=== PATIENT | male | born 1935 | race Caucasian/White ===

== ENCOUNTER 2022-02-18 08:23 | Inpatient (IN) | payer MEDICARE, SELFPAY ==
--- NOTE | ~2022-02-18 | XR_ITS ---
EXAMINATION: XR CHEST CLINICAL INFORMATION: Decreased breath sounds in the left lower lobe. COMPARISON: Chest CT scan dated 10/04/2021 TECHNIQUE: 2 views of the chest were obtained. FINDINGS: Opacification is seen in the left lower lobe. The right lung is clear. The heart and mediastinal structures are unremarkable. Diffuse sclerosis is seen in the visualized osseous structures. XR/XR chest 2V IMPRESSION: 1. Moderate left pleural effusion/infiltrate/atelectasis similar to the previous CT scan. 2. 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
[2022-02-18 08:31] VITALS: BP 115/54; PULSE 73; RESP 18; TEMP 36.1; O2SAT 98; BMI 22.9
[2022-02-18 10:19] LABS: Hematocrit 31.7 % (42.0-52.0); Hemoglobin 9.1 g/dl (14.0-18.0); Mean Corpuscular HGB Conc 28.7 g/dl (31.0-36.0); Mean Corpuscular Hemoglobin 23.9 pg (27.0-33.0); Mean Corpuscular Volume 83.4 fL (80.0-98.0); Mean Platelet Volume 9.2 fL (9.4-12.4); Platelet Count 186 X10*3/uL (160-400); Red Cell Distribution Width 19.3 % (11.0-16.0)
--- NOTE | 2022-02-18 10:19 | ECG_ITS ---
Test Reason : LEG SWELLING Blood Pressure : / mmHG Vent. Rate : 077 BPM Atrial Rate : 000 BPM P-R Int : 000 ms QRS Dur : 084 ms QT Int : 378 ms P-R-T Axes : 000 020 053 degrees QTc Int : 427 ms Atrial fibrillation Abnormal ECG No previous ECGs available Referred By: Nimo Dean Electronically Signed By:CARLOS SMITH MD
[2022-02-18 10:21] LABS: NRBC Pct Auto 1.4 /100WBC (0.0-0.2); White Blood Count 33.5 X10*3/uL (4.8-10.8)
--- NOTE | 2022-02-18 10:27 | ED_ITS ---
HPI - Extremity Problem General Chief complaint: Extremity Problem Stated complaint: leg swelling hx gout Time Seen by Provider: 02/18/22 09:45 Source: patient and EMS Mode of arrival: EMS History of Present Illness HPI Narrative: 86-year-old male with a past medical history of CHF on Lasix, gout, AFib on Eliquis, CLL, splenomegaly, anemia, gout, presenting to the ED complaining bilateral foot/leg > LLE x few days with increasing swelling and erythema. Patient reports that he saw his PCP on Monday had ultrasound was negative for DVT. Patient unable to ambulate secondary to pain this morning. Denies known injury/trauma. Also reports dyspnea in the morning and on exertion. Fever, chills, CP coughing, nausea/vomiting, numbness/tingling MD Complaint: extremity pain, extremity swelling and joint pain Onset (ago): day(s) Pain Consistency: constant Related Data Home Medications Medication Instructions Recorded Confirmed albuterol sulfate 90 mcg/actuation 2 puff PO Q6H PRN 02/18/22 02/18/22 aerosol inhaler allopurinol 300 mg tablet 1 tab PO DAILY 02/18/22 02/18/22 apixaban 5 mg tablet (Eliquis) 1 tab PO BID 02/18/22 02/18/22 ascorbic acid (vitamin C) 500 mg 1 tab PO DAILY 02/18/22 02/18/22 tablet calcium carbonate 333 mg-magnesium 1 tab PO DAILY 02/18/22 02/18/22 oxide 133 mg-zinc sulf 5 mg tablet fluticasone furoate 100 1 puff PO DAILY 02/18/22 02/18/22 mcg-vilanterol 25 mcg/dose inhalation powder (Breo Ellipta) hydroxyurea 500 mg capsule 1 cap PO DAILY 02/18/22 02/18/22 metoprolol tartrate 25 mg tablet 1.5 tab PO BID 02/18/22 02/18/22 fobhsaoh-yqq-fnnsx acid 300 1 tab PO DAILY 02/18/22 02/18/22 mcg-lycopene 600 mcg-lutein 300 mcg tablet (Centrum Silver Men) omega 0-ata-ivt-fish oil 1,200 mg 1 cap PO DAILY 02/18/22 02/18/22 (144 mg-216 mg) capsule (Fish Oil) tamsulosin 0.4 mg capsule 1 cap PO DAILY 02/18/22 02/18/22 torsemide 20 mg tablet 3 tab PO BID 02/18/22 02/18/22 vitamin A-vitamin C-vit E-min 1 tab PO DAILY 02/18/22 02/18/22 tablet Allergies Allergy/AdvReac Type Severity Reaction Status Date / Time No Known Allergies Allergy Verified 02/18/22 10:19 Review of Systems Review of Systems: Constitutional: No Fever, No Chills, No Fatigue, No Malaise ENT/Mouth: No Ear Pain, No Nasal Congestion, No sore throat, No Rhinorrhea Eyes: No Eye Pain, No Swelling, No Redness, No Discharge Cardiovascular: No Chest Pain, + SOB, + Dyspnea on Exertion, No Orthopnea, + Edema, No Palpitations Respiratory: No Cough, No Sputum, No Wheezing, No Dyspnea Gastrointestinal: No Nausea, No Vomiting, No Diarrhea, No Constipation, No Abdominal pain Genitourinary: No Dysuria, No Urinary Frequency, No Hematuria, No Flank Pain, No Urinary Flow Changes Musculoskeletal: + joint pain, No Myalgias, + Joint Swelling Skin: + Skin Lesions, No rash Neuro: No Weakness, No Numbness, No Paresthesias, No Headache Yes all other systems are reviewed and are negative [facility] Past Medical History Attestation statement: The following information was validated with the patient. Medical History Afib CHF (congestive heart failure) Gout Social History Social History Advance Directives: Yes Advance Directives Information Provided: Yes Advance Directives on File: No Physical Exam Vital Signs: Vital Signs: Last Vital Signs Temp 97.0 F 02/18/22 08:31 Pulse 75 02/18/22 12:09 Resp 14 02/18/22 12:09 BP 123/61 02/18/22 12:09 Pulse Ox 94 02/18/22 12:09 BMI result Body Mass Index 22.9 Const: General: cooperative, healthy appearing and no acute distress Orientation/consciousness: patient oriented x3 Limitations: no limitations HEENT: Head: Yes normal to inspection and Yes atraumatic Ears: hearing grossly normal bilaterally General nose exam: Normal external nose present Face and sinus: Yes normal facial exam Eyes: General: appearance normal, both eyes and all related structures EOM: EOMs intact bilaterally Neck: Neck: Yes normal visual inspection and Yes no meningeal signs Resp: Effort & Inspection: normal respiratory effort Auscultation: diminished lung sounds on the left in the lower lung chance Cardio: Rate: regular rate Heart sounds: S1 normal heart sound present and S2 normal heart sound present GI: Inspection: Yes normal to inspection Palpation (GI): Soft to palpation, nontender, no guarding and not rigid : General: Yes no CVA tenderness Back/Spine/Pelvis: Back: no CVA tenderness Skin: Rashes: no rashes Wounds: no wounds Neuro: General: patient oriented x3 and no meningeal signs Gait exam (Neuro): Normal gait present Extrem: Other: Please refer to imaging, bilateral LE pitting edema > LLE with a the extremity erythema and noted erythema to MTP. NV intact Course Course Course Narrative: - leukocytosis of 33.5 > likely chronic from patient's CLL, pending medical records from [facility] -per records obtained from [facility] on 01/15/22 his WBC count at that time was 35,000 -ESR/CRP mildly elevated. BUN of 24. BNP of 458, labs otherwise unremarkable XR chest 2V IMPRESSION: 1. Moderate left pleural effusion/infiltrate/atelectasis similar to the previous CT scan. 2. 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 > will discuss case with hospitalist as patient unable to ambulate secondary to pain, and with exertional dyspnea/dyspnea in the a.m. Plan to admit for further management MDM - Extremity (Nontraumatic) MDM Narrative Medical decision making narrative: 86-year-old male with a past medical history of CHF on Lasix, gout, AFib on Eliquis, CLL, splenomegaly, anemia, gout, presenting to the ED complaining bilateral foot/leg > LLE x few days with increasing swelling and erythema. Also reports dyspnea in the morning and on exertion. On exam vital signs stable, NAD, physical exam as above. Concern for CHF exacerbation vs pleural effusion vs cellulitis vs gout. Unlikely DVT as patient is anticoagulated and recent negative ultrasound Plan: EKG, labs, CXR, re-evaluate Differential Diagnosis Differential diagnosis: Likely gout, cellulitis, lower extremity edema and deep vein thrombosis of lower extremity Medical Records Attestation: I reviewed the patient's medical records. Lab Data Attestation: I reviewed the patient's lab results. Result diagrams: 02/18/22 10:10 02/18/22 10:10 Labs: Lab Results 02/18/22 02/18/22 02/18/22 Range/Units 10:10 10:10 10:10 WBC 33.5 H* (4.8-10.8) X10*3/uL RBC 3.80 L (4.60-5.80) X10*6/uL Hgb 9.1 L (14.0-18.0) g/dl Hct 31.7 L (42.0-52.0) % MCV 83.4 (80.0-98.0) fL MCH 23.9 L (27.0-33.0) pg MCHC 28.7 L (31.0-36.0) g/dl RDW 19.3 H (11.0-16.0) % Plt Count 186 (160-400) X10*3/uL MPV 9.2 L (9.4-12.4) fL Immature Gran % (Auto) Cancelled Neut % (Auto) Cancelled Lymph % (Auto) Cancelled [place] % (Auto) Cancelled Eos % (Auto) Cancelled Baso % (Auto) Cancelled Lymph # (Auto) Cancelled [place] # (Auto) Cancelled Eos # (Auto) Cancelled Baso # (Auto) Cancelled Abs Immat Gran (auto) Cancelled Absolute Neuts (auto) Cancelled Absolute Nucleated RBC 0.470 H (0.0-0.012) X10*3/uL Nucleated RBC % (auto) 1.4 H (0.0-0.2) /100WBC Neutrophils % (Manual) 73 (45-73) % Band Neutrophils % 12 H (3-5) % Lymphocytes % (Manual) 6 L (20-40) % Monocytes % (Manual) 3 (2-11) % Eosinophils % (Manual) 3 (0-4) % Basophils % (Manual) 2 (0-2) % Metamyelocytes % 1 % Abs Neuts (Manual) 28.5 H (2.0-8.3) X10*3/uL Lymphocytes # (Manual) 2.0 (1.2-4.9) X10*3/uL Monocytes # (Manual) 1.0 (0.1-1.2) X10*3/uL Eosinophils # (Manual) 1.0 H (0.0-0.4) X10*3/uL Basophils # (Manual) 0.7 H (0.0-0.2) X10*3/uL Metamyelocytes # 0.3 X10*3/uL Nucleated RBCs 3 H (0-0) /100WBC Platelet Estimate NORMAL (NORMAL) Plt Morphology Comment NORMAL RBC Morphology NOTED Polychromasia 2+ (3-5) /OIF Hypochromasia 1+ (5-14) /OIF Basophilic Stippling 1+ (0-2) /OIF Microcytosis 1+ (5-14) /OIF Tear Drop Cells 2+ (3-5) /OIF Ovalocytes 2+ (15-30) /OIF Acanthocytes (Spur) 2+ (3-5) /OIF Schistocytes 1+ (0-2) /OIF Smear Path Review SEE NOTE ESR 17 H (0-15) MM/HR PT (9.9-13.0) SEC INR (0.9-1.1) Sodium 138 (135-145) mmol/L Potassium 4.5 (3.3-5.1) mmol/L Chloride 100 (96-108) mmol/L Carbon Dioxide 31 H (22-29) mmol/L Anion Gap 12 (12-20) BUN 24 H (9-16) mg/dL Creatinine 1.22 (0.5-1.4) mg/dL Estim Creat Clear Calc 46.2 Estimated GFR 57 Random Glucose 114 (60-115) mg/dL Lactic Acid (0.5-2.0) mmol/L Calcium 8.3 L (8.4-10.2) mg/dL Magnesium 2.7 H (1.6-2.6) mg/dL Total Bilirubin 0.9 (0.0-1.0) mg/dL AST 14 (5-37) U/L ALT 8 (0-40) U/L Alkaline Phosphatase 79 (39-117) U/L Troponin I High Sens (<3.5-35.0) ng/L C-Reactive Protein 3.25 H (< or = 0.50) mg/dL C-React Prot High Sens B-Natriuretic Peptide (<100) pg/mL Total Protein 6.2 L (6.5-8.0) g/dL Albumin 3.4 L (3.5-5.0) g/dL COVID-19 ([facility]ISTIDES) (Negative) COVID-19 Clin Com 02/18/22 02/18/22 02/18/22 Range/Units 10:10 10:10 10:10 WBC (4.8-10.8) X10*3/uL RBC (4.60-5.80) X10*6/uL Hgb (14.0-18.0) g/dl Hct (42.0-52.0) % MCV (80.0-98.0) fL MCH (27.0-33.0) pg MCHC (31.0-36.0) g/dl RDW (11.0-16.0) % Plt Count (160-400) X10*3/uL MPV (9.4-12.4) fL Immature Gran % (Auto) Neut % (Auto) Lymph % (Auto) [place] % (Auto) Eos % (Auto) Baso % (Auto) Lymph # (Auto) [place] # (Auto) Eos # (Auto) Baso # (Auto) Abs Immat Gran (auto) Absolute Neuts (auto) Absolute Nucleated RBC (0.0-0.012) X10*3/uL Nucleated RBC % (auto) (0.0-0.2) /100WBC Neutrophils % (Manual) (45-73) % Band Neutrophils % (3-5) % Lymphocytes % (Manual) (20-40) % Monocytes % (Manual) (2-11) % Eosinophils % (Manual) (0-4) % Basophils % (Manual) (0-2) % Metamyelocytes % % Abs Neuts (Manual) (2.0-8.3) X10*3/uL Lymphocytes # (Manual) (1.2-4.9) X10*3/uL Monocytes # (Manual) (0.1-1.2) X10*3/uL Eosinophils # (Manual) (0.0-0.4) X10*3/uL Basophils # (Manual) (0.0-0.2) X10*3/uL Metamyelocytes # X10*3/uL Nucleated RBCs (0-0) /100WBC Platelet Estimate (NORMAL) Plt Morphology Comment RBC Morphology Polychromasia /OIF Hypochromasia /OIF Basophilic Stippling /OIF Microcytosis /OIF Tear Drop Cells /OIF Ovalocytes /OIF Acanthocytes (Spur) /OIF Schistocytes /OIF Smear Path Review ESR (0-15) MM/HR PT 17.3 H (9.9-13.0) SEC INR 1.5 H (0.9-1.1) Sodium (135-145) mmol/L Potassium (3.3-5.1) mmol/L Chloride (96-108) mmol/L Carbon Dioxide (22-29) mmol/L Anion Gap (12-20) BUN (9-16) mg/dL Creatinine (0.5-1.4) mg/dL Estim Creat Clear Calc Estimated GFR Random Glucose (60-115) mg/dL Lactic Acid 1.1 (0.5-2.0) mmol/L Calcium (8.4-10.2) mg/dL Magnesium (1.6-2.6) mg/dL Total Bilirubin (0.0-1.0) mg/dL AST (5-37) U/L ALT (0-40) U/L Alkaline Phosphatase (39-117) U/L Troponin I High Sens (<3.5-35.0) ng/L C-Reactive Protein (< or = 0.50) mg/dL C-React Prot High Sens Cancelled B-Natriuretic Peptide (<100) pg/mL Total Protein (6.5-8.0) g/dL Albumin (3.5-5.0) g/dL COVID-19 ([facility]) (Negative) COVID-19 Clin Com 02/18/22 02/18/22 Range/Units 10:10 10:45 WBC (4.8-10.8) X10*3/uL RBC (4.60-5.80) X10*6/uL Hgb (14.0-18.0) g/dl Hct (42.0-52.0) % MCV (80.0-98.0) fL MCH (27.0-33.0) pg MCHC (31.0-36.0) g/dl RDW (11.0-16.0) % Plt Count (160-400) X10*3/uL MPV (9.4-12.4) fL Immature Gran % (Auto) Neut % (Auto) Lymph % (Auto) [place] % (Auto) Eos % (Auto) Baso % (Auto) Lymph # (Auto) [place] # (Auto) Eos # (Auto) Baso # (Auto) Abs Immat Gran (auto) Absolute Neuts (auto) Absolute Nucleated RBC (0.0-0.012) X10*3/uL Nucleated RBC % (auto) (0.0-0.2) /100WBC Neutrophils % (Manual) (45-73) % Band Neutrophils % (3-5) % Lymphocytes % (Manual) (20-40) % Monocytes % (Manual) (2-11) % Eosinophils % (Manual) (0-4) % Basophils % (Manual) (0-2) % Metamyelocytes % % Abs Neuts (Manual) (2.0-8.3) X10*3/uL Lymphocytes # (Manual) (1.2-4.9) X10*3/uL Monocytes # (Manual) (0.1-1.2) X10*3/uL Eosinophils # (Manual) (0.0-0.4) X10*3/uL Basophils # (Manual) (0.0-0.2) X10*3/uL Metamyelocytes # X10*3/uL Nucleated RBCs (0-0) /100WBC Platelet Estimate (NORMAL) Plt Morphology Comment RBC Morphology Polychromasia /OIF Hypochromasia /OIF Basophilic Stippling /OIF Microcytosis /OIF Tear Drop Cells /OIF Ovalocytes /OIF Acanthocytes (Spur) /OIF Schistocytes /OIF Smear Path Review ESR (0-15) MM/HR PT (9.9-13.0) SEC INR (0.9-1.1) Sodium (135-145) mmol/L Potassium (3.3-5.1) mmol/L Chloride (96-108) mmol/L Carbon Dioxide (22-29) mmol/L Anion Gap (12-20) BUN (9-16) mg/dL Creatinine (0.5-1.4) mg/dL Estim Creat Clear Calc Estimated GFR Random Glucose (60-115) mg/dL Lactic Acid (0.5-2.0) mmol/L Calcium (8.4-10.2) mg/dL Magnesium (1.6-2.6) mg/dL Total Bilirubin (0.0-1.0) mg/dL AST (5-37) U/L ALT (0-40) U/L Alkaline Phosphatase (39-117) U/L Troponin I High Sens < 3.5 (<3.5-35.0) ng/L C-Reactive Protein (< or = 0.50) mg/dL C-React Prot High Sens B-Natriuretic Peptide 458 H (<100) pg/mL Total Protein (6.5-8.0) g/dL Albumin (3.5-5.0) g/dL COVID-19 ([facility]) Negative (Negative) COVID-19 Clin Com See Note ECG Data Attestation EKG: I personally reviewed and interpreted this ECG as follows: ECG interpretation date: 02/18/22 ECG interpretation time: 11:40 Interpretation: EKG AFib at a rate of 77. QTC 427. No STEMI/nonischemic Discharge Plan Discharge Clinical Impression: Gout, Lower extremity edema, Cellulitis Patient Disposition: Admitted As Inpatient Prescriptions: No Action hydroxyurea 500 mg capsule 1 cap PO DAILY 0RF torsemide 20 mg tablet 3 tab PO BID 0RF ascorbic acid (vitamin C) 500 mg tablet 1 tab PO DAILY 0RF tamsulosin 0.4 mg capsule 1 cap PO DAILY 0RF allopurinol 300 mg tablet 1 tab PO DAILY 0RF albuterol sulfate 90 mcg/actuation HFA aerosol inhaler 2 puff PO Q6H PRN (Reason: Wheezing) 0RF metoprolol tartrate 25 mg tablet 1.5 tab PO BID 0RF Eliquis 5 mg tablet 1 tab PO BID 0RF Breo Ellipta 100-25 mcg/dose blister with device 1 puff PO DAILY 0RF Ocuvite Tablet 1 tab PO DAILY 0RF omega 1-ice-gyl-fish oil [Fish Oil] 1,200 (144-216) mg Capsule 1 cap PO DAILY 0RF Centrum Silver Men 300-600-300 mcg Tablet 1 tab PO DAILY 0RF calcium carb-mag ox-zinc sulf 333-133-5 mg Tablet 1 tab PO DAILY 0RF Rx Instructions: administer with a meal
[2022-02-18 10:28] LABS: INTERNATIONAL NORM RATIO 1.5 (0.9-1.1); Prothrombin Time 17.3 SEC (9.9-13.0)
[2022-02-18 10:37] LABS: Lactic Acid 1.1 mmol/L (0.5-2.0)
[2022-02-18 10:42] LABS: Alanine Aminotransferase 8 U/L (0-40); Albumin Level 3.4 g/dL (3.5-5.0); Alkaline Phosphatase 79 U/L (39-117); Anion Gap 12 (12-20); Aspartate Amino Transferase 14 U/L (5-37); Bilirubin Total 0.9 mg/dL (0.0-1.0); Blood Urea Nitrogen 24 mg/dL (9-16); Calcium 8.3 mg/dL (8.4-10.2); Carbon Dioxide 31 mmol/L (22-29); Chloride 100 mmol/L (96-108); Creatinine Clr Calc Pharmacy 46.2; Estimated Glomerular Filt Rate 57; Glucose Random 114 mg/dL (60-115); Potassium 4.5 mmol/L (3.3-5.1); Sodium 138 mmol/L (135-145); Total Protein 6.2 g/dL (6.5-8.0)
[2022-02-18 10:43] LABS: C Reactive Protein 3.25 mg/dL (< or = 0.50)
[2022-02-18 10:50] LABS: Band Neutrophils Percent 12 % (3-5); Basophils Abs Manual 0.7 X10*3/uL (0.0-0.2); Basophils Percent Manual 2 % (0-2); Eosinophils Percent Manual 3 % (0-4); Lymphocytes Percent Manual 6 % (20-40); Metamyelocytes Absolute 0.3 X10*3/uL; Metamyelocytes Percent 1 %; Monocytes Percent Manual 3 % (2-11); Neutrophils Absolute Manual 28.5 X10*3/uL (2.0-8.3); Neutrophils Percent Manual 73 % (45-73); Nucleated Red Blood Cells 3 /100WBC (0-0)
[2022-02-18 10:53] LABS: RBC Morphology NOTED
[2022-02-18 10:54] LABS: Acanthocytes 2+ (3-5) /OIF; Basophilic Stippling 1+ (0-2) /OIF; Hypochromasia 1+ (5-14) /OIF; Microcytosis 1+ (5-14) /OIF; Ovalocytes 2+ (15-30) /OIF; Platelet Estimate NORMAL (NORMAL); Platelet Morphology Comment NORMAL; Polychromasia 2+ (3-5) /OIF; Schistocytes 1+ (0-2) /OIF; Tear Drop Cells 2+ (3-5) /OIF
[2022-02-18 10:57] LABS: Erythrocyte Sedimentation Rate 17 MM/HR (0-15)
[2022-02-18 11:08] LABS: COVID-19 Test Negative (Negative)
[2022-02-18 11:18] LABS: Magnesium 2.7 mg/dL (1.6-2.6)
--- NOTE | 2022-02-18 11:25 | PHA.MEDREC ---
Pharmacy Consult ? Medication Reconciliation Pharmacy has completed the medication reconciliation. No remarkable issues. Susy Hernandez, [employer]
[2022-02-18 11:30] LABS: B Type Natriuretic Peptide 458 pg/mL (<100); Troponin-I High Sensitivity < 3.5 ng/L (<3.5-35.0)
[2022-02-18] MEDS: cefTRIAXone sodium 1 GM in 0.9 % Sodium Chloride 50 ML IV (11:30)
[2022-02-18 12:09] VITALS: BP 123/61; PULSE 75; RESP 14; O2SAT 94
[2022-02-18 14:03] VITALS: BP 124/64; PULSE 87; RESP 14; TEMP 37.2; O2SAT 95
[2022-02-18] MEDS: Furosemide 40 MG/4 ML VIAL IVPUSH (14:28)
--- NOTE | 2022-02-18 14:53 | PM.IMHP ---
History of Present Illness Date of Service: 02/18/22 Chief Complaint: Right leg pain 86-year-old male with a past medical history of CHF on Lasix, gout, AFib on Eliquis, CLL, splenomegaly, anemia, gout, presenting to the ED complaining bilateral foot/leg > LLE x few days with increasing swelling and erythema. Patient reports that he saw his PCP on Monday had ultrasound was negative for DVT.? Patient unable to ambulate secondary to pain this morning.? Denies known injury/trauma. Patient also recounts a known history of gout for which he was started on allopurinol 3 weeks ago. He stated shortly after starting allopurinol his toe foot and leg pain became markedly worse. During this episode, he continued to take his Lasix. He states he has never been on a full course of steroids for this gout. In the ER, was given 1 dose of ceftriaxone for mild cellulitic changes left lower extremity. At this time he will be admitted for treatment of his cellulitis and his gout. Review of Systems Review of Systems: Denies chest pain Denies shortness of breath Denies nausea vomiting diarrhea Admits to a left foot leg pain worsens allopurinol Denies trauma [facility] Medical History Afib CHF (congestive heart failure) Gout Social History Advance Directives: Yes Advance Directives Information Provided: Yes Advance Directives on File: No Meds Allergies Allergy/AdvReac Type Severity Reaction Status Date / Time No Known Allergies Allergy Verified 02/18/22 10:19 Active Medications: Current Medications Albuterol Sulfate (Albuterol Sulfate 90 Mcg 8 Gm Inhaler) 2 puff INHALE Q6H PRN PRN Reason: Wheezing Apixaban (Apixaban 5 Mg Tablet) 5 mg PO BID [facility] Ascorbic Acid (Ascorbic Acid 500 Mg Tablet) 500 mg PO DAILY [facility] Colchicine (Colchicine 0.6 Mg Tablet) 0.6 mg PO DAILY [facility] Fluticasone/Vilanterol (Fluticasone/Vilanterol 100/25 Blst.W.Dev) 1 puff INHALE RDAILY [facility] Hydroxyurea (Hydroxyurea 500 Mg Capsule) 500 mg PO DAILY [facility] Ceftriaxone Sodium 1 gm/ (Sodium Chloride) 50 mls @ 100 mls/hr IV Q24H [facility] Metoprolol Tartrate (Metoprolol Tartrate 25 Mg Tablet) 37.5 mg PO BID [facility]; Protocol Multivitamins/Vitamin C (Multivitamin Tablet) 1 tab PO DAILY [facility] Pharmacy Consult (Consult Rx Perform Med Rec) 1 each MISCELLANE ONCE PRN PRN Reason: Consult order Prednisone (Prednisone 10 Mg Tablet) 50 mg PO DAILY [facility] Sodium Chloride (0.9 % Sodium Chloride Flush 3 Ml Syringe) 3 ml IVFLUSH QSHIFT [facility] Tamsulosin HCl (Tamsulosin Hcl 0.4 Mg Capsule) 0.4 mg PO DAILY [facility] Torsemide (Torsemide 20 Mg Tablet) 60 mg PO BIDWM [facility]; Protocol Home Medications Medication Instructions Recorded Confirmed Last Taken Type albuterol sulfate 90 mcg/actuation 2 puff PO Q6H PRN 02/18/22 02/18/22 Unknown History aerosol inhaler allopurinol 300 mg tablet 1 tab PO DAILY 02/18/22 02/18/22 02/18/22 History apixaban 5 mg tablet (Eliquis) 1 tab PO BID 02/18/22 02/18/22 02/18/22 History ascorbic acid (vitamin C) 500 mg 1 tab PO DAILY 02/18/22 02/18/22 02/18/22 History tablet calcium carbonate 333 mg-magnesium 1 tab PO DAILY 02/18/22 02/18/22 02/18/22 History oxide 133 mg-zinc sulf 5 mg tablet fluticasone furoate 100 1 puff PO DAILY 02/18/22 02/18/22 02/18/22 History mcg-vilanterol 25 mcg/dose inhalation powder (Breo Ellipta) hydroxyurea 500 mg capsule 1 cap PO DAILY 02/18/22 02/18/22 02/18/22 History metoprolol tartrate 25 mg tablet 1.5 tab PO BID 02/18/22 02/18/22 02/18/22 History ltennzuf-tep-piocg acid 300 1 tab PO DAILY 02/18/22 02/18/22 02/18/22 History mcg-lycopene 600 mcg-lutein 300 mcg tablet (Centrum Silver Men) omega 9-sqv-tan-fish oil 1,200 mg 1 cap PO DAILY 02/18/22 02/18/22 02/18/22 History (144 mg-216 mg) capsule (Fish Oil) tamsulosin 0.4 mg capsule 1 cap PO DAILY 02/18/22 02/18/22 02/18/22 History torsemide 20 mg tablet 3 tab PO BID 02/18/22 02/18/22 02/18/22 History vitamin A-vitamin C-vit E-min 1 tab PO DAILY 02/18/22 02/18/22 02/18/22 History tablet Physical Exam Vital Signs and Narrative: Vital Signs: Last Vital Signs Temp 98.9 F 02/18/22 14:03 Pulse 87 02/18/22 14:03 Resp 14 02/18/22 14:03 BP 124/64 02/18/22 14:03 Pulse Ox 95 02/18/22 14:03 BMI result Body Mass Index 22.9 Const: Other: Awake alert oriented x3 no acute distress Resp: Other: Clear to auscultation bilaterally no rales rhonchi or wheezes Cardio: Other: No S4; positive S1-S2; no S3 murmurs or gallops GI: Other: Soft nontender nondistended normoactive bowel sounds Extrem: Other: Erythema and warmth over 1st MTP joint with pain with minimal contact. There is mild erythema and warmth along the tibial ridge to the tibial plateau on the left side. Right lower extremity unremarkable Results Labs CBC and Chem 7: 02/18/22 10:10 02/18/22 10:10 Labs: Laboratory Results - last 24 hr 02/18/22 02/18/22 02/18/22 10:10 10:10 10:10 MCV 83.4 MCH 23.9 L MCHC 28.7 L RDW 19.3 H Plt Count 186 MPV 9.2 L Immature Gran % (Auto) Cancelled Neut % (Auto) Cancelled Lymph % (Auto) Cancelled Cass % (Auto) Cancelled Eos % (Auto) Cancelled Baso % (Auto) Cancelled Lymph # (Auto) Cancelled Cass # (Auto) Cancelled Eos # (Auto) Cancelled Baso # (Auto) Cancelled Abs Immat Gran (auto) Cancelled Absolute Neuts (auto) Cancelled Absolute Nucleated RBC 0.470 H Nucleated RBC % (auto) 1.4 H Neutrophils % (Manual) 73 Band Neutrophils % 12 H Lymphocytes % (Manual) 6 L Monocytes % (Manual) 3 Eosinophils % (Manual) 3 Basophils % (Manual) 2 Metamyelocytes % 1 Abs Neuts (Manual) 28.5 H Lymphocytes # (Manual) 2.0 Monocytes # (Manual) 1.0 Eosinophils # (Manual) 1.0 H Basophils # (Manual) 0.7 H Metamyelocytes # 0.3 Nucleated RBCs 3 H Platelet Estimate NORMAL Plt Morphology Comment NORMAL RBC Morphology NOTED Polychromasia 2+ (3-5) Hypochromasia 1+ (5-14) Basophilic Stippling 1+ (0-2) Microcytosis 1+ (5-14) Tear Drop Cells 2+ (3-5) Ovalocytes 2+ (15-30) Acanthocytes (Spur) 2+ (3-5) Schistocytes 1+ (0-2) Smear Path Review SEE NOTE ESR 17 H PT INR Anion Gap 12 Estim Creat Clear Calc 46.2 Estimated GFR 57 Random Glucose 114 Lactic Acid Calcium 8.3 L Magnesium 2.7 H Total Bilirubin 0.9 AST 14 ALT 8 Alkaline Phosphatase 79 Troponin I High Sens C-Reactive Protein 3.25 H C-React Prot High Sens B-Natriuretic Peptide Total Protein 6.2 L Albumin 3.4 L COVID-19 ([facility]) COVID-19 Clin Com 02/18/22 02/18/22 02/18/22 10:10 10:10 10:10 MCV MCH MCHC RDW Plt Count MPV Immature Gran % (Auto) Neut % (Auto) Lymph % (Auto) Cass % (Auto) Eos % (Auto) Baso % (Auto) Lymph # (Auto) Cass # (Auto) Eos # (Auto) Baso # (Auto) Abs Immat Gran (auto) Absolute Neuts (auto) Absolute Nucleated RBC Nucleated RBC % (auto) Neutrophils % (Manual) Band Neutrophils % Lymphocytes % (Manual) Monocytes % (Manual) Eosinophils % (Manual) Basophils % (Manual) Metamyelocytes % Abs Neuts (Manual) Lymphocytes # (Manual) Monocytes # (Manual) Eosinophils # (Manual) Basophils # (Manual) Metamyelocytes # Nucleated RBCs Platelet Estimate Plt Morphology Comment RBC Morphology Polychromasia Hypochromasia Basophilic Stippling Microcytosis Tear Drop Cells Ovalocytes Acanthocytes (Spur) Schistocytes Smear Path Review ESR PT 17.3 H INR 1.5 H Anion Gap Estim Creat Clear Calc Estimated GFR Random Glucose Lactic Acid 1.1 Calcium Magnesium Total Bilirubin AST ALT Alkaline Phosphatase Troponin I High Sens C-Reactive Protein C-React Prot High Sens Cancelled B-Natriuretic Peptide Total Protein Albumin COVID-19 ([facility]) COVID-19 Clin Com 02/18/22 02/18/22 10:10 10:45 MCV MCH MCHC RDW Plt Count MPV Immature Gran % (Auto) Neut % (Auto) Lymph % (Auto) Cass % (Auto) Eos % (Auto) Baso % (Auto) Lymph # (Auto) Cass # (Auto) Eos # (Auto) Baso # (Auto) Abs Immat Gran (auto) Absolute Neuts (auto) Absolute Nucleated RBC Nucleated RBC % (auto) Neutrophils % (Manual) Band Neutrophils % Lymphocytes % (Manual) Monocytes % (Manual) Eosinophils % (Manual) Basophils % (Manual) Metamyelocytes % Abs Neuts (Manual) Lymphocytes # (Manual) Monocytes # (Manual) Eosinophils # (Manual) Basophils # (Manual) Metamyelocytes # Nucleated RBCs Platelet Estimate Plt Morphology Comment RBC Morphology Polychromasia Hypochromasia Basophilic Stippling Microcytosis Tear Drop Cells Ovalocytes Acanthocytes (Spur) Schistocytes Smear Path Review ESR PT INR Anion Gap Estim Creat Clear Calc Estimated GFR Random Glucose Lactic Acid Calcium Magnesium Total Bilirubin AST ALT Alkaline Phosphatase Troponin I High Sens < 3.5 C-Reactive Protein C-React Prot High Sens B-Natriuretic Peptide 458 H Total Protein Albumin COVID-19 ([facility]) Negative COVID-19 Clin Com See Note Imaging Radiologist's Impressions: Impressions Chest X-Ray 02/18/22 10:25 IMPRESSION: 1. Moderate left pleural effusion/infiltrate/atelectasis similar to the previous CT scan. 2. 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 Assessment and Plan (1) Gout: Status: Acute (2) Cellulitis: Status: Acute (3) CLL (chronic lymphocytic leukemia): Status: Acute (4) Chronic a-fib: Status: Acute (5) Lower extremity edema: Status: Acute Plan 86-year-old male with past medical history for AFib on Eliquis to questionable CHF on Lasix in CLL presents with red painful left great toe along with redness along tibial ridge of left lower leg. This all in the backdrop of known gout. States he has seen multiple providers and was put on allopurinol approximately 3 weeks ago after which the pain and symptoms got worse. Recent ultrasound was negative for DVT. 1.Cellulitis -continue IV CTX -follow clinical response/CBC 2. Gout -will DC allopurinol during this acute attack -start prednisone 50 mg daily along with colchicine 0.6 mg daily x3 days -follow renals/divalents 3. Chronic atrial fibrillation -rate control adequate on current therapies -continue Eliquis as ordered -adjust as indicated 4. History of chronic systolic heart failure -no evidence of failure on exam -will continue diuretic as ordered -may need to reassess as outpatient if gouty flares or frequent (patient states no exacerbation since he can remember) 5.CLL -WBC at baseline -continue hydroxyurea Full code Eliquis Will likely require 2 midnights going forward for treatment of cellulitis and gouty flare Quality Stroke Does the patient have a stroke diagnosis?: No VTE Prior VTE?: No VTE Risk Level:: Medical - moderate - high VTE Device Contraindication: Treatment Not Indicated VTE Drug Contraindication: N/A - Med Ordered
[2022-02-18 15:24] VITALS: BP 128/54; PULSE 87; RESP 16; TEMP 36.6; O2SAT 97
[2022-02-18] MEDS: Torsemide 20 MG TABLET 60 MG PO (18:05)
--- NOTE | 2022-02-18 19:36 | MHC.CM.PN ---
CM met with patient and his daughter/HCP Rivka Mustafa ([phone]). Copy requested. IMM 02/18. Vax/boosted/Moderna. Lives with daughter. Uses a walker. Recently discharged from [facility]. Has Care coordinated with [facility] ( ). Has an RN who comes to his home monthly. A&Ox3. Still drives locally. [place]. Some care at [place] for audiology/podiatry. Is not vet connected. D/C plan: Home with ? VNA services. Will need PT consult. Family to provide transportation home. CM to follow for d/c needs.
--- NOTE | 2022-02-18 20:17 | PC.NURSE ---
Addendum entered by Leanne Servin, RN 02/18/22 20:18: Wrong Pt, Took report from Yvette to assume care of PT, Pt brought from Main ED to Overflow via wheel chair, Pt A+Ox3, resting in bed, safety maintained, call light in reach, this RN continues to monitor. Original Note: Took report from Alicia to assume care of Pt, Pt resting, call light in reach, this RN continues to monitor
[2022-02-18 21:10] VITALS: BP 133/59; PULSE 93; RESP 12; TEMP 36.5; O2SAT 93
[2022-02-18] MEDS: Metoprolol Tartrate 25 MG TABLET 37.5 MG PO (22:11)
[2022-02-18] MEDS: Apixaban 5 MG TABLET PO (22:11)
[2022-02-19] VITALS (7 sets, daily range): BP systolic 114–139; BP diastolic 55–64; PULSE 68–96; RESP 16–20; TEMP 36.3–37.1; O2SAT 91–97
[2022-02-19] MEDS: 0.9 % Sodium Chloride Flush 3 ML SYRINGE IVFLUSH ×3 (00:04→16:15)
[2022-02-19] MEDS: Fluticasone/Vilanterol 100/25 BLST.W.DEV 1 PUFF INHALE (07:26)
[2022-02-19 08:17] LABS: Hematocrit 34.6 % (42.0-52.0)
[2022-02-19 08:19] LABS: Mean Corpuscular HGB Conc 28.9 g/dl (31.0-36.0); Mean Corpuscular Hemoglobin 24.1 pg (27.0-33.0); Mean Corpuscular Volume 83.4 fL (80.0-98.0); Mean Platelet Volume 10.3 fL (9.4-12.4); Platelet Count 201 X10*3/uL (160-400); Red Blood Count 4.15 X10*6/uL (4.60-5.80); Red Cell Distribution Width 19.6 % (11.0-16.0)
[2022-02-19 08:24] LABS: NRBC Pct Auto 1.6 /100WBC (0.0-0.2); PLT ABN DIST 1
[2022-02-19 08:30] LABS: White Blood Count 34.6 X10*3/uL (4.8-10.8)
[2022-02-19 08:55] LABS: Alanine Aminotransferase 8 U/L (0-40); Albumin Level 3.5 g/dL (3.5-5.0); Alkaline Phosphatase 83 U/L (39-117); Anion Gap 12 (12-20); Aspartate Amino Transferase 15 U/L (5-37); Bilirubin Total 1.3 mg/dL (0.0-1.0); Blood Urea Nitrogen 24 mg/dL (9-16); Calcium 8.9 mg/dL (8.4-10.2); Carbon Dioxide 33 mmol/L (22-29); Chloride 100 mmol/L (96-108); Creatinine Clr Calc Pharmacy 43.7; Estimated Glomerular Filt Rate 53; Glucose Random 91 mg/dL (60-115); Potassium 5.1 mmol/L (3.3-5.1); Sodium 140 mmol/L (135-145); Total Protein 6.4 g/dL (6.5-8.0)
[2022-02-19 09:22] LABS: Band Neutrophils Percent 12 % (3-5); Eosinophils Absolute Manual 0.3 X10*3/uL (0.0-0.4); Eosinophils Percent Manual 1 % (0-4); Lymphocytes Absolute Manual 2.8 X10*3/uL (1.2-4.9); Lymphocytes Percent Manual 8 % (20-40); Metamyelocytes Percent 3 %; Monocytes Absolute Manual 1.4 X10*3/uL (0.1-1.2); Monocytes Percent Manual 4 % (2-11); Myelocytes Percent 3 %; Neutrophils Absolute Manual 27.3 X10*3/uL (2.0-8.3); Neutrophils Percent Manual 67 % (45-73); Nucleated Red Blood Cells 1 /100WBC (0-0); Promyelocytes Absolute 0.7 X10*3/uL; Promyelocytes Percent 2 %
[2022-02-19 09:24] LABS: Large Platelet PRESENT; Macrocytosis 1+ (5-14) /OIF; Microcytosis 1+ (5-14) /OIF; Ovalocytes 1+ (5-14) /OIF; Platelet Estimate NORMAL (NORMAL); Platelet Morphology Comment NOTED; RBC Morphology NOTED; Stomatocytes 1+ (5-14) /OIF
[2022-02-19 09:25] LABS: Basophilic Stippling 1+ (0-2) /OIF; Polychromasia 1+ (0-2) /OIF; Tear Drop Cells 3+ (>5) /OIF
[2022-02-19] MEDS: Metoprolol Tartrate 25 MG TABLET 37.5 MG PO ×2 (09:58→20:45)
[2022-02-19] MEDS: Multivitamin TABLET 1 TAB PO (09:58)
[2022-02-19] MEDS: Colchicine 0.6 MG TABLET PO (09:58)
[2022-02-19] MEDS: Hydroxyurea 500 MG CAPSULE PO (09:58)
[2022-02-19] MEDS: Tamsulosin HCL 0.4 MG CAPSULE PO (09:58)
[2022-02-19] MEDS: Ascorbic Acid 500 MG TABLET PO (10:00)
[2022-02-19] MEDS: Apixaban 5 MG TABLET PO ×2 (10:00→20:45)
[2022-02-19] MEDS: predniSONE 10 MG TABLET 50 MG PO (10:00)
[2022-02-19] MEDS: Torsemide 20 MG TABLET 60 MG PO ×2 (10:00→16:15)
[2022-02-19] MEDS: cefTRIAXone sodium 1 GM in 0.9 % Sodium Chloride 50 ML IV (11:59)
--- NOTE | 2022-02-19 12:17 | P.PNIM_ITS ---
Subjective Subjective Date of Service: 02/19/22 Interval History: No acute issues overnight. Notes improvement. Tylenol effective for pain Review of Systems Denies chest pain Denies shortness of breath Denies nausea vomiting diarrhea Admits to a left foot leg pain worsens allopurinol Denies trauma Physical Exam Vital Signs: Vital Signs: Last Vital Signs Temp 97.9 F 02/19/22 11:25 Pulse 93 02/19/22 11:25 Resp 20 02/19/22 11:25 BP 133/64 02/19/22 11:25 Pulse Ox 95 02/19/22 11:25 BMI result Body Mass Index 22.9 Const: Other: Awake alert oriented x3 no acute distress Resp: Other: Clear to auscultation bilaterally no rales rhonchi or wheezes Cardio: Other: No S4; positive S1-S2; no S3 murmurs or gallops GI: Other: Soft nontender nondistended normoactive bowel sounds Extrem: Other: Erythema and warmth over 1st MTP joint with pain with minimal contact. There is mild erythema and warmth along the tibial ridge to the tibial plateau on the left side. Right lower extremity unremarkable Objective Data Active Medications Albuterol Sulfate (Albuterol Sulfate 90 Mcg 8 Gm Inhaler) 2 puff INHALE Q6H PRN PRN Reason: Wheezing Apixaban (Apixaban 5 Mg Tablet) 5 mg PO BID [facility] Last Admin: 02/19/22 10:00 Dose: 5 mg Documented by: [facility]AN Ascorbic Acid (Ascorbic Acid 500 Mg Tablet) 500 mg PO DAILY [facility] Last Admin: 02/19/22 10:00 Dose: 500 mg Documented by: SARAN Colchicine (Colchicine 0.6 Mg Tablet) 0.6 mg PO DAILY [facility] Last Admin: 02/19/22 09:58 Dose: 0.6 mg Documented by: [facility]AN Fluticasone/Vilanterol (Fluticasone/Vilanterol 100/25 Blst.W.Dev) 1 puff INHALE RDAILY [facility] Last Admin: 02/19/22 07:26 Dose: 1 puff Documented by: JOE Hydroxyurea (Hydroxyurea 500 Mg Capsule) 500 mg PO DAILY [facility] Last Admin: 02/19/22 09:58 Dose: 500 mg Documented by: SARAN Ceftriaxone Sodium 1 gm/ (Sodium Chloride) 50 mls @ 100 mls/hr IV Q24H [facility] Last Admin: 02/19/22 11:59 Dose: 100 mls/hr Documented by: [facility] Metoprolol Tartrate (Metoprolol Tartrate 25 Mg Tablet) 37.5 mg PO BID [facility]; Protocol Last Admin: 02/19/22 09:58 Dose: 37.5 mg Documented by: SARAN Multivitamins/Vitamin C (Multivitamin Tablet) 1 tab PO DAILY [facility] Last Admin: 02/19/22 09:58 Dose: 1 tab Documented by: [facility] Pharmacy Consult (Consult Rx Perform Med Rec) 1 each MISCELLANE ONCE PRN PRN Reason: Consult order Prednisone (Prednisone 10 Mg Tablet) 50 mg PO DAILY [facility] Last Admin: 02/19/22 10:00 Dose: 50 mg Documented by: [facility]AN Sodium Chloride (0.9 % Sodium Chloride Flush 3 Ml Syringe) 3 ml IVFLUSH QSHIFT [facility] Last Admin: 02/19/22 09:58 Dose: 3 ml Documented by: [facility]AN Tamsulosin HCl (Tamsulosin Hcl 0.4 Mg Capsule) 0.4 mg PO DAILY [facility] Last Admin: 02/19/22 09:58 Dose: 0.4 mg Documented by: SARAN Torsemide (Torsemide 20 Mg Tablet) 60 mg PO BIDWM [facility]; Protocol Last Admin: 02/19/22 10:00 Dose: 60 mg Documented by: SARAN Labs CBC & Chem 7: 02/19/22 07:51 02/19/22 07:51 Labs: Laboratory Results - last 24 hr 02/19/22 02/19/22 07:51 07:51 MCV 83.4 MCH 24.1 L MCHC 28.9 L RDW 19.6 H Plt Count 201 MPV 10.3 Immature Gran % (Auto) Cancelled Neut % (Auto) Cancelled Lymph % (Auto) Cancelled [place] % (Auto) Cancelled Eos % (Auto) Cancelled Baso % (Auto) Cancelled Lymph # (Auto) Cancelled [place] # (Auto) Cancelled Eos # (Auto) Cancelled Baso # (Auto) Cancelled Abs Immat Gran (auto) Cancelled Absolute Neuts (auto) Cancelled Absolute Nucleated RBC 0.570 H Nucleated RBC % (auto) 1.6 H Neutrophils % (Manual) 67 Band Neutrophils % 12 H Lymphocytes % (Manual) 8 L Monocytes % (Manual) 4 Eosinophils % (Manual) 1 Metamyelocytes % 3 Myelocytes % 3 Promyelocytes % 2 Abs Neuts (Manual) 27.3 H Lymphocytes # (Manual) 2.8 Monocytes # (Manual) 1.4 H Eosinophils # (Manual) 0.3 Metamyelocytes # 1.0 Myelocytes # 1.0 Promyelocytes # 0.7 Nucleated RBCs 1 H Platelet Estimate NORMAL Large Platelets PRESENT Plt Morphology Comment NOTED RBC Morphology NOTED Polychromasia 1+ (0-2) Basophilic Stippling 1+ (0-2) Microcytosis 1+ (5-14) Macrocytosis 1+ (5-14) Tear Drop Cells 3+ (>5) Ovalocytes 1+ (5-14) Stomatocytes 1+ (5-14) Anion Gap 12 Estim Creat Clear Calc 43.7 Estimated GFR 53 Random Glucose 91 Calcium 8.9 D Total Bilirubin 1.3 H AST 15 ALT 8 Alkaline Phosphatase 83 Total Protein 6.4 L Albumin 3.5 Microbiology Microbiology Results: Microbiology 02/18/22 10:09 Blood Culture - Preliminary Blood - Venous No growth after 24 hours. Assessment and Plan (1) Cellulitis: Status: Acute (2) Gout: Status: Acute (3) Chronic a-fib: Status: Acute (4) CLL (chronic lymphocytic leukemia): Status: Acute Plan 86-year-old male with past medical history for AFib on Eliquis to questionable CHF on Lasix in CLL presents with red painful left great toe along with redness along tibial ridge of left lower leg. This all in the backdrop of known gout. States he has seen multiple providers and was put on allopurinol approximately 3 weeks ago after which the pain and symptoms got worse. Recent ultrasound was negative for DVT. 1.Cellulitis -continue IV CTX -follow clinical response/CBC 2. Gout -improved...APAP effective for pain -start prednisone 50 mg daily along with colchicine 0.6 mg daily x3 days -follow renals/divalents 3. Chronic atrial fibrillation -rate control adequate on current therapies -continue Eliquis as ordered -adjust as indicated 4. History of chronic systolic heart failure -no evidence of failure on exam -will continue diuretic as ordered -may need to reassess as outpatient if gouty flares or frequent (patient states no exacerbation since he can remember) 5.CLL -WBC at baseline -continue hydroxyurea Full code Roseliaquis Will likely require 1-2 midnights going forward for treatment of cellulitis and gouty flare Quality Stroke Does the patient have a stroke diagnosis?: No VTE Prior VTE?: No VTE Risk Level:: Medical - moderate - high VTE Device Contraindication: Treatment Not Indicated VTE Drug Contraindication: N/A - Med Ordered
[2022-02-19] MEDS: Acetaminophen 325 MG TABLET 650 MG PO (12:44)
[2022-02-20] MEDS: 0.9 % Sodium Chloride Flush 3 ML SYRINGE IVFLUSH ×2 (01:04→07:37)
[2022-02-20 03:46] VITALS: BP 102/58; PULSE 69; RESP 14; TEMP 36.2; O2SAT 91
[2022-02-20 04:16] LABS: Hematocrit 29.8 % (42.0-52.0); Hemoglobin 8.8 g/dl (14.0-18.0); Mean Corpuscular HGB Conc 29.5 g/dl (31.0-36.0); Mean Corpuscular Hemoglobin 24.2 pg (27.0-33.0); Mean Corpuscular Volume 82.1 fL (80.0-98.0); Mean Platelet Volume 10.2 fL (9.4-12.4); Platelet Count 169 X10*3/uL (160-400); Red Blood Count 3.63 X10*6/uL (4.60-5.80); Red Cell Distribution Width 18.8 % (11.0-16.0)
[2022-02-20 04:32] LABS: NRBC Pct Auto 1.3 /100WBC (0.0-0.2); White Blood Count 34.1 X10*3/uL (4.8-10.8)
[2022-02-20 04:55] LABS: Alanine Aminotransferase 8 U/L (0-40); Alkaline Phosphatase 73 U/L (39-117); Anion Gap 17 (12-20); Aspartate Amino Transferase 12 U/L (5-37); Atypical Lymph Absolute Manual 0.3 x10*3/uL; Atypical Lymphs Percent Manual 1 % (0-6); Band Neutrophils Percent 8 % (3-5); Basophils Abs Manual 0.7 X10*3/uL (0.0-0.2); Basophils Percent Manual 2 % (0-2); Blood Urea Nitrogen 29 mg/dL (9-16); Calcium 8.3 mg/dL (8.4-10.2); Carbon Dioxide 27 mmol/L (22-29); Chloride 99 mmol/L (96-108); Creatinine Clr Calc Pharmacy 45.5; Estimated Glomerular Filt Rate 56; Glucose Fasting 99 mg/dL (60-99); Lymphocytes Absolute Manual 1.7 X10*3/uL (1.2-4.9); Lymphocytes Percent Manual 5 % (20-40); Monocytes Absolute Manual 0.7 X10*3/uL (0.1-1.2); Monocytes Percent Manual 2 % (2-11); Myelocytes Absolute 0.3 X10*/uL; Myelocytes Percent 1 %; Neutrophils Absolute Manual 29.3 X10*3/uL (2.0-8.3); Neutrophils Percent Manual 78 % (45-73); Nucleated Red Blood Cells 3 /100WBC (0-0); Potassium 3.9 mmol/L (3.3-5.1); Promyelocytes Percent 3 %; Sodium 139 mmol/L (135-145); Total Protein 5.6 g/dL (6.5-8.0)
[2022-02-20 04:56] LABS: Macrocytosis 1+ (5-14) /OIF; Microcytosis 1+ (5-14) /OIF; Platelet Estimate SLIGHTLY DECREASED (NORMAL); Platelet Morphology Comment NOTED; RBC Morphology NOTED
[2022-02-20 04:57] LABS: Large Platelet PRESENT; Ovalocytes 1+ (5-14) /OIF; Polychromasia 2+ (3-5) /OIF; Smudge Cells PRESENT
[2022-02-20] MEDS: Multivitamin TABLET 1 TAB PO (07:34)
[2022-02-20] MEDS: Ascorbic Acid 500 MG TABLET PO (07:34)
[2022-02-20] MEDS: Fluticasone/Vilanterol 100/25 BLST.W.DEV 1 PUFF INHALE (07:34)
[2022-02-20] MEDS: Metoprolol Tartrate 25 MG TABLET 37.5 MG PO (07:34)
[2022-02-20] MEDS: Torsemide 20 MG TABLET 60 MG PO (07:36)
[2022-02-20] MEDS: Tamsulosin HCL 0.4 MG CAPSULE PO (07:36)
[2022-02-20] MEDS: predniSONE 10 MG TABLET 50 MG PO (07:36)
[2022-02-20] MEDS: Hydroxyurea 500 MG CAPSULE PO (07:36)
[2022-02-20] MEDS: Colchicine 0.6 MG TABLET PO (07:37)
[2022-02-20] MEDS: Apixaban 5 MG TABLET PO (07:37)
[2022-02-20 07:39] VITALS: BP 105/59; PULSE 78; RESP 16; TEMP 36.1; O2SAT 93
[2022-02-20 11:24] VITALS: BP 115/58; PULSE 83; RESP 18; TEMP 36.2; O2SAT 95
[2022-02-20] MEDS: cefTRIAXone sodium 1 GM in 0.9 % Sodium Chloride 50 ML IV (11:41)
--- NOTE | 2022-02-20 13:34 | P.DS_ITS ---
DS: Providers Provider Date of Service: 02/20/22 Date of admission: 02/18/22 14:37 Date of discharge: 02/20/22 Primary care physician: Zeferino Cruz MD DS: Diagnosis Discharge Diagnosis (1) Cellulitis: Status: Acute (2) Gout: Status: Acute (3) Chronic a-fib: Status: Acute (4) CLL (chronic lymphocytic leukemia): Status: Acute DS: Summary Hospital Course Hospital Course: 86-year-old male with a past medical history of CHF on Lasix, gout, AFib on Eliquis, CLL, splenomegaly, anemia, gout, presenting to the ED complaining bilateral foot/leg > LLE x few days with increasing swelling and erythema. Patient reports that he saw his PCP on Monday had ultrasound was negative for DVT.? Patient unable to ambulate secondary to pain this morning.? Denies known injury/trauma. Patient also recounts a known history of gout for which he was started on allopurinol 3 weeks ago.? He stated shortly after starting allopurinol his toe foot and leg pain became markedly worse.? During this episode, he continued to take his Lasix.? He states he has never been on a full course of steroids for this gout.? In the ER, was given 1 dose of ceftriaxone for mild cellulitic changes left lower extremity.? At this time he will be admitted for treatment of his cellulitis and his gout. Hospital Course Patient was admitted on IV ceftriaxone for cellulitis. He was started on a prednisone taper, allopurinol was held. He was given colchicine 0.6 mg p.o. daily. Over the course of the next 48 hours he improved dramatically and is ask ing to be discharged. He will complete a prednisone taper and a course of oral doxycycline. He is advised not to take his allopurinol until 1 week pain free then restart. He can follow-up with his PCP. He is also instructed that if he should develop pain he should stop his allopurinol and call his primary. He voices understanding of this and all his questions were answered Time Spent with Patient Time attestation: Total time spent providing and/or coordinating discharge services: Discharge coordination time: Greater than 30 minutes Quality: Safe Use of Opioids Does Pt have an Active Cancer Diagnosis on the Problem List?: No Quality: Stroke Does the patient have a stroke diagnosis?: No Physical Exam Vital Signs: Vital Signs: Last Vital Signs Temp 97.1 F 02/20/22 11:24 Pulse 83 02/20/22 11:24 Resp 18 02/20/22 11:24 BP 115/58 L 02/20/22 11:24 Pulse Ox 95 02/20/22 11:24 BMI result Body Mass Index 22.9 Const: Other: Awake alert oriented x3 no acute distress Resp: Other: Clear to auscultation bilaterally no rales rhonchi or wheezes Cardio: Other: No S4; positive S1-S2; no S3 murmurs or gallops GI: Other: Soft nontender nondistended normoactive bowel sounds Extrem: Other: Erythema and warmth over 1st MTP joint with pain with minimal contact. There is mild erythema and warmth along the tibial ridge to the tibial plateau on the left side. Right lower extremity unremarkable DS: Data Data Completed and Pending Labs on day of discharge: Laboratory Results - last 24 hr 02/20/22 02/20/22 03:14 03:14 WBC 34.1 H* RBC 3.63 L Hgb 8.8 L Hct 29.8 L MCV 82.1 MCH 24.2 L MCHC 29.5 L RDW 18.8 H Plt Count 169 MPV 10.2 Immature Gran % (Auto) Cancelled Neut % (Auto) Cancelled Lymph % (Auto) Cancelled [place] % (Auto) Cancelled Eos % (Auto) Cancelled Baso % (Auto) Cancelled Lymph # (Auto) Cancelled [place] # (Auto) Cancelled Eos # (Auto) Cancelled Baso # (Auto) Cancelled Abs Immat Gran (auto) Cancelled Absolute Neuts (auto) Cancelled Absolute Nucleated RBC 0.430 H Nucleated RBC % (auto) 1.3 H Neutrophils % (Manual) 78 H Band Neutrophils % 8 H Lymphocytes % (Manual) 5 L Atypical Lymphs % (Man) 1 Monocytes % (Manual) 2 Basophils % (Manual) 2 Myelocytes % 1 Promyelocytes % 3 Abs Neuts (Manual) 29.3 H Lymphocytes # (Manual) 1.7 Atyp Lymphs # (Manual) 0.3 Monocytes # (Manual) 0.7 Basophils # (Manual) 0.7 H Myelocytes # 0.3 Promyelocytes # 1.0 Nucleated RBCs 3 H Smudge Cells PRESENT Platelet Estimate SLIGHTLY DECREASED Large Platelets PRESENT Plt Morphology Comment NOTED RBC Morphology NOTED Polychromasia 2+ (3-5) Microcytosis 1+ (5-14) Macrocytosis 1+ (5-14) Ovalocytes 1+ (5-14) Sodium 139 Potassium 3.9 D Chloride 99 Carbon Dioxide 27 Anion Gap 17 BUN 29 H Creatinine 1.24 Estim Creat Clear Calc 45.5 Estimated GFR 56 Fasting Glucose 99 Calcium 8.3 L D Total Bilirubin 1.0 AST 12 ALT 8 Alkaline Phosphatase 73 Total Protein 5.6 L Albumin 3.0 L Preliminary micro results at discharge 02/18/22 10:45 Blood Culture - Preliminary Blood - Venous No growth after 48 hours. 02/18/22 10:09 Blood Culture - Preliminary Blood - Venous No growth after 48 hours. Discharge Plan Discharge Patient Disposition: Home, Self-Care Discharge Diagnosis: Cellulitis Referrals: Zeferino Cruz MD [Primary Care Provider] - 1 Week Discharge Medications: New colchicine [Colcrys] 0.6 mg Tablet 0.6 mg PO DAILY Qty: 1 0RF prednisone 10 mg tablet See Rx Instructions .Route .COMPLEX Qty: 45 0RF Rx Instructions: 10 mg orally; 5 tabs p.o. daily x3 days; 4 tabs p.o. daily x3 days; 3 tabs daily x3 days; 2 tabs daily x3 days; 1 tab daily x3 days doxycycline hyclate 100 mg tablet 100 mg PO BID 7 Days Qty: 14 0RF Continued hydroxyurea 500 mg capsule 1 cap PO DAILY 0RF torsemide 20 mg tablet 3 tab PO BID 0RF ascorbic acid (vitamin C) 500 mg tablet 1 tab PO DAILY 0RF tamsulosin 0.4 mg capsule 1 cap PO DAILY 0RF albuterol sulfate 90 mcg/actuation HFA aerosol inhaler 2 puff PO Q6H PRN (Reason: Wheezing) 0RF metoprolol tartrate 25 mg tablet 1.5 tab PO BID 0RF Eliquis 5 mg tablet 1 tab PO BID 0RF Breo Ellipta 100-25 mcg/dose blister with device 1 puff PO DAILY 0RF vitamin A-vitamin C-vit E-min Tablet 1 tab PO DAILY 0RF omega 9-uxb-swr-fish oil [Fish Oil] 1,200 (144-216) mg Capsule 1 cap PO DAILY 0RF Centrum Silver Men 300-600-300 mcg Tablet 1 tab PO DAILY 0RF calcium carb-mag ox-zinc sulf 333-133-5 mg Tablet 1 tab PO DAILY 0RF Rx Instructions: administer with a meal Discontinued allopurinol 300 mg tablet 1 tab PO DAILY 0RF Discharge Orders: Discharge Order (Routine); Ordered 02/20/22 Ordered By: Rush Byrd Diet: advance to usual diet Activity on Discharge: As tolerated Stand Alone Forms: Patient Portal Discharge page Care Plan Goals: Complete course of doxycycline 100 mg twice daily for 7 days; take 1 colchicine tomorrow Health Concerns: Complete course of prednisone. When pain free time 1 week restart allopurinol Plan of Treatment: Follow-up with PCP as scheduled Assessment: See discharge summary
--- NOTE | 2022-02-20 14:35 | MHC.CM.PN ---
PT WILL DC HOME TODAY NO SERVICES ORDERED FAMILY TO TRANSPORT
== END 2022-02-20 15:11 | disposition home or self-care (01) | DRG 603 ==
LOC: HO.ED 14:52 → HO.EDOVER 15:05 → HO.S3 02-19 05:53
PROVIDERS: Physician Assistant; Admitting Provider Hospitalist; Emergency Provider Emergency Medicine; PCP Internal Medicine; Visit Provider Hospitalist
DX: L03.115 Cellulitis of right lower limb (principal); C91.10 Chronic lymphocytic leukemia of B-cell type not having achieved remission; I48.20 Chronic atrial fibrillation, unspecified; I50.22 Chronic systolic (congestive) heart failure; M10.9 Gout, unspecified; Z20.822 Contact with and (suspected) exposure to COVID-19; Z87.891 Personal history of nicotine dependence; Z79.01 Long term (current) use of anticoagulants; Z79.899 Other long term (current) drug therapy
CPT/HCPCS: 36415; 71046; 80053; 83605; 83735; 83880; 84484; 85007; 85027; 85610; 85652; 86140; 87040; 87635; 93005; 96365; 96375; 99218; 99285; J0696; J1940

== ENCOUNTER 2022-10-25 18:26 | Emergency (ER) | payer MEDICARE, SELFPAY ==
--- NOTE | ~2022-10-25 | CT_ITS ---
EXAMINATION: CT head/brain wo IV con CLINICAL INFORMATION: Fall on Eliquis COMPARISON: CT head without contrast 12/10/2021 TECHNIQUE: Contiguous axial imaging was performed from the skull base to vertex without intravenous contrast. Sagittal and coronal reformatted images were obtained. This CT examination was performed using dose optimization techniques as appropriate, variously including the following: * Automated exposure control * Adjustment of mA and/or kV according to patient size (this includes techniques or standardized protocols for targeted exams where dose is matched to indication/reason for exam; i.e. extremities or head) Use of iterative reconstruction technique DLP: 682 mGy-cm FINDINGS: Evaluation of the skull base and adjacent brain is somewhat limited due to motion artifact. No acute osseous or soft tissue abnormality. The mastoid air cells and visualized portions of the paranasal sinuses are well aerated. There is no evidence of acute intracranial hemorrhage or territorial infarction. No abnormal mass effect or midline shift is seen. [place] to white matter differentiation is well preserved. No extra-axial fluid collections are identified. No hydrocephalus. No significant volume loss. Patchy periventricular and deep white matter hypoattenuation is consistent with mild small vessel ischemic changes. CT/CT head/brain wo IV con IMPRESSION: No acute intracranial abnormality including hemorrhage, mass effect, hydrocephalus, or acute territorial edematous infarction.
--- NOTE | 2022-10-25 18:34 | ED_ITS ---
HPI - Fall General Chief Complaint: Fall Stated Complaint: FALL, LACERATIONS Time Seen by Provider: 10/25/22 18:30 Source: patient and EMS Mode of arrival: EMS Limitations: no limitations History of Present Illness HPI Narrative: PATIENT WITH HISTORY OF CLL ATRIAL FIBRILLATION ON ELIQUIS MOVED TO NEW ASSISTED LIVING PLACE ,WAS OUTSIDE TRYING TO WALK ON THE SIDEWALK TOOK A WRONG TURN AND ALMOST FELL THERE WAS BYSTANDER BROKE THE FALL PATIENT DID NOT FALL COMPLETELY NO INJURIES HAS SUPERFICIAL ABRASION TO RIGHT LOWER EXTREMITY PATIENT HAS SIGNIFICANT LEG EDEMA BILATERALLY Related Data Home Medications Medication Instructions Recorded Confirmed albuterol sulfate 90 mcg/actuation 2 puff PO Q6H PRN Wheezing 02/18/22 02/18/22 aerosol inhaler apixaban 5 mg tablet (Eliquis) 1 tab PO BID 02/18/22 02/18/22 ascorbic acid (vitamin C) 500 mg 1 tab PO DAILY 02/18/22 02/18/22 tablet calcium carbonate 333 mg-magnesium 1 tab PO DAILY 02/18/22 02/18/22 oxide 133 mg-zinc sulf 5 mg tablet fluticasone furoate 100 1 puff PO DAILY 02/18/22 02/18/22 mcg-vilanterol 25 mcg/dose inhalation powder (Breo Ellipta) hydroxyurea 500 mg capsule 1 cap PO DAILY 02/18/22 02/18/22 metoprolol tartrate 25 mg tablet 1.5 tab PO BID 02/18/22 02/18/22 nilwaaqx-kst-yyxjf acid 300 1 tab PO DAILY 02/18/22 02/18/22 mcg-lycopene 600 mcg-lutein 300 mcg tablet (Centrum Silver Men) omega 1-ovj-toe-fish oil 1,200 mg 1 cap PO DAILY 02/18/22 02/18/22 (144 mg-216 mg) capsule (Fish Oil) tamsulosin 0.4 mg capsule 1 cap PO DAILY 02/18/22 02/18/22 torsemide 20 mg tablet 3 tab PO BID 02/18/22 02/18/22 vitamin A-vitamin C-vit E-min 1 tab PO DAILY 02/18/22 02/18/22 tablet Previous Rx's Medication Instructions Recorded colchicine 0.6 mg tablet (Colcrys) 0.6 mg PO DAILY #1 tab 02/20/22 doxycycline hyclate 100 mg tablet 100 mg PO BID 7 days #14 tabs 02/20/22 prednisone 10 mg tablet See Rx Instructions .Route 02/20/22 .COMPLEX #45 tabs Allergies Allergy/AdvReac Type Severity Reaction Status Date / Time No Known Allergies Allergy Verified 02/18/22 10:19 Review of Systems Review of Systems: Yes all other systems are reviewed and are negative FOR[facility]LY [facility] Past Medical History Medical History Afib CHF (congestive heart failure) Gout Social History Social History Household Members: Children Housing: [facility] Do you presently have visiting nurse or other home services: Yes ([facility] comes every other month) Alcohol intake: never Patient Tobacco Use Status: Former Tobacco user Tobacco use type: Cigarette, Cigar and Pipe Smoked in Last 30 Days: No e-Cigarette/Vaping Use: Never Used Second Hand Smoke Exposure: No Use of substances other than those prescribed or required for medical reasons: No Advance Directives: Yes Advance Directives on File: Yes Advance Directives Date on File: 02/19/22 service: Yes Current occupational status: retired Physical Exam Vital Signs: Vital Signs: Last Vital Signs Temp 97.6 F 10/25/22 23:43 Pulse 93 10/25/22 23:43 Resp 21 H 10/25/22 23:43 BP 105/51 L 10/25/22 23:43 Pulse Ox 93 10/25/22 23:43 O2 Del Method 10/25/22 23:43 BMI result Body Mass Index 20.0 Appearance: Alert. Oriented X3. No acute distress. Eyes: PERRLA, No Nystagmus ENT: Pharynx normal. Oral Mucosa moist Neck: Normal inspection. Neck supple. CVS: Normal heart rate and rhythm. Pulses normal. Respiratory: No respiratory distress. Equal air entry bilateral, no wheezing/rales/rhonchi Abdomen: Soft and nontender. Bowel sounds are present, +++ splenomegaly, no CVA tenderness Skin: Skin warm and dry. Normal skin color. Normal skin turgor. Extremities: 4+ lower extremity edema. No calf tenderness similar abrasion los ing some serous fluid in her right leg Neuro: Oriented X 3. No motor deficit. No sensory deficit.No cerebellar signs , cranial nerves II-XII intact Medical Decision Making Medical Decision Making MDM Narrative: Patient status post mechanical fall head CT negative for acute patient is at baseline will discharge patient back to custodial Lab Data MDM Lab Attestation statement: I reviewed the patient's lab results. Result Diagrams: 10/25/22 19:02 10/25/22 19:02 Labs: Lab Results 10/25/22 10/25/22 10/25/22 Range/Units 19:02 19:02 19:02 WBC 44.5 H* (4.8-10.8) X10*3/uL RBC 3.24 L (4.60-5.80) X10*6/uL Hgb 8.2 L (14.0-18.0) g/dl Hct 27.9 L (42.0-52.0) % MCV 86.1 (80.0-98.0) fL MCH 25.3 L (27.0-33.0) pg MCHC 29.4 L (31.0-36.0) g/dl RDW 20.5 H (11.0-16.0) % Plt Count 126 L D (160-400) X10*3/uL MPV 10.5 (9.4-12.4) fL Immature Gran % (Auto) Cancelled Neut % (Auto) Cancelled Lymph % (Auto) Cancelled [place] % (Auto) Cancelled Eos % (Auto) Cancelled Baso % (Auto) Cancelled Lymph # (Auto) Cancelled [place] # (Auto) Cancelled Eos # (Auto) Cancelled Baso # (Auto) Cancelled Abs Immat Gran (auto) Cancelled Absolute Neuts (auto) Cancelled Absolute Nucleated RBC 0.770 H (0.0-0.012) X10*3/uL Nucleated RBC % (auto) 1.7 H (0.0-0.2) /100WBC Neutrophils % (Manual) 70 (45-73) % Band Neutrophils % 8 H (3-5) % Lymphocytes % (Manual) 3 L (20-40) % Monocytes % (Manual) 2 (2-11) % Eosinophils % (Manual) 3 (0-4) % Basophils % (Manual) 4 H (0-2) % Metamyelocytes % 2 % Myelocytes % 5 % Promyelocytes % 3 % Abs Neuts (Manual) 34.7 H (2.0-8.3) X10*3/uL Lymphocytes # (Manual) 1.3 (1.2-4.9) X10*3/uL Monocytes # (Manual) 0.9 (0.1-1.2) X10*3/uL Eosinophils # (Manual) 1.3 H (0.0-0.4) X10*3/uL Basophils # (Manual) 1.8 H (0.0-0.2) X10*3/uL Metamyelocytes # 0.9 X10*3/uL Myelocytes # 2.2 X10*/uL Promyelocytes # 1.3 X10*3/uL Platelet Estimate SLIGHTLY DECREASED (NORMAL) Plt Morphology Comment NORMAL RBC Morphology NOTED Polychromasia 1+ (0-2) /OIF Hypochromasia 1+ (5-14) /OIF Basophilic Stippling 1+ (0-2) /OIF Microcytosis 1+ (5-14) /OIF Macrocytosis 1+ (5-14) /OIF Ovalocytes 1+ (5-14) /OIF PT 20.5 H (10.0-13.1) SEC INR 1.7 H (0.9-1.1) Sodium 144 (135-145) mmol/L Potassium 5.0 D (3.3-5.1) mmol/L Chloride 107 (96-108) mmol/L Carbon Dioxide 29 (22-29) mmol/L Anion Gap 13 (12-20) BUN 45 H (9-16) mg/dL Creatinine 1.63 H (0.5-1.4) mg/dL Estim Creat Clear Calc 25.5 Estimated GFR 40 Random Glucose 128 H (60-115) mg/dL Calcium 8.4 (8.4-10.2) mg/dL Magnesium 2.8 H (1.6-2.6) mg/dL Total Bilirubin 1.5 H (0.0-1.0) mg/dL AST 7 (5-37) U/L ALT 6 (0-40) U/L Alkaline Phosphatase 104 (39-117) U/L B-Natriuretic Peptide (<100) pg/mL Total Protein 5.8 L (6.5-8.0) g/dL Albumin 3.5 (3.5-5.0) g/dL 10/25/ Range/Units 19:02 WBC (4.8-10.8) X10*3/uL RBC (4.60-5.80) X10*6/uL Hgb (14.0-18.0) g/dl Hct (42.0-52.0) % MCV (80.0-98.0) fL MCH (27.0-33.0) pg MCHC (31.0-36.0) g/dl RDW (11.0-16.0) % Plt Count (160-400) X10*3/uL MPV (9.4-12.4) fL Immature Gran % (Auto) Neut % (Auto) Lymph % (Auto) [place] % (Auto) Eos % (Auto) Baso % (Auto) Lymph # (Auto) [place] # (Auto) Eos # (Auto) Baso # (Auto) Abs Immat Gran (auto) Absolute Neuts (auto) Absolute Nucleated RBC (0.0-0.012) X10*3/uL Nucleated RBC % (auto) (0.0-0.2) /100WBC Neutrophils % (Manual) (45-73) % Band Neutrophils % (3-5) % Lymphocytes % (Manual) (20-40) % Monocytes % (Manual) (2-11) % Eosinophils % (Manual) (0-4) % Basophils % (Manual) (0-2) % Metamyelocytes % % Myelocytes % % Promyelocytes % % Abs Neuts (Manual) (2.0-8.3) X10*3/uL Lymphocytes # (Manual) (1.2-4.9) X10*3/uL Monocytes # (Manual) (0.1-1.2) X10*3/uL Eosinophils # (Manual) (0.0-0.4) X10*3/uL Basophils # (Manual) (0.0-0.2) X10*3/uL Metamyelocytes # X10*3/uL Myelocytes # X10*/uL Promyelocytes # X10*3/uL Platelet Estimate (NORMAL) Plt Morphology Comment RBC Morphology Polychromasia /OIF Hypochromasia /OIF Basophilic Stippling /OIF Microcytosis /OIF Macrocytosis /OIF Ovalocytes /OIF PT (10.0-13.1) SEC INR (0.9-1.1) Sodium (135-145) mmol/L Potassium (3.3-5.1) mmol/L Chloride (96-108) mmol/L Carbon Dioxide (22-29) mmol/L Anion Gap (12-20) BUN (9-16) mg/dL Creatinine (0.5-1.4) mg/dL Estim Creat Clear Calc Estimated GFR Random Glucose (60-115) mg/dL Calcium (8.4-10.2) mg/dL Magnesium (1.6-2.6) mg/dL Total Bilirubin (0.0-1.0) mg/dL AST (5-37) U/L ALT (0-40) U/L Alkaline Phosphatase (39-117) U/L B-Natriuretic Peptide 555 H (<100) pg/mL Total Protein (6.5-8.0) g/dL Albumin (3.5-5.0) g/dL Discharge Plan Discharge Clinical Impression: CLL (chronic lymphocytic leukemia), Fall Patient Disposition: Home, Self-Care Instructions: Fall Prevention for Older Adults (ED) Additional Instructions: Care and cautions as advised Prescriptions: No Action hydroxyurea 500 mg capsule 1 cap PO DAILY torsemide 20 mg tablet 3 tab PO BID ascorbic acid (vitamin C) 500 mg tablet 1 tab PO DAILY tamsulosin 0.4 mg capsule 1 cap PO DAILY albuterol sulfate 90 mcg/actuation HFA aerosol inhaler 2 puff PO Q6H PRN (Reason: Wheezing) metoprolol tartrate 25 mg tablet 1.5 tab PO BID Eliquis 5 mg tablet 1 tab PO BID Breo Ellipta 100-25 mcg/dose blister with device 1 puff PO DAILY vitamin A-vitamin C-vit E-min Tablet 1 tab PO DAILY omega 7-mwp-tsn-fish oil [Fish Oil] 1,200 (144-216) mg Capsule 1 cap PO DAILY Centrum Silver Men 300-600-300 mcg Tablet 1 tab PO DAILY calcium carb-mag ox-zinc sulf 333-133-5 mg Tablet 1 tab PO DAILY Rx Instructions: administer with a meal colchicine [Colcrys] 0.6 mg Tablet 0.6 mg PO DAILY Qty: 1 0RF prednisone 10 mg tablet See Rx Instructions .Route .COMPLEX Qty: 45 0RF Rx Instructions: 10 mg orally; 5 tabs p.o. daily x3 days; 4 tabs p.o. daily x3 days; 3 tabs daily x3 days; 2 tabs daily x3 days; 1 tab daily x3 days doxycycline hyclate 100 mg tablet 100 mg PO BID 7 Days Qty: 14 0RF
--- NOTE | 2022-10-25 18:35 | ECG_ITS ---
Test Reason : A-FIB Blood Pressure : / mmHG Vent. Rate : 102 BPM Atrial Rate : 000 BPM P-R Int : 000 ms QRS Dur : 082 ms QT Int : 312 ms P-R-T Axes : 000 015 079 degrees QTc Int : 406 ms Atrial fibrillation with rapid ventricular response with premature ventricular or aberrantly conducted complexes Nonspecific T wave abnormality Abnormal ECG When compared with ECG of 18-FEB-2022 11:40, Nonspecific T wave abnormality now evident in Lateral leads Referred By: Preet Ayala Electronically Signed By:AIMEE BRENNAN
[2022-10-25 18:40] VITALS: BP 130/58; PULSE 78
[2022-10-25 18:48] VITALS: BP 106/52; PULSE 114; RESP 18; TEMP 36.6; O2SAT 95
[2022-10-25 19:08] LABS: Hematocrit 27.9 % (42.0-52.0); Hemoglobin 8.2 g/dl (14.0-18.0); Mean Corpuscular HGB Conc 29.4 g/dl (31.0-36.0)
[2022-10-25 19:10] LABS: Mean Corpuscular Hemoglobin 25.3 pg (27.0-33.0); Mean Corpuscular Volume 86.1 fL (80.0-98.0); Mean Platelet Volume 10.5 fL (9.4-12.4); Platelet Count 126 X10*3/uL (160-400); Red Blood Count 3.24 X10*6/uL (4.60-5.80); Red Cell Distribution Width 20.5 % (11.0-16.0)
[2022-10-25 19:13] LABS: INTERNATIONAL NORM RATIO 1.7 (0.9-1.1); Prothrombin Time 20.5 SEC (10.0-13.1)
[2022-10-25 19:27] LABS: NRBC Pct Auto 1.7 /100WBC (0.0-0.2); PLT ABN DIST 1
[2022-10-25 19:28] LABS: B Type Natriuretic Peptide 555 pg/mL (<100)
[2022-10-25 19:29] LABS: White Blood Count 44.5 X10*3/uL (4.8-10.8)
[2022-10-25 19:30] LABS: Alanine Aminotransferase 6 U/L (0-40); Albumin Level 3.5 g/dL (3.5-5.0); Alkaline Phosphatase 104 U/L (39-117); Anion Gap 13 (12-20); Aspartate Amino Transferase 7 U/L (5-37); Bilirubin Total 1.5 mg/dL (0.0-1.0); Blood Urea Nitrogen 45 mg/dL (9-16); Calcium 8.4 mg/dL (8.4-10.2); Carbon Dioxide 29 mmol/L (22-29); Chloride 107 mmol/L (96-108); Creatinine Clr Calc Pharmacy 25.5; Estimated Glomerular Filt Rate 40; Glucose Random 128 mg/dL (60-115); Magnesium 2.8 mg/dL (1.6-2.6); Sodium 144 mmol/L (135-145); Total Protein 5.8 g/dL (6.5-8.0)
[2022-10-25 19:45] LABS: Band Neutrophils Percent 8 % (3-5); Basophils Abs Manual 1.8 X10*3/uL (0.0-0.2); Basophils Percent Manual 4 % (0-2); Eosinophils Absolute Manual 1.3 X10*3/uL (0.0-0.4); Eosinophils Percent Manual 3 % (0-4); Lymphocytes Absolute Manual 1.3 X10*3/uL (1.2-4.9); Lymphocytes Percent Manual 3 % (20-40); Macrocytosis 1+ (5-14) /OIF; Metamyelocytes Absolute 0.9 X10*3/uL; Metamyelocytes Percent 2 %; Microcytosis 1+ (5-14) /OIF; Monocytes Absolute Manual 0.9 X10*3/uL (0.1-1.2); Monocytes Percent Manual 2 % (2-11); Myelocytes Absolute 2.2 X10*/uL; Myelocytes Percent 5 %; Neutrophils Absolute Manual 34.7 X10*3/uL (2.0-8.3); Neutrophils Percent Manual 70 % (45-73); Platelet Estimate SLIGHTLY DECREASED (NORMAL); Platelet Morphology Comment NORMAL; Promyelocytes Absolute 1.3 X10*3/uL; Promyelocytes Percent 3 %; RBC Morphology NOTED
[2022-10-25 19:46] LABS: Basophilic Stippling 1+ (0-2) /OIF; Hypochromasia 1+ (5-14) /OIF; Ovalocytes 1+ (5-14) /OIF; Polychromasia 1+ (0-2) /OIF
--- NOTE | 2022-10-25 21:20 | PC.NURSE ---
PT A&Ox3, ELIM IRA, denies any pain. Resting quietly. No apparent distress. Visitor at bedside.
[2022-10-25 22:08] VITALS: BP 95/50; PULSE 79; RESP 15; TEMP 36.4; O2SAT 92
[2022-10-25 23:43] VITALS: BP 105/51; PULSE 93; RESP 21; TEMP 36.4; O2SAT 93
--- NOTE | 2022-10-25 23:45 | MHC.EDTECH ---
Pt soiled with urine. Pt given 1x assistance with shady care. Bed linen and gown changed. Pt personal belongings placed in belongings bag and placed bedside. Pt given urinal for future use. Pt given warm blanket and call wade placed in reach
[2022-10-26 01:57] VITALS: BP 108/45; PULSE 104; RESP 18; TEMP 36.6; O2SAT 92
--- NOTE | 2022-10-26 04:11 | PC.NURSE ---
PT resting quietly. Denies any pain. Awaiting ambulance transport to facility.
[2022-10-26 05:17] VITALS: BP 110/60; PULSE 115; RESP 12; TEMP 36.5; O2SAT 92
--- NOTE | 2022-10-26 05:42 | MHC.EDTECH ---
Callout to [facility] @[phone] to book ambulance back to SNF
== END 2022-10-26 06:16 | disposition home or self-care (01) ==
PROVIDERS: Emergency Provider Internal Medicine; PCP Internal Medicine
DX: S00.93XA Contusion of unspecified part of head, initial encounter (principal); C91.10 Chronic lymphocytic leukemia of B-cell type not having achieved remission; R51.9 Headache, unspecified; M54.2 Cervicalgia; M54.50 Low back pain, unspecified; R06.02 Shortness of breath; W01.10XA Fall on same level from slipping, tripping and stumbling with subsequent striking against unspecified object, initial encounter; Y93.9 Activity, unspecified; Y92.480 Sidewalk as the place of occurrence of the external cause; Y99.9 Unspecified external cause status; Z79.899 Other long term (current) drug therapy
CPT/HCPCS: 36415; 70450; 80053; 83735; 83880; 85007; 85027; 85610; 93005; 99284; 99285

== ENCOUNTER 2022-10-31 13:35 | Inpatient (IN) | payer MEDICARE, SELFPAY ==
--- NOTE | ~2022-10-31 | US_ITS ---
EXAMINATION: US VENOUS ULTRASOUND WITH DOPPLER LOWER EXTREMITY, BILATERAL CLINICAL INFORMATION: Lower extremity swelling COMPARISON: None TECHNIQUE: Ultrasound of the deep veins is performed from the hip to the calf with compression sonography and color and pulse Doppler assessment. Spectral analysis with color-flow imaging is performed. FINDINGS: RIGHT: There is normal venous compression and respiratory variation and augmented flow. The visualized common femoral vein, superficial femoral vein, profunda femoral vein, popliteal vein, and the trifurcation region shows no evidence of deep venous thrombosis. There is no significant popliteal fossa cyst. Diffuse subcutaneous edema seen throughout the right lower extremity LEFT: There is normal venous compression and respiratory variation and augmented flow. The visualized common femoral vein, superficial femoral vein, profunda femoral vein, popliteal vein, and the trifurcation region shows no evidence of deep venous thrombosis. There is no significant popliteal fossa cyst. Diffuse subcutaneous edema seen throughout the left lower extremity If the patient's symptoms persist, followup ultrasound in 5 days 7 days might be of value to exclude proximal propagation from a non-visualized calf vein. US/US venous duplex LE BI IMPRESSION: No DVT demonstrated in the bilateral lower extremity.
--- NOTE | ~2022-10-31 | XR_ITS ---
EXAMINATION: XR CHEST CLINICAL INFORMATION: Shortness of breath COMPARISON: 02/18/2022 TECHNIQUE: 2 views of the chest were obtained. FINDINGS: Moderate left pleural effusion and left base consolidation, overall similar to the prior study. Normal pulmonary vascularity. Right lung and pleural spaces are clear. Diffuse osseous sclerosis consistent with osseous metastatic disease again seen. XR/XR chest 2V IMPRESSION: Persistent moderate left pleural effusion associated left base consolidation, at least in part compressive atelectasis. Diffuse sclerotic metastatic disease.
--- NOTE | ~2022-10-31 | XR_ITS ---
EXAMINATION: XR CHEST CLINICAL INFORMATION: Dyspnea. Hypoxia. COMPARISON: 10/31/2022 TECHNIQUE: 2 views of the chest were obtained. FINDINGS: The lungs are well expanded. Moderate left pleural effusion, similar to prior.. Hazy opacities at both lung bases. This is increased from prior. No pneumothorax. The cardiomediastinal silhouette is unchanged, with a calcified aorta. Diffuse sclerotic appearance of the osseous structures again noted. XR/XR chest 2V IMPRESSION: Persistent moderate left pleural effusion. Worsening hazy bilateral opacities.
--- NOTE | 2022-10-31 14:02 | ECG_ITS ---
Test Reason : sob Blood Pressure : / mmHG Vent. Rate : 091 BPM Atrial Rate : 000 BPM P-R Int : 000 ms QRS Dur : 084 ms QT Int : 372 ms P-R-T Axes : 000 024 040 degrees QTc Int : 457 ms Atrial fibrillation with premature ventricular or aberrantly conducted complexes Low voltage QRS Abnormal ECG When compared with ECG of 25-OCT-2022 18:49, No significant change was found Referred By: Baltazar Bustamante Electronically Signed By:Binu Bates
[2022-10-31 14:06] VITALS: BP 96/55; BP 97/45; PULSE 79; PULSE 88; RESP 20; TEMP 36.4; O2SAT 94; O2SAT 96; BMI 26.0
--- NOTE | 2022-10-31 14:06 | ED.GENADULT ---
HPI - General Adult General Chief complaint: Dyspnea Stated complaint: SOB Time Seen by Provider: 10/31/22 13:50 Source: patient, EMS and old records reviewed History of Present Illness HPI narrative: Patient brought in by ambulance from [facility], when visiting nurse found patient to be short of breath with minimal exertion as well as having several areas of erythema and increased warmth concerning for infection. Patient has a history of CLL and chronic edema. He states his swelling in his legs seems to be worse over the past 2 weeks. Daily weights are unknown. He has several areas of redness, largest area on his left mayo. But area on his left wrist and right forearm as well which he states are all new. He is a chronic wound on his left forearm which he says is unchanged. He denies chest pain. No precipitating factors of which he is aware Related Data Home Medications Medication Instructions Recorded Confirmed albuterol sulfate 90 mcg/actuation 2 puff PO Q6H PRN Wheezing 02/18/22 02/18/22 aerosol inhaler apixaban 5 mg tablet (Eliquis) 1 tab PO BID 02/18/22 02/18/22 ascorbic acid (vitamin C) 500 mg 1 tab PO DAILY 02/18/22 02/18/22 tablet calcium carbonate 333 mg-magnesium 1 tab PO DAILY 02/18/22 02/18/22 oxide 133 mg-zinc sulf 5 mg tablet fluticasone furoate 100 1 puff PO DAILY 02/18/22 02/18/22 mcg-vilanterol 25 mcg/dose inhalation powder (Breo Ellipta) hydroxyurea 500 mg capsule 1 cap PO DAILY 02/18/22 02/18/22 metoprolol tartrate 25 mg tablet 1.5 tab PO BID 02/18/22 02/18/22 kqozlrha-pxw-xfbtu acid 300 1 tab PO DAILY 02/18/22 02/18/22 mcg-lycopene 600 mcg-lutein 300 mcg tablet (Centrum Silver Men) omega 4-brr-ink-fish oil 1,200 mg 1 cap PO DAILY 02/18/22 02/18/22 (144 mg-216 mg) capsule (Fish Oil) tamsulosin 0.4 mg capsule 1 cap PO DAILY 02/18/22 02/18/22 torsemide 20 mg tablet 3 tab PO BID 02/18/22 02/18/22 vitamin A-vitamin C-vit E-min 1 tab PO DAILY 02/18/22 02/18/22 tablet Previous Rx's Medication Instructions Recorded colchicine 0.6 mg tablet (Colcrys) 0.6 mg PO DAILY #1 tab 02/20/22 doxycycline hyclate 100 mg tablet 100 mg PO BID 7 days #14 tabs 02/20/22 prednisone 10 mg tablet See Rx Instructions .Route 02/20/22 .COMPLEX #45 tabs Allergies Allergy/AdvReac Type Severity Reaction Status Date / Time No Known Allergies Allergy Verified 02/18/22 10:19 Review of Systems Constitutional: Comments: General malaise. No fevers or chills Cardiovascular: Comments: No chest pain. Positive bilateral pedal edema, 4+ weeping Respiratory: Comments: Dyspnea especially with exertion. No cough or phlegm Gastrointestinal: Comments: No nausea vomiting diarrhea or constipation Musculoskeletal: Comments: Bilateral pedal edema as mentioned Integumentary/Breasts: Comments: Several areas redness and oozing as mentioned see HPI and physical exam Neurologic: Comments: Neurologically nonfocal Hematologic/Lymphatic: Comments: History of CLL [facility] Past Medical History Medical History Afib CHF (congestive heart failure) Gout Social History Social History Household Members: Children [facility] Do you presently have visiting nurse or other home services: Yes ([facility] comes every other month) Alcohol intake: never Patient Tobacco Use Status: Former Tobacco user Tobacco use type: Cigarette, Cigar and Pipe e-Cigarette/Vaping Use: Never Used Second Hand Smoke Exposure: No Advance Directives: Yes Advance Directives on File: Yes Advance Directives Date on File: 02/19/22 service: Yes Current occupational status: retired Physical Exam ED Vital Signs: Vital Signs - 24 hr 10/31/22 14:06 Temperature 97.6 F Pulse Rate 88 Respiratory Rate 20 Blood Pressure 97/45 L Pulse Oximetry 94 Oxygen Delivery Method Room Air BMI result Body Mass Index 26.0 Const Other: Awake and alert in no acute distress Resp Other: Fair entry. Bibasilar rales. Cardio Other: Regular rate and rhythm. Positive systolic murmur. GI Other: Soft nontender nondistended Skin Other: Erythema with increased warmth over left mayo approximately 5 x 15 cm area. Some oozing in the middle. No fluctuant areas noted. Left proximal wrist lateral area with small area of erythema and wheezing. Right mid forearm with area of erythema and mild purulent drainage without abscess. Neuro Other: Nonfocal neuro exam Extrem Other: 4+ pitting and losing edema bilaterally. Course Course Course Narrative: With patient with extensive edema and several areas of cellulitis. He is immunocompromised secondary to CLL. His white count is 45.1. This is consistent with baseline. He is anemic with a hemoglobin of 7.4. His last hemoglobin a week ago was 8.2. Prior to that it was 8.8. No evidence of acute bleeding however chemistries are still pending but lactic acid is 1.3. 15:57. Creatinine is 1.78 which is similar to his prior result of 1.63. Calcium is low at 8.0. Total bilirubin is mildly elevated at 1.9. Albumin is 3.3. Will hospitalize for further treatment of cellulitis in the setting of immunocompromise with severe lymphedema Medical Decision Making Medical Decision Making MDM Narrative: With patient with extensive edema and several areas of cellulitis. He is also having dyspnea on exertion which may also be fluid overload related. Is immunocompromised. His blood pressure is soft at 97/45. Will treat with antibiotics, broad-spectrum as he is at high risk for infectious related consequences including sepsis. He needs diuresis but his blood pressure is on the lower side. Will try gentle Lasix IV push. I would hold off on IV fluid secondary to his extensive 3rd spacing Lab Data Result Diagrams: 10/31/22 14:55 10/31/22 14:55 Labs: Lab Results 10/31/22 10/31/22 10/31/22 Range/Units 14:48 14:48 14:55 WBC 45.1 H* (4.8-10.8) X10*3/uL RBC 2.97 L (4.60-5.80) X10*6/uL Hgb 7.4 L (14.0-18.0) g/dl Hct 25.4 L (42.0-52.0) % MCV 85.5 (80.0-98.0) fL MCH 24.9 L (27.0-33.0) pg MCHC 29.1 L (31.0-36.0) g/dl RDW 20.2 H (11.0-16.0) % Plt Count 108 L (160-400) X10*3/uL MPV 9.7 (9.4-12.4) fL Immature Gran % (Auto) Cancelled Neut % (Auto) Cancelled Lymph % (Auto) Cancelled Jerauld % (Auto) Cancelled Eos % (Auto) Cancelled Baso % (Auto) Cancelled Lymph # (Auto) Cancelled Jerauld # (Auto) Cancelled Eos # (Auto) Cancelled Baso # (Auto) Cancelled Abs Immat Gran (auto) Cancelled Absolute Neuts (auto) Cancelled Absolute Nucleated RBC 0.760 H (0.0-0.012) X10*3/uL Nucleated RBC % (auto) 1.7 H (0.0-0.2) /100WBC Neutrophils % (Manual) 84 H (45-73) % Band Neutrophils % 8 H (3-5) % Lymphocytes % (Manual) 2 L (20-40) % Atypical Lymphs % (Man) 1 (0-6) % Eosinophils % (Manual) 1 (0-4) % Basophils % (Manual) 2 (0-2) % Metamyelocytes % 1 % Myelocytes % 1 % Abs Neuts (Manual) 41.5 H (2.0-8.3) X10*3/uL Lymphocytes # (Manual) 0.9 L (1.2-4.9) X10*3/uL Atyp Lymphs # (Manual) 0.5 x10*3/uL Eosinophils # (Manual) 0.5 H (0.0-0.4) X10*3/uL Basophils # (Manual) 0.9 H (0.0-0.2) X10*3/uL Metamyelocytes # 0.5 X10*3/uL Myelocytes # 0.5 X10*/uL Nucleated RBCs 2 H (0-0) /100WBC Platelet Estimate DECREASED (NORMAL) Plt Morphology Comment NORMAL RBC Morphology NOTED Tear Drop Cells 1+ (0-2) /OIF Ovalocytes 1+ (5-14) /OIF PT (10.0-13.1) SEC INR (0.9-1.1) Sodium (135-145) mmol/L Potassium (3.3-5.1) mmol/L Chloride (96-108) mmol/L Carbon Dioxide (22-29) mmol/L Anion Gap (12-20) BUN (9-16) mg/dL Creatinine (0.5-1.4) mg/dL Estim Creat Clear Calc Estimated GFR Random Glucose (60-115) mg/dL Lactic Acid (0.5-2.0) mmol/L Calcium (8.4-10.2) mg/dL Total Bilirubin (0.0-1.0) mg/dL AST (5-37) U/L ALT (0-40) U/L Alkaline Phosphatase (39-117) U/L Troponin I High Sens (<3.5-35.0) ng/L Total Protein (6.5-8.0) g/dL Albumin (3.5-5.0) g/dL Urine Color Yellow Urine Appearance Turbid Urine pH 6.0 (5.0-9.0) Ur Specific Wortham 1.010 (1.005-1.025) Urine Protein 30 (1+) H (Neg-Trace) mg/dL Urine Glucose (UA) Negative (Negative) mg/dL Urine Ketones Negative (Negative) mg/dL Urine Blood Small (1+) H (Negative) Urine Nitrite Negative (Negative) Ur Leukocyte Esterase Large (3+) H (Negative) Urine RBC 11-20 H (0-2) /HPF Urine WBC >50 H (0-5) /HPF Ur Squamous Epith Cells 0-2 (0-2) /HPF Urine Bacteria Trace (None Seen) Hyaline Casts 3-5 (0-2) /LPF Influenza Type A (PCR) NEGATIVE (Negative) Influenza Type B (PCR) NEGATIVE (Negative) RSV RNA Qual (PCR) NEGATIVE (Negative) SARS-CoV-2 RNA (RT-PCR) NEGATIVE (Negative) 10/31/22 10/31/22 10/31/22 Range/Units 14:55 14:55 14:55 WBC (4.8-10.8) X10*3/uL RBC (4.60-5.80) X10*6/uL Hgb (14.0-18.0) g/dl Hct (42.0-52.0) % MCV (80.0-98.0) fL MCH (27.0-33.0) pg MCHC (31.0-36.0) g/dl RDW (11.0-16.0) % Plt Count (160-400) X10*3/uL MPV (9.4-12.4) fL Immature Gran % (Auto) Neut % (Auto) Lymph % (Auto) Jerauld % (Auto) Eos % (Auto) Baso % (Auto) Lymph # (Auto) Jerauld # (Auto) Eos # (Auto) Baso # (Auto) Abs Immat Gran (auto) Absolute Neuts (auto) Absolute Nucleated RBC (0.0-0.012) X10*3/uL Nucleated RBC % (auto) (0.0-0.2) /100WBC Neutrophils % (Manual) (45-73) % Band Neutrophils % (3-5) % Lymphocytes % (Manual) (20-40) % Atypical Lymphs % (Man) (0-6) % Eosinophils % (Manual) (0-4) % Basophils % (Manual) (0-2) % Metamyelocytes % % Myelocytes % % Abs Neuts (Manual) (2.0-8.3) X10*3/uL Lymphocytes # (Manual) (1.2-4.9) X10*3/uL Atyp Lymphs # (Manual) x10*3/uL Eosinophils # (Manual) (0.0-0.4) X10*3/uL Basophils # (Manual) (0.0-0.2) X10*3/uL Metamyelocytes # X10*3/uL Myelocytes # X10*/uL Nucleated RBCs (0-0) /100WBC Platelet Estimate (NORMAL) Plt Morphology Comment RBC Morphology Tear Drop Cells /OIF Ovalocytes /OIF PT (10.0-13.1) SEC INR (0.9-1.1) Sodium 139 (135-145) mmol/L Potassium 5.0 (3.3-5.1) mmol/L Chloride 104 (96-108) mmol/L Carbon Dioxide 27 (22-29) mmol/L Anion Gap 13 (12-20) BUN 48 H (9-16) mg/dL Creatinine 1.78 H (0.5-1.4) mg/dL Estim Creat Clear Calc 31.3 Estimated GFR 37 Random Glucose 76 (60-115) mg/dL Lactic Acid 1.3 (0.5-2.0) mmol/L Calcium 8.0 L (8.4-10.2) mg/dL Total Bilirubin 1.9 H (0.0-1.0) mg/dL AST 6 (5-37) U/L ALT < 6 (0-40) U/L Alkaline Phosphatase 96 (39-117) U/L Troponin I High Sens 3.9 (<3.5-35.0) ng/L Total Protein 5.5 L (6.5-8.0) g/dL Albumin 3.3 L (3.5-5.0) g/dL Urine Color Urine Appearance Urine pH (5.0-9.0) Ur Specific Wortham (1.005-1.025) Urine Protein (Neg-Trace) mg/dL Urine Glucose (UA) (Negative) mg/dL Urine Ketones (Negative) mg/dL Urine Blood (Negative) Urine Nitrite (Negative) Ur Leukocyte Esterase (Negative) Urine RBC (0-2) /HPF Urine WBC (0-5) /HPF Ur Squamous Epith Cells (0-2) /HPF Urine Bacteria (None Seen) Hyaline Casts (0-2) /LPF Influenza Type A (PCR) (Negative) Influenza Type B (PCR) (Negative) RSV RNA Qual (PCR) (Negative) SARS-CoV-2 RNA (RT-PCR) (Negative) 10/31/22 Range/Units 14:55 WBC (4.8-10.8) X10*3/uL RBC (4.60-5.80) X10*6/uL Hgb (14.0-18.0) g/dl Hct (42.0-52.0) % MCV (80.0-98.0) fL MCH (27.0-33.0) pg MCHC (31.0-36.0) g/dl RDW (11.0-16.0) % Plt Count (160-400) X10*3/uL MPV (9.4-12.4) fL Immature Gran % (Auto) Neut % (Auto) Lymph % (Auto) Jerauld % (Auto) Eos % (Auto) Baso % (Auto) Lymph # (Auto) Jerauld # (Auto) Eos # (Auto) Baso # (Auto) Abs Immat Gran (auto) Absolute Neuts (auto) Absolute Nucleated RBC (0.0-0.012) X10*3/uL Nucleated RBC % (auto) (0.0-0.2) /100WBC Neutrophils % (Manual) (45-73) % Band Neutrophils % (3-5) % Lymphocytes % (Manual) (20-40) % Atypical Lymphs % (Man) (0-6) % Eosinophils % (Manual) (0-4) % Basophils % (Manual) (0-2) % Metamyelocytes % % Myelocytes % % Abs Neuts (Manual) (2.0-8.3) X10*3/uL Lymphocytes # (Manual) (1.2-4.9) X10*3/uL Atyp Lymphs # (Manual) x10*3/uL Eosinophils # (Manual) (0.0-0.4) X10*3/uL Basophils # (Manual) (0.0-0.2) X10*3/uL Metamyelocytes # X10*3/uL Myelocytes # X10*/uL Nucleated RBCs (0-0) /100WBC Platelet Estimate (NORMAL) Plt Morphology Comment RBC Morphology Tear Drop Cells /OIF Ovalocytes /OIF PT 26.7 H (10.0-13.1) SEC INR 2.2 H (0.9-1.1) Sodium (135-145) mmol/L Potassium (3.3-5.1) mmol/L Chloride (96-108) mmol/L Carbon Dioxide (22-29) mmol/L Anion Gap (12-20) BUN (9-16) mg/dL Creatinine (0.5-1.4) mg/dL Estim Creat Clear Calc Estimated GFR Random Glucose (60-115) mg/dL Lactic Acid (0.5-2.0) mmol/L Calcium (8.4-10.2) mg/dL Total Bilirubin (0.0-1.0) mg/dL AST (5-37) U/L ALT (0-40) U/L Alkaline Phosphatase (39-117) U/L Troponin I High Sens (<3.5-35.0) ng/L Total Protein (6.5-8.0) g/dL Albumin (3.5-5.0) g/dL Urine Color Urine Appearance Urine pH (5.0-9.0) Ur Specific Wortham (1.005-1.025) Urine Protein (Neg-Trace) mg/dL Urine Glucose (UA) (Negative) mg/dL Urine Ketones (Negative) mg/dL Urine Blood (Negative) Urine Nitrite (Negative) Ur Leukocyte Esterase (Negative) Urine RBC (0-2) /HPF Urine WBC (0-5) /HPF Ur Squamous Epith Cells (0-2) /HPF Urine Bacteria (None Seen) Hyaline Casts (0-2) /LPF Influenza Type A (PCR) (Negative) Influenza Type B (PCR) (Negative) RSV RNA Qual (PCR) (Negative) SARS-CoV-2 RNA (RT-PCR) (Negative) Discharge Plan Discharge Patient Disposition: Admitted As Inpatient Prescriptions: No Action hydroxyurea 500 mg capsule 1 cap PO DAILY torsemide 20 mg tablet 3 tab PO BID ascorbic acid (vitamin C) 500 mg tablet 1 tab PO DAILY tamsulosin 0.4 mg capsule 1 cap PO DAILY albuterol sulfate 90 mcg/actuation HFA aerosol inhaler 2 puff PO Q6H PRN (Reason: Wheezing) metoprolol tartrate 25 mg tablet 1.5 tab PO BID Eliquis 5 mg tablet 1 tab PO BID Breo Ellipta 100-25 mcg/dose blister with device 1 puff PO DAILY vitamin A-vitamin C-vit E-min Tablet 1 tab PO DAILY omega 9-yjr-vva-fish oil [Fish Oil] 1,200 (144-216) mg Capsule 1 cap PO DAILY Centrum Silver Men 300-600-300 mcg Tablet 1 tab PO DAILY calcium carb-mag ox-zinc sulf 333-133-5 mg Tablet 1 tab PO DAILY Rx Instructions: administer with a meal colchicine [Colcrys] 0.6 mg Tablet 0.6 mg PO DAILY Qty: 1 0RF prednisone 10 mg tablet See Rx Instructions .Route .COMPLEX Qty: 45 0RF Rx Instructions: 10 mg orally; 5 tabs p.o. daily x3 days; 4 tabs p.o. daily x3 days; 3 tabs daily x3 days; 2 tabs daily x3 days; 1 tab daily x3 days doxycycline hyclate 100 mg tablet 100 mg PO BID 7 Days Qty: 14 0RF
[2022-10-31 15:06] LABS: Appearance Urine Turbid; Color Urine Yellow; Glucose Urine UA Negative (Negative); Leukocyte Esterase Urine Large (3+) (Negative); Nitrite Urine Negative (Negative); UMIC TRIGGER UACC YES; Urine Blood Small (1+) (Negative); Urine Ketones Negative (Negative); Urine Protein 30 (1+) mg/dL (Neg-Trace)
[2022-10-31 15:07] LABS: Hemoglobin 7.4 g/dl (14.0-18.0); Mean Corpuscular Hemoglobin 24.9 pg (27.0-33.0); Red Blood Count 2.97 X10*6/uL (4.60-5.80)
[2022-10-31 15:08] LABS: Bacteria Urine Trace (None Seen); Squamous Epithelial Cell Urine 0-2 /HPF (0-2); UACC Culture Trigger YES; WBC Urine >50 /HPF (0-5)
[2022-10-31 15:09] LABS: Hematocrit 25.4 % (42.0-52.0); Mean Corpuscular HGB Conc 29.1 g/dl (31.0-36.0); Mean Corpuscular Volume 85.5 fL (80.0-98.0); Mean Platelet Volume 9.7 fL (9.4-12.4); Platelet Count 108 X10*3/uL (160-400); Red Cell Distribution Width 20.2 % (11.0-16.0)
[2022-10-31 15:11] LABS: NRBC Pct Auto 1.7 /100WBC (0.0-0.2); PLT ABN DIST 1
[2022-10-31 15:12] LABS: INTERNATIONAL NORM RATIO 2.2 (0.9-1.1); Prothrombin Time 26.7 SEC (10.0-13.1)
[2022-10-31 15:13] LABS: White Blood Count 45.1 X10*3/uL (4.8-10.8)
[2022-10-31 15:23] LABS: Lactic Acid 1.3 mmol/L (0.5-2.0)
[2022-10-31 15:30] LABS: Atypical Lymph Absolute Manual 0.5 x10*3/uL; Atypical Lymphs Percent Manual 1 % (0-6); Band Neutrophils Percent 8 % (3-5); Basophils Abs Manual 0.9 X10*3/uL (0.0-0.2); Basophils Percent Manual 2 % (0-2); Eosinophils Absolute Manual 0.5 X10*3/uL (0.0-0.4); Eosinophils Percent Manual 1 % (0-4); Lymphocytes Absolute Manual 0.9 X10*3/uL (1.2-4.9); Lymphocytes Percent Manual 2 % (20-40); Metamyelocytes Absolute 0.5 X10*3/uL; Metamyelocytes Percent 1 %; Myelocytes Absolute 0.5 X10*/uL; Myelocytes Percent 1 %; Neutrophils Absolute Manual 41.5 X10*3/uL (2.0-8.3); Neutrophils Percent Manual 84 % (45-73); Nucleated Red Blood Cells 2 /100WBC (0-0); Ovalocytes 1+ (5-14) /OIF; RBC Morphology NOTED
[2022-10-31 15:31] LABS: Platelet Estimate DECREASED (NORMAL); Platelet Morphology Comment NORMAL; Tear Drop Cells 1+ (0-2) /OIF
[2022-10-31 15:33] LABS: Influenza A PCR NEGATIVE (Negative); Influenza B PCR NEGATIVE (Negative); Resp Syncy Virus RNA Qual PCR NEGATIVE (Negative); SARS COV2 PCR INHOUSE NEGATIVE (Negative)
[2022-10-31 15:34] LABS: Troponin-I High Sensitivity 3.9 ng/L (<3.5-35.0)
[2022-10-31 15:36] LABS: Alanine Aminotransferase < 6 U/L (0-40); Albumin Level 3.3 g/dL (3.5-5.0); Anion Gap 13 (12-20); Aspartate Amino Transferase 6 U/L (5-37); Blood Urea Nitrogen 48 mg/dL (9-16); Carbon Dioxide 27 mmol/L (22-29); Chloride 104 mmol/L (96-108); Creatinine Clr Calc Pharmacy 31.3; Estimated Glomerular Filt Rate 37; Glucose Random 76 mg/dL (60-115); Sodium 139 mmol/L (135-145); Total Protein 5.5 g/dL (6.5-8.0)
[2022-10-31 15:45] LABS: Alkaline Phosphatase 96 U/L (39-117); Bilirubin Total 1.9 mg/dL (0.0-1.0)
[2022-10-31 16:32] LABS: B Type Natriuretic Peptide 569 pg/mL (<100)
[2022-10-31] MEDS: Furosemide 20 MG/2 ML VIAL 10 MG IVPUSH (16:33)
[2022-10-31] MEDS: Piperacillin Sodium/Tazobactam 3.375 GM in 0.9 % Sodium Chloride 50 ML IV (16:34)
[2022-10-31 17:30] VITALS: BP 84/54; PULSE 93; RESP 19; TEMP 36.5; O2SAT 93
--- NOTE | 2022-10-31 17:35 | PHA.MEDREC ---
Pharmacy Consult ? Medication Reconciliation Pharmacy has completed the medication reconciliation.
[2022-10-31] MEDS: 0.9 % Sodium Chloride 500 ML IVCONT ×2 (17:57→19:20)
[2022-10-31] MEDS: vancomycin HCL 1,500 MG in 0.9 % Sodium Chloride 500 ML 333.33 MG IV (18:11)
[2022-10-31 19:14] VITALS: BP 101/52; PULSE 90; RESP 16; TEMP 36.7; O2SAT 94
--- NOTE | 2022-10-31 19:20 | PC.NURSE ---
care of patient assumed .he is alert, oriented to self, birthday, year, and location. swelling noted to bilateral lower legs with red cellulitic looking rash to lle. bruise to left inner thigh. patient with several skin tears, some bandaged throughout upper and lower extremiteis.
[2022-10-31 20:59] VITALS: BP 91/38; PULSE 101; RESP 25; O2SAT 93
[2022-10-31 21:11] VITALS: BP 111/50; PULSE 98; RESP 19; O2SAT 93
--- NOTE | 2022-10-31 21:14 | PC.NURSE ---
MD Ramos made aware of blood pressures. Patient also has a 500cc fluid bolus ordered q1h despite elevated BNP- MD Ramos aware and to discontinue.
[2022-10-31 22:14] VITALS: BP 100/53; PULSE 99; RESP 17; O2SAT 95
[2022-11-01] VITALS (9 sets, daily range): BP systolic 91–111; BP diastolic 42–64; PULSE 81–113; RESP 14–23; TEMP 36.4–36.8; O2SAT 96–99; BMI 23.1
--- NOTE | 2022-11-01 00:11 | MHC.EDTECH ---
Pt pulled up in bed and new bed pad placed under pt. Pt belongings placed in personal belongings bed. Pt call wade placed in reach
--- NOTE | 2022-11-01 01:42 | P.HPHOSP_ITS ---
History of Present Illness Date of Service: 11/01/22 Chief Complaint: weakness, sob, le edema with erythema 87M with PMH CLL, splenomegaly, permanent afib, chronic diastolic chf, gout, bph, sent in by [facility] for bilateral lower extremity worsening edema and erythema. patient has chornic lower extremity edema, but has noted worsening with worsening erythema, no fever. LLE worse than RLE. patient also noted worsening sob, with orthopnea, and worse on exertion. denies chest pain. in ED labs singificant for hgb 7.4 down from 8.2, creatinine 1.78, increased from 1.24 in february 2022. positive UA (patient denies symptom). Review of Systems Review of Systems: Constitutional: Denies fever, denies Chills Eyes: denies blurry vision ENT: denies sore throat CVS: denies chest pain Respiratory: dyspnea GI: no abdominal pain : denies dysuria MSK: denies neck pain Skin: see hpi Neuro: denies specific motor weakness Psych: denies suicidal ideation Endocrine: denies heat/cold intolerance Hematologic: easy bruising Allergy: denies hives PMFSH Medical History (Updated 11/01/22 @ 01:48 by Lex Fleming MD) Afib CHF (congestive heart failure) CLL (chronic lymphocytic leukemia) Gout Family History (Updated 11/01/22 @ 01:47 by Lex Fleming MD) Father CAD (coronary artery disease) Dementia Mother Dementia Social History Household Members: Children [facility] Do you presently have visiting nurse or other home services: Yes ([facility] comes every other month) Alcohol intake: never Patient Tobacco Use Status: Former Tobacco user Tobacco use type: Cigarette, Cigar and Pipe e-Cigarette/Vaping Use: Never Used Second Hand Smoke Exposure: No Advance Directives: Yes Advance Directives on File: Yes Advance Directives Date on File: 02/19/22 service: Yes Current occupational status: retired Meds Allergies Allergy/AdvReac Type Severity Reaction Status Date / Time No Known Allergies Allergy Verified 02/18/22 10:19 Active Medications: Current Medications Albuterol Sulfate (Albuterol Sulfate 90 Mcg 8 Gm Inhaler) 2 puff INHALE Q6H PRN PRN Reason: Wheezing Allopurinol (Allopurinol 300 Mg Tablet) 300 mg PO DAILY [facility] Apixaban (Apixaban 5 Mg Tablet) 5 mg PO BID [facility] Ascorbic Acid (Ascorbic Acid 500 Mg Tablet) 500 mg PO DAILY [facility] Fluticasone/Vilanterol (Fluticasone/Vilanterol 100/25 Blst.W.Dev) 1 puff INHALE DAILY [facility] Furosemide (Furosemide 40 Mg/4 Ml Vial) 40 mg IVPUSH BID@0900,1800 [facility]; Protocol Hydroxyurea (Hydroxyurea 500 Mg Capsule) 500 mg PO DAILY [facility] Ceftriaxone Sodium 1 gm/ (Sodium Chloride) 50 mls @ 100 mls/hr IV Q24H [facility] Metoprolol Tartrate (Metoprolol Tartrate 12.5 Mg Halftab) 37.5 mg PO BID [facility]; Protocol Sodium Chloride (0.9 % Sodium Chloride Flush 3 Ml Syringe) 3 ml IVFLUSH QSHIFT [facility] Tamsulosin HCl (Tamsulosin Hcl 0.4 Mg Capsule) 0.4 mg PO DAILY [facility] Home Medications Medication Instructions Recorded Confirmed Last Taken Type albuterol sulfate 90 mcg/actuation 2 puff PO Q6H PRN Wheezing 02/18/22 10/31/22 10/31/22 History aerosol inhaler apixaban 5 mg tablet (Eliquis) 1 tab PO BID 02/18/22 10/31/22 10/31/22 History ascorbic acid (vitamin C) 500 mg 1 tab PO DAILY 02/18/22 10/31/22 10/31/22 History tablet fluticasone furoate 100 1 puff PO DAILY 02/18/22 10/31/22 10/31/22 History mcg-vilanterol 25 mcg/dose inhalation powder (Breo Ellipta) hydroxyurea 500 mg capsule 1 cap PO DAILY 02/18/22 10/31/22 10/31/22 History metoprolol tartrate 25 mg tablet 1.5 tab PO BID 02/18/22 10/31/22 10/31/22 History tamsulosin 0.4 mg capsule 1 cap PO DAILY 02/18/22 10/31/22 10/31/22 History torsemide 20 mg tablet 3 tab PO BID 02/18/22 10/31/22 10/31/22 History allopurinol 300 mg tablet 1 tab PO DAILY 10/31/22 10/31/22 10/31/22 History Physical Exam Vital Signs and Narrative: Vital Signs: Last Vital Signs Temp 98.1 F 10/31/22 19:14 Pulse 99 10/31/22 22:14 Resp 17 10/31/22 22:14 BP 100/53 L 10/31/22 22:14 Pulse Ox 95 10/31/22 22:14 O2 Del Method 10/31/22 22:14 BMI result Body Mass Index 26.0 General: frail, ill appearing HEENT: atraumatic Neck: normal to visual inspection CVS: S1, S2, irregular Resp: diminished bilateral Chest: non tender GI: soft, non tender, distended (splenomegaly) : no CVA tenderness Skin: diffuse bruising Extremities: 2+ bilateral lower extremity edema, LLE>RLE, with erythema Neuro: Oriented X3, grossly intact Psych: cooperative Results Labs CBC and Chem 7: 10/31/22 14:55 10/31/22 14:55 Labs: Laboratory Results - last 24 hr 10/31/22 10/31/22 10/31/22 14:48 14:48 14:55 MCV 85.5 MCH 24.9 L MCHC 29.1 L RDW 20.2 H Plt Count 108 L MPV 9.7 Immature Gran % (Auto) Cancelled Neut % (Auto) Cancelled Lymph % (Auto) Cancelled [place] % (Auto) Cancelled Eos % (Auto) Cancelled Baso % (Auto) Cancelled Lymph # (Auto) Cancelled [place] # (Auto) Cancelled Eos # (Auto) Cancelled Baso # (Auto) Cancelled Abs Immat Gran (auto) Cancelled Absolute Neuts (auto) Cancelled Absolute Nucleated RBC 0.760 H Nucleated RBC % (auto) 1.7 H Neutrophils % (Manual) 84 H Band Neutrophils % 8 H Lymphocytes % (Manual) 2 L Atypical Lymphs % (Man) 1 Eosinophils % (Manual) 1 Basophils % (Manual) 2 Metamyelocytes % 1 Myelocytes % 1 Abs Neuts (Manual) 41.5 H Lymphocytes # (Manual) 0.9 L Atyp Lymphs # (Manual) 0.5 Eosinophils # (Manual) 0.5 H Basophils # (Manual) 0.9 H Metamyelocytes # 0.5 Myelocytes # 0.5 Nucleated RBCs 2 H Platelet Estimate DECREASED Plt Morphology Comment NORMAL RBC Morphology NOTED Tear Drop Cells 1+ (0-2) Ovalocytes 1+ (5-14) PT INR Anion Gap Estim Creat Clear Calc Estimated GFR Random Glucose Lactic Acid Calcium Total Bilirubin AST ALT Alkaline Phosphatase Troponin I High Sens B-Natriuretic Peptide Total Protein Albumin Urine Color Yellow Urine Appearance Turbid Urine pH 6.0 Ur Specific [place] 1.010 Urine Protein 30 (1+) H Urine Glucose (UA) Negative Urine Ketones Negative Urine Blood Small (1+) H Urine Nitrite Negative Ur Leukocyte Esterase Large (3+) H Urine RBC 11-20 H Urine WBC >50 H Ur Squamous Epith Cells 0-2 Urine Bacteria Trace Hyaline Casts 3-5 Influenza Type A (PCR) NEGATIVE Influenza Type B (PCR) NEGATIVE RSV RNA Qual (PCR) NEGATIVE SARS-CoV-2 RNA (RT-PCR) NEGATIVE 10/31/22 10/31/22 10/31/22 14:55 14:55 14:55 MCV MCH MCHC RDW Plt Count MPV Immature Gran % (Auto) Neut % (Auto) Lymph % (Auto) [place] % (Auto) Eos % (Auto) Baso % (Auto) Lymph # (Auto) [place] # (Auto) Eos # (Auto) Baso # (Auto) Abs Immat Gran (auto) Absolute Neuts (auto) Absolute Nucleated RBC Nucleated RBC % (auto) Neutrophils % (Manual) Band Neutrophils % Lymphocytes % (Manual) Atypical Lymphs % (Man) Eosinophils % (Manual) Basophils % (Manual) Metamyelocytes % Myelocytes % Abs Neuts (Manual) Lymphocytes # (Manual) Atyp Lymphs # (Manual) Eosinophils # (Manual) Basophils # (Manual) Metamyelocytes # Myelocytes # Nucleated RBCs Platelet Estimate Plt Morphology Comment RBC Morphology Tear Drop Cells Ovalocytes PT INR Anion Gap 13 Estim Creat Clear Calc 31.3 Estimated GFR 37 Random Glucose 76 Lactic Acid 1.3 Calcium 8.0 L Total Bilirubin 1.9 H AST 6 ALT < 6 Alkaline Phosphatase 96 Troponin I High Sens 3.9 B-Natriuretic Peptide Total Protein 5.5 L Albumin 3.3 L Urine Color Urine Appearance Urine pH Ur Specific [place] Urine Protein Urine Glucose (UA) Urine Ketones Urine Blood Urine Nitrite Ur Leukocyte Esterase Urine RBC Urine WBC Ur Squamous Epith Cells Urine Bacteria Hyaline Casts Influenza Type A (PCR) Influenza Type B (PCR) RSV RNA Qual (PCR) SARS-CoV-2 RNA (RT-PCR) 10/31/22 10/31/22 14:55 14:55 MCV MCH MCHC RDW Plt Count MPV Immature Gran % (Auto) Neut % (Auto) Lymph % (Auto) [place] % (Auto) Eos % (Auto) Baso % (Auto) Lymph # (Auto) [place] # (Auto) Eos # (Auto) Baso # (Auto) Abs Immat Gran (auto) Absolute Neuts (auto) Absolute Nucleated RBC Nucleated RBC % (auto) Neutrophils % (Manual) Band Neutrophils % Lymphocytes % (Manual) Atypical Lymphs % (Man) Eosinophils % (Manual) Basophils % (Manual) Metamyelocytes % Myelocytes % Abs Neuts (Manual) Lymphocytes # (Manual) Atyp Lymphs # (Manual) Eosinophils # (Manual) Basophils # (Manual) Metamyelocytes # Myelocytes # Nucleated RBCs Platelet Estimate Plt Morphology Comment RBC Morphology Tear Drop Cells Ovalocytes PT 26.7 H INR 2.2 H Anion Gap Estim Creat Clear Calc Estimated GFR Random Glucose Lactic Acid Calcium Total Bilirubin AST ALT Alkaline Phosphatase Troponin I High Sens B-Natriuretic Peptide 569 H Total Protein Albumin Urine Color Urine Appearance Urine pH Ur Specific [place] Urine Protein Urine Glucose (UA) Urine Ketones Urine Blood Urine Nitrite Ur Leukocyte Esterase Urine RBC Urine WBC Ur Squamous Epith Cells Urine Bacteria Hyaline Casts Influenza Type A (PCR) Influenza Type B (PCR) RSV RNA Qual (PCR) SARS-CoV-2 RNA (RT-PCR) Imaging Radiologist's Impressions: Impressions Chest X-Ray 10/31/22 15:19 IMPRESSION: Persistent moderate left pleural effusion associated left base consolidation, at least in part compressive atelectasis. Diffuse sclerotic metastatic disease. Assessment and Plan (1) CLL (chronic lymphocytic leukemia): Status: Acute Plan 87M with PMH CLL, splenomegaly, permanent afib, chronic diastolic chf, gout, bph presented with weakness, le edema and erythema, found to have worsening anemia, alex. LE edema and erythema ? cellulitis on top of chronic dermatitis no sepsis (Leukocytosis due to CLL not sepsis) empiric rocephin follow up cultures check doppler rule out dvt acute on chronic diasotlic chf iv lasix monitor electoryltes check echo, ?CLL related amyloid ALEX ?cardiorenal, monitor possible UTI will cover empirically with rocpehin follow up cultures permanent afib eliquis (monitor closely with thrombocytopenia) lopressor gout allopurinol CLL with splenomegaly, symptomatic anemia, chronic thrombocytopenia will transfuse 1 unit prbc monitor cbc hydrea bph flomax dvt prophylaxis - on eliquis DNR/DNI patient with chf requiring iv lasix, anemia requiring transfuision, alex requiring close monitoring, high risk due to advanced age, frailty, therefore, expected to require atleast 2 midnights inpatient Time Spent With Patient Time: Total time managing care of this patient today ____ minutes. Quality Stroke Does the patient have a stroke diagnosis?: No VTE Prior VTE?: No VTE Risk Level:: Medical - moderate - high VTE Device Contraindication: Treatment Not Indicated VTE Drug Contraindication: N/A - Med Ordered
--- NOTE | 2022-11-01 02:59 | PC.NURSE ---
patient's blood is ready, but blood consent not yet complete. MD Fleming made aware. once blood consent is complete will send for /initiate blood.
--- NOTE | 2022-11-01 03:38 | PC.NURSE ---
per MD Fleming, infuse blood over 2 hours and no lasix beforehand (scheduled for lasix BID).
--- NOTE | 2022-11-01 04:31 | PC.NURSE ---
patient tolerating blood transfusion well. no suspected reaction at this time.
--- NOTE | 2022-11-01 05:49 | MHC.EDTECH ---
Pt assisted with using the urinal. Pt given pericare. Pt given warm blankets and call wade placed in reach
--- NOTE | 2022-11-01 07:00 | CA_ITS ---
Transthoracic Echocardiogram Patient (Last, First, Middle): Zenon Lee, Gender: Male Date of : 1935 Age: 87 Procedure Date: 11/01/2022 Procedure Type: Transthoracic Echocardiogram Location: ER Height: 177.8 cm Weight: 82.1 kg BSA: 2.00 m2 Heart Rate: 94 bpm BP: 111 / 61 mmHg Hand Model: IRENE Referring MD: Lex Fleming MD Symptoms: chf Study Quality: Good ECG Rhythm: Undetermined Conclusions: - Normal left ventricular size and systolic function. There is mildly increased left ventricular wall thickness. The visually estimated ejection fraction is between 55-60%. - There is a flattened septum in systole and diastole consistent with right ventricular pressure and volume overload. - Severely increased right ventricular cavity size. There is severely decreased right ventricular systolic function. - RA is dilated. - There is mild to moderate tricuspid valve regurgitation. The right ventricular systolic pressure is 57 mmHg. Significantly elevated right atrial pressure. Severe pulmonary hypertension is present. - There is a large left sided pleural effusion. - The inferior vena cava is dilated and does not collapse with inspiration. Findings Left Ventricle Normal left ventricular size and systolic function. There is mildly increased left ventricular wall thickness. The visually estimated ejection fraction is between 55-60%. There is no evidence of regional wall motion abnormalities. There is a flattened septum in systole and diastole consistent with right ventricular pressure and volume overload. Diastolic function is indeterminate on the basis of available data. Right Ventricle Severely increased right ventricular cavity size. There is severely decreased right ventricular systolic function. Atria The left atrium is normal in size. RA is dilated. Aortic Valve There is a normal trileaflet aortic valve. There is mild calcification of the aortic valve. There is mild thickening of the aortic valve. There is no aortic valve stenosis. There is no aortic valve regurgitation. Mitral Valve Normal mitral valve structure and function. There is mild mitral valve regurgitation. There is no mitral valve stenosis. Pulmonic Valve The pulmonic valve is likely normal. Tricuspid Valve Normal tricuspid valve structure. There is mild to moderate tricuspid valve regurgitation. The right ventricular systolic pressure is 57 mmHg. Significantly elevated right atrial pressure. Severe pulmonary hypertension is present. Great Vessels All visible segments of the aorta are normal in size. Venous The inferior vena cava is dilated and does not collapse with inspiration. Pericardium/Pleural There is no evidence of pericardial effusion. There is a large left sided pleural effusion. Prior Study Comparison No prior study available for comparison. Measurements 2D Linear Measurements IVSd: 1.16 0.6-0.9/0.6-1.0 cm LVIDd: 4.58 3.9-5.3/4.2-5.9 cm LVIDd Index: 2.29 2.4-3.2/2.2-3.1 cm/m2 LVIDs: 3.23 2.0-3.6 cm LVPWd: 1.07 0.7-1.1 cm LA Diam: 4.10 2.7-3.8/3.0-4.0 cm LAIDs Index: 2.05 1.5-2.3 cm/m2 LV Mass: 228.54 67-162/88-224 g LV Mass Index: 114.27 43-95/49-115 g/m2 LVOT Diam: 2.20 3.0+(-)1.3 cm 2D Systolic Function EF 4C: 59.00 >55% EF 2C: 54.10 >55% EF BiP: 56.90 >55% Mitral Valve MV Pk E: 1.14 MV Decel Time: 202.00 PHT: 59.00 MVA PHT: 3.73 Decel Stark: 5.66 Aortic Valve AoV Pk [place]: 1.20 AoV Mn [place]: 0.90 AoV VTI: 0.23 AoV Pk Grad: 6.00 Aov Mn Grad: 4.00 NISHA Cont.VTI: 2.34 LVOT LVOT Pk [place]: 0.79 LVOT Mn [place]: 0.55 LVOT VTI: 0.14 LVOT Pk Grad: 3.00 LVOT Mn Grad: 1.00 LVOT Diam: 2.20 LVOT Area: 3.80 Diastolic Function MV Pk E: 1.14 Right Ventricle TAPSE (mm): 10.10 TVS' [place]: 6.23 Tricuspid Valve TR Pk [place]: 3.25 TR Pk Grad: 42.00 RA Press: 15.00 RVSP: 57.00 Great Vessels Aorta Sinus of Valsalva: 3.30 2.0-3.5 cm Ao Asc: 3.40 2.1-3.4 cm Pulmonary Valve PV Pk [place]: 0.64 Peak PV Grad: 2.00 Updated in Other Vendor System with Status of Final Binu Bates MD electronically signed on 11/01/2022 6:10:24 PM with status of Final
[2022-11-01] MEDS: Fluticasone/Vilanterol 100/25 BLST.W.DEV 1 PUFF INHALE (08:04)
[2022-11-01] MEDS: Tamsulosin HCL 0.4 MG CAPSULE PO (08:10)
[2022-11-01] MEDS: allopurinoL 300 MG TABLET PO (08:10)
[2022-11-01] MEDS: Furosemide 40 MG/4 ML VIAL IVPUSH ×2 (08:10→16:30)
[2022-11-01] MEDS: Ascorbic Acid 500 MG TABLET PO (08:10)
[2022-11-01] MEDS: cefTRIAXone sodium 1 GM in 0.9 % Sodium Chloride 50 ML IV (08:11)
[2022-11-01] MEDS: Metoprolol Tartrate 12.5 MG HALFTAB 37.5 MG PO ×2 (08:11→21:26)
[2022-11-01] MEDS: 0.9 % Sodium Chloride Flush 3 ML SYRINGE IVFLUSH ×3 (08:11→21:27)
--- NOTE | 2022-11-01 10:08 | MHC.CM.PN ---
Patient is unavailable; CM spoke with Daughter/HCP/Rivka at her listed phone number and CM addressed IMM with her (original to be mailed certified letter to Rivka and a copy to be placed on the chart). Patient lives alone in an apartment at [facility] and is active with a [facility]. Home/resume said services is the goal and CM has initiated and will follow for dc planning. PCP is Dr. Cruz from [facility] and Patient has received [place]/Covid vax x4.
[2022-11-01] MEDS: Apixaban 2.5 MG TABLET PO ×2 (10:38→21:27)
--- NOTE | 2022-11-01 10:39 | HO.PM.IMPN ---
Subjective Subjective Date of Service: 11/01/22 Interval History: I'm just so tired and I don't understand why this keeps happening Patient reports worsening fatigue , worsening shortness of breath as well as worsening lower extremity edema bilaterally with worsening erythema to left lower extremity. Review of Systems A complete 12 point review of systems has been performed and is negative if not noted in HPI Physical Exam Vital Signs: Vital Signs: Last Vital Signs Temp 98.2 F 11/01/22 07:47 Pulse 113 H 11/01/22 08:05 Resp 20 11/01/22 08:05 BP 111/61 11/01/22 07:47 Pulse Ox 96 11/01/22 07:47 O2 Del Method 11/01/22 07:47 O2 Flow Rate 2 11/01/22 07:47 BMI result Body Mass Index 26.0 Const: Other: General: Appears stated age, in no acute distress, ill-appearing,answers questions accurately and appropriately, Pleasant soft-spoken. Skin: Multiple ecchymotic areas noted to upper and lower extremities pain Cardiology: irregular rhythm, + JVD Respiratory: diminished overall, no obvious rales/ rhonchi, no expiratory/inspiratorywheezing, Abdomen: Thin, soft, nontender, no discomfort noted with palpation, positive bowel sounds throughout Extremities: 3+ bilateral pitting edema noted. Erythema noted to bilateral lower extremities however warmth noted to left lower extremity -cellulitic in appearance. Neuro: Alert and oriented x3 Psych: Mood appropriate, no agitation /restlessness noted. Objective Data Active Medications Albuterol Sulfate (Albuterol Sulfate 90 Mcg 8 Gm Inhaler) 2 puff INHALE RQ6H PRN PRN Reason: Wheezing Allopurinol (Allopurinol 300 Mg Tablet) 300 mg PO DAILY [facility] Last Admin: 11/01/22 08:10 Dose: 300 mg Documented By: EMMANUELLE Apixaban (Apixaban 2.5 Mg Tablet) 2.5 mg PO BID [facility] Last Admin: 11/01/22 10:38 Dose: 2.5 mg Documented By: EMMANUELLE Ascorbic Acid (Ascorbic Acid 500 Mg Tablet) 500 mg PO DAILY [facility] Last Admin: 11/01/22 08:10 Dose: 500 mg Documented By: EMMANUELLE Fluticasone/Vilanterol (Fluticasone/Vilanterol 100/25 Blst.W.Dev) 1 puff INHALE RDAILY [facility] Last Admin: 11/01/22 08:04 Dose: 1 puff Documented By: DAMION Furosemide (Furosemide 40 Mg/4 Ml Vial) 40 mg IVPUSH BID@0800,1700 [facility]; Protocol Last Admin: 11/01/22 08:10 Dose: 40 mg Documented By: EMMANUELLE Hydroxyurea (Hydroxyurea 500 Mg Capsule) 500 mg PO DAILY [facility] Last Admin: 11/01/22 08:56 Dose: Not Given Documented By: EMMANUELLE Non-Admin Reason: Med Not Available Ceftriaxone Sodium 1 gm/ (Sodium Chloride) 50 mls @ 100 mls/hr IV Q24H [facility] Last Infusion: 11/01/22 09:12 Dose: 0 mls/hr Documented By: EMMANUELLE Metoprolol Tartrate (Metoprolol Tartrate 12.5 Mg Halftab) 37.5 mg PO BID [facility]; Protocol Last Admin: 11/01/22 08:11 Dose: 37.5 mg Documented By: EMMANUELLE Sodium Chloride (0.9 % Sodium Chloride Flush 3 Ml Syringe) 3 ml IVFLUSH QSHIFT [facility] Last Admin: 11/01/22 08:11 Dose: 3 ml Documented By: EMMANUELLE Tamsulosin HCl (Tamsulosin Hcl 0.4 Mg Capsule) 0.4 mg PO DAILY [facility] Last Admin: 11/01/22 08:10 Dose: 0.4 mg Documented By: EMMANUELLE Labs CBC & Chem 7: 10/31/22 14:55 10/31/22 14:55 Labs: Laboratory Results - last 24 hr 10/31/22 10/31/22 10/31/22 14:48 14:48 14:55 MCV 85.5 MCH 24.9 L MCHC 29.1 L RDW 20.2 H Plt Count 108 L MPV 9.7 Immature Gran % (Auto) Cancelled Neut % (Auto) Cancelled Lymph % (Auto) Cancelled Tyler % (Auto) Cancelled Eos % (Auto) Cancelled Baso % (Auto) Cancelled Lymph # (Auto) Cancelled Tyler # (Auto) Cancelled Eos # (Auto) Cancelled Baso # (Auto) Cancelled Abs Immat Gran (auto) Cancelled Absolute Neuts (auto) Cancelled Absolute Nucleated RBC 0.760 H Nucleated RBC % (auto) 1.7 H Neutrophils % (Manual) 84 H Band Neutrophils % 8 H Lymphocytes % (Manual) 2 L Atypical Lymphs % (Man) 1 Eosinophils % (Manual) 1 Basophils % (Manual) 2 Metamyelocytes % 1 Myelocytes % 1 Abs Neuts (Manual) 41.5 H Lymphocytes # (Manual) 0.9 L Atyp Lymphs # (Manual) 0.5 Eosinophils # (Manual) 0.5 H Basophils # (Manual) 0.9 H Metamyelocytes # 0.5 Myelocytes # 0.5 Nucleated RBCs 2 H Platelet Estimate DECREASED Plt Morphology Comment NORMAL RBC Morphology NOTED Tear Drop Cells 1+ (0-2) Ovalocytes 1+ (5-14) PT INR Anion Gap Estim Creat Clear Calc Estimated GFR Random Glucose Lactic Acid Calcium Total Bilirubin AST ALT Alkaline Phosphatase Troponin I High Sens B-Natriuretic Peptide Total Protein Albumin Urine Color Yellow Urine Appearance Turbid Urine pH 6.0 Ur Specific Bulger 1.010 Urine Protein 30 (1+) H Urine Glucose (UA) Negative Urine Ketones Negative Urine Blood Small (1+) H Urine Nitrite Negative Ur Leukocyte Esterase Large (3+) H Urine RBC 11-20 H Urine WBC >50 H Ur Squamous Epith Cells 0-2 Urine Bacteria Trace Hyaline Casts 3-5 Influenza Type A (PCR) NEGATIVE Influenza Type B (PCR) NEGATIVE RSV RNA Qual (PCR) NEGATIVE SARS-CoV-2 RNA (RT-PCR) NEGATIVE Blood Type Antibody Screen Crossmatch 10/31/22 10/31/22 10/31/22 14:55 14:55 14:55 MCV MCH MCHC RDW Plt Count MPV Immature Gran % (Auto) Neut % (Auto) Lymph % (Auto) Tyler % (Auto) Eos % (Auto) Baso % (Auto) Lymph # (Auto) Tyler # (Auto) Eos # (Auto) Baso # (Auto) Abs Immat Gran (auto) Absolute Neuts (auto) Absolute Nucleated RBC Nucleated RBC % (auto) Neutrophils % (Manual) Band Neutrophils % Lymphocytes % (Manual) Atypical Lymphs % (Man) Eosinophils % (Manual) Basophils % (Manual) Metamyelocytes % Myelocytes % Abs Neuts (Manual) Lymphocytes # (Manual) Atyp Lymphs # (Manual) Eosinophils # (Manual) Basophils # (Manual) Metamyelocytes # Myelocytes # Nucleated RBCs Platelet Estimate Plt Morphology Comment RBC Morphology Tear Drop Cells Ovalocytes PT INR Anion Gap 13 Estim Creat Clear Calc 31.3 Estimated GFR 37 Random Glucose 76 Lactic Acid 1.3 Calcium 8.0 L Total Bilirubin 1.9 H AST 6 ALT < 6 Alkaline Phosphatase 96 Troponin I High Sens 3.9 B-Natriuretic Peptide Total Protein 5.5 L Albumin 3.3 L Urine Color Urine Appearance Urine pH Ur Specific Bulger Urine Protein Urine Glucose (UA) Urine Ketones Urine Blood Urine Nitrite Ur Leukocyte Esterase Urine RBC Urine WBC Ur Squamous Epith Cells Urine Bacteria Hyaline Casts Influenza Type A (PCR) Influenza Type B (PCR) RSV RNA Qual (PCR) SARS-CoV-2 RNA (RT-PCR) Blood Type Antibody Screen Crossmatch 10/31/22 10/31/22 11/01/22 14:55 14:55 01:48 MCV MCH MCHC RDW Plt Count MPV Immature Gran % (Auto) Neut % (Auto) Lymph % (Auto) Tyler % (Auto) Eos % (Auto) Baso % (Auto) Lymph # (Auto) Tyler # (Auto) Eos # (Auto) Baso # (Auto) Abs Immat Gran (auto) Absolute Neuts (auto) Absolute Nucleated RBC Nucleated RBC % (auto) Neutrophils % (Manual) Band Neutrophils % Lymphocytes % (Manual) Atypical Lymphs % (Man) Eosinophils % (Manual) Basophils % (Manual) Metamyelocytes % Myelocytes % Abs Neuts (Manual) Lymphocytes # (Manual) Atyp Lymphs # (Manual) Eosinophils # (Manual) Basophils # (Manual) Metamyelocytes # Myelocytes # Nucleated RBCs Platelet Estimate Plt Morphology Comment RBC Morphology Tear Drop Cells Ovalocytes PT 26.7 H INR 2.2 H Anion Gap Estim Creat Clear Calc Estimated GFR Random Glucose Lactic Acid Calcium Total Bilirubin AST ALT Alkaline Phosphatase Troponin I High Sens B-Natriuretic Peptide 569 H Total Protein Albumin Urine Color Urine Appearance Urine pH Ur Specific Bulger Urine Protein Urine Glucose (UA) Urine Ketones Urine Blood Urine Nitrite Ur Leukocyte Esterase Urine RBC Urine WBC Ur Squamous Epith Cells Urine Bacteria Hyaline Casts Influenza Type A (PCR) Influenza Type B (PCR) RSV RNA Qual (PCR) SARS-CoV-2 RNA (RT-PCR) Blood Type B Positive Antibody Screen NEGATIVE Crossmatch See Detail Microbiology Microbiology Results: Microbiology 10/31/22 14:48 Urine Culture - Preliminary Urine clean catch - Clean Catch Midstream Gram negative pauline Assessment and Plan Time Spent With Patient Time: 87-year-old male admitted with acute on chronic diastolic congestive heart failure, left lower extremity cellulitis, ALEX and UTI with further issues as noted below. Acute exacerbation of chronic diastolic congestive heart failure Bilateral lower extremity edema -Patient has + JVD, pitting lower extremity edema and BNP noted to be 569. 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 Left lower extremity cellulitis - Patient does have a history of chronic dermatitis of bilateral lower extremities. - Bilateral legs noted to have erythema, left greater than right, left lower extremity also noted to be tender and warm. - Add on Doxycycline and consult ID - bilateral ultrasound duplex study ordered however pending at time of dictation. ALEX - Current creatinine 1.78, increase from baseline and since last discharge - Likely cardiorenal, monitor creatinine as patient is on IV diuretics - Avoid/hold nephrotoxins. UTI - On ceftriaxone. Await cultures. CLL with splenomegaly Symptomatic anemia Chronic thrombocytopenia - Hgb & Hct 7.4/25.4, platelets 108. - Patient received 1 unit PRBCs. He denies signs of bleeding.Monitor CBC and for signs of volume overload. Atrial fibrillation, chronic - Rate controlled.On eliquis and BB Gout -Allopurinol BPH - he is asymptomatic. Continue Flomax. DVT prophylaxis -Eliquis continued and adjusted per pharmacy recommendations Patient is a DNR/DNI Case and plan discussed with Dr Wooten [facility] Patient requires continue IV Lasix, anemia requiring transfusion as well as ALEX and advanced age and fragility, expected to require at least 2 midnights inpatient status Quality Stroke Does the patient have a stroke diagnosis?: No VTE Prior VTE?: No VTE Risk Level:: Medical - moderate - high VTE Device Contraindication: Treatment Not Indicated VTE Drug Contraindication: N/A - Med Ordered
--- NOTE | 2022-11-01 11:45 | PC.NURSE ---
patient alert, oriented x3. able to make needs known. [place] catheter placed for accurate output monitoring. reports SOB on exertion. on 2L nasal cannula. call wade within reach
--- NOTE | 2022-11-01 14:12 | PC.NURSE ---
patient ate lunch while sitting on edge of bed..
[2022-11-01] MEDS: Doxycycline Monohydrate 100 MG CAPSULE PO ×2 (16:30→21:27)
[2022-11-02 04:00] VITALS: BP 103/55; PULSE 94; RESP 16; TEMP 36.6; O2SAT 90
[2022-11-02 06:20] LABS: Hematocrit 29.2 % (42.0-52.0); Hemoglobin 8.6 g/dl (14.0-18.0); Mean Corpuscular HGB Conc 29.5 g/dl (31.0-36.0); Mean Corpuscular Hemoglobin 25.5 pg (27.0-33.0); Mean Corpuscular Volume 86.6 fL (80.0-98.0); Mean Platelet Volume 10.5 fL (9.4-12.4); Red Blood Count 3.37 X10*6/uL (4.60-5.80); Red Cell Distribution Width 19.6 % (11.0-16.0)
[2022-11-02 06:26] LABS: NRBC Pct Auto 1.7 /100WBC (0.0-0.2); Platelet Count 93 X10*3/uL (160-400); White Blood Count 46.1 X10*3/uL (4.8-10.8)
[2022-11-02 06:39] LABS: Alanine Aminotransferase < 6 U/L (0-40); Alkaline Phosphatase 97 U/L (39-117); Anion Gap 14 (12-20); Aspartate Amino Transferase 6 U/L (5-37); Bilirubin Direct 0.5 mg/dL (0.0-0.5); Bilirubin Total 1.6 mg/dL (0.0-1.0); Blood Urea Nitrogen 43 mg/dL (9-16); Calcium 7.9 mg/dL (8.4-10.2); Carbon Dioxide 26 mmol/L (22-29); Chloride 106 mmol/L (96-108); Creatinine Clr Calc Pharmacy 37.9; Estimated Glomerular Filt Rate 46; Glucose Fasting 62 mg/dL (60-99); Magnesium 2.6 mg/dL (1.6-2.6); Potassium 4.1 mmol/L (3.3-5.1); Sodium 142 mmol/L (135-145); Total Protein 5.1 g/dL (6.5-8.0)
[2022-11-02] MEDS: Metoprolol Tartrate 12.5 MG HALFTAB 37.5 MG PO (07:40)
[2022-11-02] MEDS: Doxycycline Monohydrate 100 MG CAPSULE PO ×2 (07:40→22:29)
[2022-11-02] MEDS: Apixaban 2.5 MG TABLET PO (07:40)
[2022-11-02] MEDS: Ascorbic Acid 500 MG TABLET PO (07:40)
[2022-11-02] MEDS: allopurinoL 300 MG TABLET PO (07:40)
[2022-11-02] MEDS: Hydroxyurea 500 MG CAPSULE PO (07:41)
[2022-11-02] MEDS: Tamsulosin HCL 0.4 MG CAPSULE PO (07:41)
[2022-11-02] MEDS: 0.9 % Sodium Chloride Flush 3 ML SYRINGE IVFLUSH ×2 (07:41→22:29)
[2022-11-02] MEDS: Furosemide 40 MG/4 ML VIAL IVPUSH (07:41)
[2022-11-02 08:00] VITALS: BP 105/51; PULSE 118; RESP 18; TEMP 36.7; O2SAT 99
[2022-11-02 08:56] LABS: C Reactive Protein 3.96 mg/dL (< or = 0.50)
[2022-11-02] MEDS: oxyCODONE HCl Immed Release 5 MG TABLET PO (10:54)
[2022-11-02] MEDS: cefTRIAXone sodium 1 GM in 0.9 % Sodium Chloride 50 ML IV (10:54)
[2022-11-02] MEDS: Fluticasone/Vilanterol 100/25 BLST.W.DEV 1 PUFF INHALE (12:30)
[2022-11-02 12:32] VITALS: PULSE 78; RESP 15; O2SAT 92
--- NOTE | 2022-11-02 13:50 | P.PNIM_ITS ---
Subjective Subjective Date of Service: 11/02/22 Interval History: swelling and redness of legs improved; still painful no fever Review of Systems Review of Systems: Yes all other systems are reviewed and are negative Physical Exam Vital Signs: Vital Signs: Last Vital Signs Temp 98.0 F 11/02/22 08:00 Pulse 78 11/02/22 12:32 Resp 15 11/02/22 12:32 BP 105/51 L 11/02/22 08:00 Pulse Ox 99 11/02/22 08:00 O2 Del Method 11/02/22 08:00 O2 Flow Rate 2 11/02/22 08:00 BMI result Body Mass Index 23.1 Gen: in no acute distress HEENT: sclera anicteric, moist mucus membranes Neck: supple Lungs: clear to auscultation bilaterally Heart: irregularly irregular, no murmurs Abd: soft, non-tender, non-distended Ext: 1+ bilateral leg edema Skin: warm/well-perfused, multiple ecchymoses, bright erythema L mayo Neuro: alert and oriented x3, no focal findings Psych: appropriate affect Objective Data Active Medications Acetaminophen (Acetaminophen 325 Mg Tablet) 650 mg PO Q4H PRN PRN Reason: mild pain Albuterol Sulfate (Albuterol Sulfate 90 Mcg 8 Gm Inhaler) 2 puff INHALE RQ6H PRN PRN Reason: Wheezing Allopurinol (Allopurinol 300 Mg Tablet) 300 mg PO DAILY [facility] Last Admin: 11/02/22 07:40 Dose: 300 mg Documented By: LEMUEL Apixaban (Apixaban 2.5 Mg Tablet) 2.5 mg PO BID [facility] Last Admin: 11/02/22 07:40 Dose: 2.5 mg Documented By: LEMUEL Ascorbic Acid (Ascorbic Acid 500 Mg Tablet) 500 mg PO DAILY [facility] Last Admin: 11/02/22 07:40 Dose: 500 mg Documented By: LEMUEL Doxycycline Monohydrate (Doxycycline Monohydrate 100 Mg Capsule) 100 mg PO BID [facility] Last Admin: 11/02/22 07:40 Dose: 100 mg Documented By: LEMUEL Fluticasone/Vilanterol (Fluticasone/Vilanterol 100/25 Blst.W.Dev) 1 puff INHALE RDAILY [facility] Last Admin: 11/02/22 12:30 Dose: 1 puff Documented By: PEDRO Furosemide (Furosemide 40 Mg/4 Ml Vial) 40 mg IVPUSH BID@0800,1700 [facility]; Protocol Last Admin: 11/02/22 07:41 Dose: 40 mg Documented By: LEMUEL Hydroxyurea (Hydroxyurea 500 Mg Capsule) 500 mg PO DAILY [facility] Last Admin: 11/02/22 07:41 Dose: 500 mg Documented By: LEMUEL Ceftriaxone Sodium 1 gm/ (Sodium Chloride) 50 mls @ 100 mls/hr IV Q24H [facility] Last Infusion: 11/02/22 11:33 Dose: 0 mls/hr Documented By: HERNESTO Metoprolol Tartrate (Metoprolol Tartrate 12.5 Mg Halftab) 37.5 mg PO BID [facility]; Protocol Last Admin: 11/02/22 07:40 Dose: 37.5 mg Documented By: LEMUEL Morphine Sulfate (Morphine Sulfate 2 Mg/Ml Cartridge) 2 mg IVPUSH Q4H PRN; Protocol PRN Reason: severe pain Oxycodone HCl (Oxycodone Hcl Immed Release 5 Mg Tablet) 5 mg PO Q4H PRN PRN Reason: moderate pain Last Admin: 11/02/22 10:54 Dose: 5 mg Documented By: HERNESTO Sodium Chloride (0.9 % Sodium Chloride Flush 3 Ml Syringe) 3 ml IVFLUSH QSHIFT [facility] Last Admin: 11/02/22 07:41 Dose: 3 ml Documented By: LEMUEL Tamsulosin HCl (Tamsulosin Hcl 0.4 Mg Capsule) 0.4 mg PO DAILY [facility] Last Admin: 11/02/22 07:41 Dose: 0.4 mg Documented By: LEMUEL Labs CBC & Chem 7: 11/02/22 05:33 11/02/22 05:33 Labs: Laboratory Results - last 24 hr 11/02/22 11/02/22 05:33 05:33 MCV 86.6 MCH 25.5 L MCHC 29.5 L RDW 19.6 H Plt Count 93 L MPV 10.5 Absolute Nucleated RBC 0.780 H Nucleated RBC % (auto) 1.7 H Anion Gap 14 Estim Creat Clear Calc 37.9 Estimated GFR 46 Fasting Glucose 62 Calcium 7.9 L Magnesium 2.6 Total Bilirubin 1.6 H Direct Bilirubin 0.5 AST 6 ALT < 6 Alkaline Phosphatase 97 C-Reactive Protein 3.96 H Total Protein 5.1 L Albumin 3.0 L TTE 11/01/22 - Normal left ventricular size and systolic function. There is ? mildly increased left ventricular wall thickness.? The visually? estimated ejection fraction is between 55-60%. ? - There is a flattened septum in systole and diastole consistent with right ventricular pressure and volume overload. ? - Severely increased right ventricular cavity size.? There is? ? severely decreased right ventricular systolic function.? - RA is dilated. ? - There is mild to moderate tricuspid valve regurgitation.? The? right ventricular systolic pressure is 57 mmHg.? Significantly ? elevated right atrial pressure.? Severe pulmonary hypertension is present. ? - There is a large left sided pleural effusion.? - The inferior vena cava is dilated and does not collapse with ? inspiration. ? Impressions Venous Duplex 11/01/22 13:30 IMPRESSION: No DVT demonstrated in the bilateral lower extremity. Microbiology Microbiology Results: Microbiology 10/31/22 14:48 Urine Culture - Final Urine clean catch - Clean Catch Midstream Proteus mirabilis 10/31/22 14:55 Blood Culture - Preliminary Blood - Venous No growth after 24 hours. 10/31/22 14:55 Blood Culture - Preliminary Blood - Venous No growth after 24 hours. Assessment and Plan (1) CLL (chronic lymphocytic leukemia): Status: Acute Plan d#2 87yo M with CLL, CHF, chronic AF admitted with CHF exacerbation, LLE cellulitis, ALEX, and UTI # acute-chronic R-sided HF - continue IV diuresis, TTE shows severe R-sided HF. Cardiology consultation. # acute hypoxic resp failure - diurese + wean O2 as tolerated # LLE cellulitis - doxycycline d#2 # ALEX - likely cardiorenal, improving with diuresis # UTI, Proteus mirabilis - ceftriaxone d#2 # CLL with anemia + thrombocytopenia - Hb responded appropriately to 1u pRBCs. monitor CBC - continue hydroxyurea # chronic AF - continue apixaban + metoprolol tartrate # gout - continue allopurinol # BPH - continue tamsulosin # VTE ppx: apixaban In my clinical judgment, the patient requires continued inpatient hospitalization for the following reasons: hypoxia, IV diuresis Time Spent With Patient Time: Total time managing care of this patient today ____ minutes. Quality Stroke Does the patient have a stroke diagnosis?: No VTE Prior VTE?: No VTE Risk Level:: Medical - moderate - high VTE Device Contraindication: Treatment Not Indicated VTE Drug Contraindication: N/A - Med Ordered
--- NOTE | 2022-11-02 14:22 | P.CNID_ITS ---
History of Present Illness Data of Consult Service Date: 11/02/22 Requesting physician: Edy Red Primary Care Provider: MD MARBIN Olsen Reason for consult: reddened leg,urinary hesitancy He presents with weakness for three to four days and fall according to patient. He has LLE bruising and redness over mayo area. He also has evidence of urinary hesitancy with proteus seen urine. Review of Systems Review of Systems: Yes all other systems are reviewed and are negative PMFSH Past Medical History Medical History (Updated 11/02/22 @ 14:30 by Betzaida Lindsey MD) Afib CHF (congestive heart failure) CLL (chronic lymphocytic leukemia) Gout Superficial bruising of lower leg UTI (urinary tract infection) Family History Family History Father CAD (coronary artery disease) Dementia Mother Dementia Family history: reviewed and not pertinent Social History Social History Household Members: None Housing: Assisted Living Facility Do you presently have visiting nurse or other home services: Yes Alcohol intake: never Patient Tobacco Use Status: Former Tobacco user Tobacco use type: Cigarette, Cigar and Pipe e-Cigarette/Vaping Use: Never Used Second Hand Smoke Exposure: No Advance Directives Date on File: 02/19/22 service: Yes Current occupational status: retired [employer] Allergies Allergy/AdvReac Type Severity Reaction Status Date / Time No Known Allergies Allergy Verified 02/18/22 10:19 Active Medications: Current Medications Acetaminophen (Acetaminophen 325 Mg Tablet) 650 mg PO Q4H PRN PRN Reason: mild pain Albuterol Sulfate (Albuterol Sulfate 90 Mcg 8 Gm Inhaler) 2 puff INHALE RQ6H PRN PRN Reason: Wheezing Allopurinol (Allopurinol 300 Mg Tablet) 300 mg PO DAILY [facility] Last Admin: 11/02/22 07:40 Dose: 300 mg Apixaban (Apixaban 5 Mg Tablet) 5 mg PO BID [facility] Ascorbic Acid (Ascorbic Acid 500 Mg Tablet) 500 mg PO DAILY [facility] Last Admin: 11/02/22 07:40 Dose: 500 mg Doxycycline Monohydrate (Doxycycline Monohydrate 100 Mg Capsule) 100 mg PO BID [facility] Last Admin: 11/02/22 07:40 Dose: 100 mg Fluticasone/Vilanterol (Fluticasone/Vilanterol 100/25 Blst.W.Dev) 1 puff INHALE RDAILY [facility] Last Admin: 11/02/22 12:30 Dose: 1 puff Furosemide (Furosemide 40 Mg/4 Ml Vial) 40 mg IVPUSH BID@0800,1700 [facility]; Protocol Last Admin: 11/02/22 07:41 Dose: 40 mg Hydroxyurea (Hydroxyurea 500 Mg Capsule) 500 mg PO DAILY [facility] Last Admin: 11/02/22 07:41 Dose: 500 mg Ceftriaxone Sodium 1 gm/ (Sodium Chloride) 50 mls @ 100 mls/hr IV Q24H [facility] Last Infusion: 11/02/22 11:33 Dose: Infused Metoprolol Tartrate (Metoprolol Tartrate 12.5 Mg Halftab) 37.5 mg PO BID [facility]; Protocol Last Admin: 11/02/22 07:40 Dose: 37.5 mg Morphine Sulfate (Morphine Sulfate 2 Mg/Ml Cartridge) 2 mg IVPUSH Q4H PRN; Protocol PRN Reason: severe pain Oxycodone HCl (Oxycodone Hcl Immed Release 5 Mg Tablet) 5 mg PO Q4H PRN PRN Reason: moderate pain Last Admin: 11/02/22 10:54 Dose: 5 mg Sodium Chloride (0.9 % Sodium Chloride Flush 3 Ml Syringe) 3 ml IVFLUSH QSHIFT [facility] Last Admin: 11/02/22 07:41 Dose: 3 ml Tamsulosin HCl (Tamsulosin Hcl 0.4 Mg Capsule) 0.4 mg PO DAILY [facility] Last Admin: 11/02/22 07:41 Dose: 0.4 mg Home Medications Medication Instructions Recorded Confirmed Last Taken Type albuterol sulfate 90 mcg/actuation 2 puff PO Q6H PRN Wheezing 02/18/22 10/31/22 10/31/22 History aerosol inhaler apixaban 5 mg tablet (Eliquis) 1 tab PO BID 02/18/22 10/31/22 10/31/22 History ascorbic acid (vitamin C) 500 mg 1 tab PO DAILY 02/18/22 10/31/22 10/31/22 History tablet fluticasone furoate 100 1 puff PO DAILY 02/18/22 10/31/22 10/31/22 History mcg-vilanterol 25 mcg/dose inhalation powder (Breo Ellipta) hydroxyurea 500 mg capsule 1 cap PO DAILY 02/18/22 10/31/22 10/31/22 History metoprolol tartrate 25 mg tablet 1.5 tab PO BID 02/18/22 10/31/22 10/31/22 History tamsulosin 0.4 mg capsule 1 cap PO DAILY 02/18/22 10/31/22 10/31/22 History torsemide 20 mg tablet 3 tab PO BID 02/18/22 10/31/22 10/31/22 History allopurinol 300 mg tablet 1 tab PO DAILY 10/31/22 10/31/22 10/31/22 History Physical Exam Vital Signs: Vital Signs: Last Vital Signs Temp 98.0 F 11/02/22 08:00 Pulse 78 11/02/22 12:32 Resp 15 11/02/22 12:32 BP 105/51 L 11/02/22 08:00 Pulse Ox 99 11/02/22 08:00 O2 Del Method 11/02/22 08:00 O2 Flow Rate 2 11/02/22 08:00 BMI result Body Mass Index 23.1 Const: General: cooperative HEENT: Head: Yes normal to inspection Face and sinus: Yes normal facial exam Mouth: Normal oral and palatal mucosa present Teeth and gingiva: dentition normal Eyes: General: appearance normal, both eyes and all related structures Pu pils: Equal, round and reactive pupils present Resp: Effort & Inspection: normal respiratory effort Cardio: Rate: regular rate Rhythm: regular rhythm GI: Palpation (GI): Soft to palpation and nontender : General: Yes no CVA tenderness Back/Spine/Pelvis: Back: no CVA tenderness Skin: General skin exam: no rashes or lesions noted Neuro: Other: deafness General: moves all extremities Cranial nerves: Yes Equal, round and reactive pupils present Extrem: Other: left leg bruising thigh and tib/fib area slt erythema Psych: Appearance: grossly normal Results Labs CBC & Chem 7: 11/02/22 05:33 11/02/22 05:33 Labs: Short CBC 11/02/22 Range/Units 05:33 WBC 46.1 H* (4.8-10.8) X10*3/uL Hgb 8.6 L (14.0-18.0) g/dl Hct 29.2 L (42.0-52.0) % Plt Count 93 L (160-400) X10*3/uL BMP 11/02/22 05:33 Sodium 142 Potassium 4.1 Chloride 106 Carbon Dioxide 26 BUN 43 H Creatinine 1.47 H Calcium 7.9 L Liver Function 11/02/22 Range/Units 05:33 Total Bilirubin 1.6 H (0.0-1.0) mg/dL Direct Bilirubin 0.5 (0.0-0.5) mg/dL AST 6 (5-37) U/L ALT < 6 (0-40) U/L Alkaline Phosphatase 97 (39-117) U/L Albumin 3.0 L (3.5-5.0) g/dL Microbiology Microbiology Results: Microbiology 10/31/22 14:48 Urine clean catch - Clean Catch Midstream Urine Culture - Final Proteus mirabilis 10/31/22 14:55 Blood - Venous Blood Culture - Preliminary No growth after 24 hours. 10/31/22 14:55 Blood - Venous Blood Culture - Preliminary No growth after 24 hours. Assessment and Plan (1) UTI (urinary tract infection): Status: Acute He appears to have some urinary hesitancy and proteus is growing He can have Ceftriaxone IV and then po Ceftin for a week. (2) CLL (chronic lymphocytic leukemia): Status: Acute (3) Superficial bruising of lower leg: Status: Acute I think there is more bruising than true cellulitis but can give po Doxycycline for a week with Ceftin for UTI. Time Spent With Patient Time: Total time managing care of this patient today ____ minutes.
--- NOTE | 2022-11-02 15:09 | PM.CNCAR ---
History of Present Illness History of Present Illness Date of Service: 11/02/22 Requesting physician: Edy Red / [facility] Chief complaint: weakness, anemia, chf Narrative: 87-year-old gentleman who has background history of CLL, chronic atrial fibrillation and congestive heart failure presenting with heart failure. He has dyspnea, peripheral edema, abdominal distension as well as fatigue. His echocardiography has shown severely dilated right ventricle with severely reduced function. He is saying he was previously told that 1 side of his heart is many weeks. Also found an MRI in [facility] which was done some time ago showing RV dysfunction and there was some concern for infiltrative cardiomyopathy with differentials of amyloidosis versus sarcoidosis. The patient is quite short of breath on examination. He has been on diuretics with negative fluid balance. For the chronic atrial fibrillation he has been on metoprolol and Eliquis. He follows with [facility] cardiology. [facility], [facility] Past Medical History Medical History (Updated 11/02/22 @ 19:50 by Binu Bates MD) Afib CHF (congestive heart failure) CLL (chronic lymphocytic leukemia) Gout Superficial bruising of lower leg UTI (urinary tract infection) Family History Family History Father CAD (coronary artery disease) Dementia Mother Dementia Family history: reviewed and not pertinent Social History Social History Household Members: None Housing: Assisted Living Facility Do you presently have visiting nurse or other home services: Yes Alcohol intake: never Patient Tobacco Use Status: Former Tobacco user Tobacco use type: Cigarette, Cigar and Pipe e-Cigarette/Vaping Use: Never Used Second Hand Smoke Exposure: No Advance Directives Date on File: 02/19/22 service: Yes Current occupational status: retired Meds Allergies Allergy/AdvReac Type Severity Reaction Status Date / Time No Known Allergies Allergy Verified 02/18/22 10:19 Active Medications: Current Medications Acetaminophen (Acetaminophen 325 Mg Tablet) 650 mg PO Q4H PRN PRN Reason: mild pain Albuterol Sulfate (Albuterol Sulfate 90 Mcg 8 Gm Inhaler) 2 puff INHALE RQ6H PRN PRN Reason: Wheezing Allopurinol (Allopurinol 300 Mg Tablet) 300 mg PO DAILY [facility] Last Admin: 11/02/22 07:40 Dose: 300 mg Apixaban (Apixaban 5 Mg Tablet) 5 mg PO BID [facility] Ascorbic Acid (Ascorbic Acid 500 Mg Tablet) 500 mg PO DAILY [facility] Last Admin: 11/02/22 07:40 Dose: 500 mg Digoxin (Digoxin 0.25 Mg Tablet) 0.25 mg PO Q6H [facility] Stop: 11/03/22 02:31 Digoxin (Digoxin 0.125 Mg Tablet) 0.125 mg PO MOWEFR [facility] Doxycycline Monohydrate (Doxycycline Monohydrate 100 Mg Capsule) 100 mg PO BID [facility] Last Admin: 11/02/22 07:40 Dose: 100 mg Fluticasone/Vilanterol (Fluticasone/Vilanterol 100/25 Blst.W.Dev) 1 puff INHALE RDAILY [facility] Last Admin: 11/02/22 12:30 Dose: 1 puff Furosemide (Furosemide 40 Mg/4 Ml Vial) 40 mg IVPUSH BID@0800,1700 [facility]; Protocol Last Admin: 11/02/22 07:41 Dose: 40 mg Hydroxyurea (Hydroxyurea 500 Mg Capsule) 500 mg PO DAILY [facility] Last Admin: 11/02/22 07:41 Dose: 500 mg Ceftriaxone Sodium 1 gm/ (Sodium Chloride) 50 mls @ 100 mls/hr IV Q24H [facility] Last Infusion: 11/02/22 11:33 Dose: Infused Morphine Sulfate (Morphine Sulfate 2 Mg/Ml Cartridge) 2 mg IVPUSH Q4H PRN; Protocol PRN Reason: severe pain Oxycodone HCl (Oxycodone Hcl Immed Release 5 Mg Tablet) 5 mg PO Q4H PRN PRN Reason: moderate pain Last Admin: 11/02/22 10:54 Dose: 5 mg Sodium Chloride (0.9 % Sodium Chloride Flush 3 Ml Syringe) 3 ml IVFLUSH QSHIFT [facility] Last Admin: 11/02/22 07:41 Dose: 3 ml Tamsulosin HCl (Tamsulosin Hcl 0.4 Mg Capsule) 0.4 mg PO DAILY [facility] Last Admin: 11/02/22 07:41 Dose: 0.4 mg Home Medications Medication Instructions Recorded Confirmed Last Taken Type albuterol sulfate 90 mcg/actuation 2 puff PO Q6H PRN Wheezing 02/18/22 10/31/22 10/31/22 History aerosol inhaler apixaban 5 mg tablet (Eliquis) 1 tab PO BID 02/18/22 10/31/22 10/31/22 History ascorbic acid (vitamin C) 500 mg 1 tab PO DAILY 02/18/22 10/31/22 10/31/22 History tablet fluticasone furoate 100 1 puff PO DAILY 02/18/22 10/31/22 10/31/22 History mcg-vilanterol 25 mcg/dose inhalation powder (Breo Ellipta) hydroxyurea 500 mg capsule 1 cap PO DAILY 02/18/22 10/31/22 10/31/22 History metoprolol tartrate 25 mg tablet 1.5 tab PO BID 02/18/22 10/31/22 10/31/22 History tamsulosin 0.4 mg capsule 1 cap PO DAILY 02/18/22 10/31/22 10/31/22 History torsemide 20 mg tablet 3 tab PO BID 02/18/22 10/31/22 10/31/22 History allopurinol 300 mg tablet 1 tab PO DAILY 10/31/22 10/31/22 10/31/22 History Physical Exam Vital Signs: Vital Signs: Last Vital Signs Temp 98.0 F 11/02/22 08:00 Pulse 78 11/02/22 12:32 Resp 15 11/02/22 12:32 BP 105/51 L 11/02/22 08:00 Pulse Ox 99 11/02/22 08:00 O2 Del Method 11/02/22 08:00 O2 Flow Rate 2 11/02/22 08:00 BMI result Body Mass Index 23.1 GENERAL APPEARANCE: Ill-appearing, cachectic, short of breath on supplemental oxygen NECK: no carotid bruit, mild jugular venous distention. SKIN: no suspicious lesions, warm and dry. HEART: no murmurs, irregular rate and rhythm. Left parasternal heave LUNGS: Diminished at bases ABDOMEN: Abdomen distended. No tenderness. EXTREMITIES: Bilateral edema. PERIPHERAL PULSES: equal. NEUROLOGIC: No gross deficits, AAO X 3 Objective Labs and Meds Result diagrams: 11/02/22 05:33 11/02/22 05:33 Lab results: Laboratory Results - last 24 hr 11/02/22 11/02/22 05:33 05:33 WBC 46.1 H* RBC 3.37 L Hgb 8.6 L Hct 29.2 L MCV 86.6 MCH 25.5 L MCHC 29.5 L RDW 19.6 H Plt Count 93 L MPV 10.5 Absolute Nucleated RBC 0.780 H Nucleated RBC % (auto) 1.7 H Sodium 142 Potassium 4.1 Chloride 106 Carbon Dioxide 26 Anion Gap 14 BUN 43 H Creatinine 1.47 H Estim Creat Clear Calc 37.9 Estimated GFR 46 Fasting Glucose 62 Calcium 7.9 L Magnesium 2.6 Total Bilirubin 1.6 H Direct Bilirubin 0.5 AST 6 ALT < 6 Alkaline Phosphatase 97 C-Reactive Protein 3.96 H Total Protein 5.1 L Albumin 3.0 L Imaging Radiologist's impression: Impressions Venous Duplex 11/01/22 13:30 IMPRESSION: No DVT demonstrated in the bilateral lower extremity. Assessment and Plan (1) Chronic a-fib: Status: Acute (2) RVF (right ventricular failure): Status: Acute Plan [age] gentleman who has background of CLL and chronic atrial fibrillation who is presenting with heart failure. Echocardiography showing severely dilated right ventricle and severe RV dysfunction. Overall he is quite symptomatic and short of breath. He has also has abdominal distension and he probably has some ascites. Agree with IV diuretics. My initial plan was to put him on digoxin and stop the metoprolol but after reviewing his MRI which raise concern for amyloidosis I have decided not to start him on digoxin. I think we should put him on Toprol-XL 25 mg once a day. Negative ionotropic agents can effect forward flow with RV dysfunction and may make him more fatigued and may affect his urine output. I think overall his prognosis is very poor. He needs to follow-up with his conference interpreter after discharge. Thank you for allowing me to participate in the care of your patient. Please feel free to contact me if you have any questions. Time Spent With Patient Time: Total time managing care of this patient today ____ minutes. Procedures Date of Service Date of Service: 11/02/22
[2022-11-02 15:21] VITALS: BP 107/64; PULSE 92; RESP 18; TEMP 36.5; O2SAT 97
[2022-11-02 18:09] VITALS: BP 86/58
[2022-11-02 19:17] VITALS: BP 96/50; PULSE 104; RESP 16; TEMP 36.3
[2022-11-02] MEDS: Apixaban 5 MG TABLET PO (22:29)
[2022-11-03] VITALS (7 sets, daily range): BP systolic 96–118; BP diastolic 52–64; PULSE 81–100; RESP 16–20; TEMP 36.3–36.6; O2SAT 94–100
[2022-11-03] MEDS: 0.9 % Sodium Chloride Flush 3 ML SYRINGE IVFLUSH ×3 (05:31→17:18)
[2022-11-03 06:15] LABS: Hematocrit 29.3 % (42.0-52.0); Hemoglobin 8.7 g/dl (14.0-18.0); Mean Corpuscular HGB Conc 29.7 g/dl (31.0-36.0); Mean Corpuscular Hemoglobin 25.6 pg (27.0-33.0); Mean Corpuscular Volume 86.2 fL (80.0-98.0); NRBC Pct Auto 0.9 /100WBC (0.0-0.2); Red Cell Distribution Width 19.8 % (11.0-16.0)
[2022-11-03 06:20] LABS: Anion Gap 12 (12-20); Blood Urea Nitrogen 43 mg/dL (9-16); Calcium 7.8 mg/dL (8.4-10.2); Carbon Dioxide 28 mmol/L (22-29); Chloride 102 mmol/L (96-108); Creatinine Clr Calc Pharmacy 41.3; Estimated Glomerular Filt Rate 50; Glucose Random 70 mg/dL (60-115); Magnesium 2.5 mg/dL (1.6-2.6); Potassium 3.9 mmol/L (3.3-5.1); Sodium 138 mmol/L (135-145)
[2022-11-03 06:30] LABS: B Type Natriuretic Peptide 518 pg/mL (<100)
[2022-11-03 06:40] LABS: White Blood Count 48.1 X10*3/uL (4.8-10.8)
[2022-11-03 06:41] LABS: Platelet Count 90 X10*3/uL (160-400)
[2022-11-03] MEDS: Fluticasone/Vilanterol 100/25 BLST.W.DEV 1 PUFF INHALE (08:12)
[2022-11-03] MEDS: Tamsulosin HCL 0.4 MG CAPSULE PO (10:25)
[2022-11-03] MEDS: oxyCODONE HCl Immed Release 5 MG TABLET PO (10:25)
[2022-11-03] MEDS: Doxycycline Monohydrate 100 MG CAPSULE PO ×2 (10:25→20:18)
[2022-11-03] MEDS: allopurinoL 300 MG TABLET PO (10:25)
[2022-11-03] MEDS: Metoprolol Succinate ER 25 MG TAB.ER.24H PO (10:25)
[2022-11-03] MEDS: Hydroxyurea 500 MG CAPSULE PO (10:25)
[2022-11-03] MEDS: Ascorbic Acid 500 MG TABLET PO (10:25)
[2022-11-03] MEDS: Furosemide 40 MG/4 ML VIAL IVPUSH (10:25)
[2022-11-03] MEDS: Apixaban 5 MG TABLET PO ×2 (10:26→20:19)
[2022-11-03] MEDS: cefTRIAXone sodium 1 GM in 0.9 % Sodium Chloride 50 ML IV (10:26)
--- NOTE | 2022-11-03 13:11 | HO.PM.IMPN ---
Subjective Subjective Date of Service: 11/03/22 Interval History: Dyspneic + hypoxic Not urinating much Review of Systems Review of Systems: Yes all other systems are reviewed and are negative Physical Exam Vital Signs: Vital Signs: Last Vital Signs Temp 98 F 11/03/22 07:12 Pulse 96 11/03/22 10:20 Resp 20 11/03/22 10:20 BP 113/55 L 11/03/22 10:20 Pulse Ox 100 11/03/22 10:20 O2 Del Method 11/03/22 10:20 O2 Flow Rate 2 11/03/22 10:20 BMI result Body Mass Index 23.1 Gen: short of breath with talking HEENT: sclera anicteric, moist mucus membranes Neck: supple Lungs: diminished L lower half Heart: irregularly irregular, no murmurs Abd: soft, non-tender, non-distended Ext: 1+ bilateral leg edema Skin: warm/well-perfused, multiple ecchymoses, bright erythema L mayo Neuro: alert and oriented x3, no focal findings Psych: appropriate affect Objective Data Active Medications Acetaminophen (Acetaminophen 325 Mg Tablet) 650 mg PO Q4H PRN PRN Reason: mild pain Albuterol Sulfate (Albuterol Sulfate 90 Mcg 8 Gm Inhaler) 2 puff INHALE RQ6H PRN PRN Reason: Wheezing Allopurinol (Allopurinol 300 Mg Tablet) 300 mg PO DAILY [facility] Last Admin: 11/03/22 10:25 Dose: 300 mg Documented By: HERNESTO Apixaban (Apixaban 5 Mg Tablet) 5 mg PO BID [facility] Last Admin: 11/03/22 10:26 Dose: 5 mg Documented By: HERNESTO Ascorbic Acid (Ascorbic Acid 500 Mg Tablet) 500 mg PO DAILY [facility] Last Admin: 11/03/22 10:25 Dose: 500 mg Documented By: HERNESTO Doxycycline Monohydrate (Doxycycline Monohydrate 100 Mg Capsule) 100 mg PO BID [facility] Last Admin: 11/03/22 10:25 Dose: 100 mg Documented By: HERNESTO Fluticasone/Vilanterol (Fluticasone/Vilanterol 100/25 Blst.W.Dev) 1 puff INHALE RDAILY [facility] Last Admin: 11/03/22 08:12 Dose: 1 puff Documented By: JOE Furosemide (Furosemide 40 Mg/4 Ml Vial) 80 mg IVPUSH BID@0800,1700 [facility]; Protocol Hydroxyurea (Hydroxyurea 500 Mg Capsule) 500 mg PO DAILY [facility] Last Admin: 11/03/22 10:25 Dose: 500 mg Documented By: HERNESTO Ceftriaxone Sodium 1 gm/ (Sodium Chloride) 50 mls @ 100 mls/hr IV Q24H [facility] Last Infusion: 11/03/22 11:42 Dose: 0 mls/hr Documented By: HERNESTO Metoprolol Succinate (Metoprolol Succinate Er 25 Mg Tab.Er.24h) 25 mg PO DAILY [facility]; Protocol Last Admin: 11/03/22 10:25 Dose: 25 mg Documented By: HERNESTO Morphine Sulfate (Morphine Sulfate 2 Mg/Ml Cartridge) 2 mg IVPUSH Q4H PRN; Protocol PRN Reason: severe pain Oxycodone HCl (Oxycodone Hcl Immed Release 5 Mg Tablet) 5 mg PO Q4H PRN PRN Reason: moderate pain Last Admin: 11/03/22 10:25 Dose: 5 mg Documented By: HERNESTO Sodium Chloride (0.9 % Sodium Chloride Flush 3 Ml Syringe) 3 ml IVFLUSH QSHIFT [facility] Last Admin: 11/03/22 10:26 Dose: 3 ml Documented By: HERNESTO Tamsulosin HCl (Tamsulosin Hcl 0.4 Mg Capsule) 0.4 mg PO DAILY [facility] Last Admin: 11/03/22 10:25 Dose: 0.4 mg Documented By: HERNESTO Labs CBC & Chem 7: 11/03/22 05:29 11/03/22 05:29 Labs: Laboratory Results - last 24 hr 11/03/22 11/03/22 11/03/22 05:29 05:29 05:29 MCV 86.2 MCH 25.6 L MCHC 29.7 L RDW 19.8 H Plt Count 90 L MPV Not Reportable Absolute Nucleated RBC 0.420 H Nucleated RBC % (auto) 0.9 H Anion Gap 12 Estim Creat Clear Calc 41.3 Estimated GFR 50 Random Glucose 70 Calcium 7.8 L Magnesium 2.5 B-Natriuretic Peptide 518 H Microbiology Microbiology Results: Microbiology 10/31/22 14:55 Blood Culture - Preliminary Blood - Venous No growth after 48 hours. 10/31/22 14:55 Blood Culture - Preliminary Blood - Venous No growth after 48 hours. Assessment and Plan (1) CLL (chronic lymphocytic leukemia): Status: Acute Plan d#3 87yo M with CLL, CHF, chronic AF admitted with CHF exacerbation, LLE cellulitis, ALEX, and UTI # acute-chronic R-sided HF - continue IV diuresis- increase dose of furosemide, TTE shows severe R-sided HF. Cardiology consultated. continue metoprolol but reduce dose # acute hypoxic resp failure - diurese + wean O2 as tolerated # LLE cellulitis - doxycycline d#3 # ALEX - likely cardiorenal, improving with diuresis # UTI, Proteus mirabilis - ceftriaxone d#3 # CLL with anemia + thrombocytopenia - Hb responded appropriately to 1u pRBCs. monitor CBC - continue hydroxyurea # chronic AF - continue apixaban + metoprolol tartrate # gout - continue allopurinol # BPH - continue tamsulosin # VTE ppx: apixaban # dispo: plan eventual home with VNA In my clinical judgment, the patient requires continued inpatient hospitalization for the following reasons: hypoxia, IV diuresis Time Spent With Patient Time: Total time managing care of this patient today ____ minutes. Quality Stroke Does the patient have a stroke diagnosis?: No VTE Prior VTE?: No VTE Risk Level:: Medical - moderate - high VTE Device Contraindication: Treatment Not Indicated VTE Drug Contraindication: N/A - Med Ordered
--- NOTE | 2022-11-03 14:50 | MHC.CM.PN ---
STILL SOB AND REQUIRES DIURETICS NO PLAN FOR DC TODAY
--- NOTE | 2022-11-03 16:50 | PM.PNCARD ---
Subjective Subjective Date of Service: 11/03/22 Interval history: Patient seen examined at bedside. He is saying he has been more short of breath overnight. Physical Exam Vital Signs: Last Vital Signs Temp 97.9 F 11/03/22 16:00 Pulse 93 11/03/22 16:00 Resp 20 11/03/22 16:00 BP 106/52 L 11/03/22 16:00 Pulse Ox 99 11/03/22 16:00 O2 Del Method 11/03/22 16:00 O2 Flow Rate 2 11/03/22 16:00 BMI result Body Mass Index 23.1 GENERAL APPEARANCE: Ill-appearing, cachectic, short of breath on supplemental oxygen NECK: no carotid bruit, mild jugular venous distention. SKIN: no suspicious lesions, warm and dry. HEART: no murmurs, irregular rate and rhythm. Left parasternal heave LUNGS: Diminished at bases ABDOMEN: Abdomen distended. No tenderness. EXTREMITIES: Bilateral edema. PERIPHERAL PULSES: equal. NEUROLOGIC: No gross deficits, AAO X 3 Objective Labs and Meds Result diagrams: 11/03/22 05:29 11/03/22 05:29 Lab results: Laboratory Results - last 24 hr 11/03/22 11/03/22 11/03/22 05:29 05:29 05:29 WBC 48.1 H* RBC 3.40 L Hgb 8.7 L Hct 29.3 L MCV 86.2 MCH 25.6 L MCHC 29.7 L RDW 19.8 H Plt Count 90 L MPV Not Reportable Absolute Nucleated RBC 0.420 H Nucleated RBC % (auto) 0.9 H Sodium 138 Potassium 3.9 Chloride 102 Carbon Dioxide 28 Anion Gap 12 BUN 43 H Creatinine 1.35 Estim Creat Clear Calc 41.3 Estimated GFR 50 Random Glucose 70 Calcium 7.8 L Magnesium 2.5 B-Natriuretic Peptide 518 H Imaging Radiologist's impression: Impressions Chest X-Ray 11/03/22 11:22 IMPRESSION: Persistent moderate left pleural effusion. Worsening hazy bilateral opacities. Progress Note: A&P Assessment and plan (1) RVF (right ventricular failure): Status: Acute Plan [age] gentleman with chronic atrial fibrillation and right heart failure. Etiology of right heart failure is unclear. He is fairly short of breath and also has abdominal distension and I think he has some ascites too. His Lasix was increased to 80 mg twice a day. I will give him 5 mg of metolazone along with that. His beta-mode dose was decreased to see if that helps with forward flow given severe RV dysfunction. He has some concerns about cardiac amyloid based on cardiac MRI in the past. Ideally I would abuse digoxin in the set up but given the history of amyloid I will avoid using digoxin. Continue Toprol-XL 25 mg once a day. His blood pressure is little better since with the beta-mode dose is decreased. If he does not diurese well then I may have to stop the beta-mode completely. We will tolerate some faster atrial fibrillation rates and may be fast heart rate will help his hemodynamics. Thank you for allowing me to participate in the care of your patient. Please feel free to contact me if you have any questions. Time Spent With Patient Time: Total time managing care of this patient today ____ minutes. Progress Note: Quality Stroke Does the patient have a stroke diagnosis?: No Procedures Date of Service Date of Service: 11/03/22
[2022-11-03] MEDS: Furosemide 40 MG/4 ML VIAL 80 MG IVPUSH (17:18)
[2022-11-03] MEDS: metOLazone 5 MG TABLET PO (17:39)
[2022-11-04] VITALS (7 sets, daily range): BP systolic 104–142; BP diastolic 50–67; PULSE 82–112; RESP 14–20; TEMP 36.1–36.7; O2SAT 95–100
[2022-11-04] MEDS: 0.9 % Sodium Chloride Flush 3 ML SYRINGE IVFLUSH ×4 (00:48→21:18)
[2022-11-04 06:35] LABS: Red Cell Distribution Width 19.6 % (11.0-16.0)
[2022-11-04 06:37] LABS: Hematocrit 27.1 % (42.0-52.0); Hemoglobin 8.2 g/dl (14.0-18.0); Mean Corpuscular HGB Conc 30.3 g/dl (31.0-36.0); Mean Corpuscular Hemoglobin 25.6 pg (27.0-33.0); Mean Corpuscular Volume 84.7 fL (80.0-98.0); NRBC Pct Auto 0.6 /100WBC (0.0-0.2)
[2022-11-04 06:42] LABS: B Type Natriuretic Peptide 467 pg/mL (<100)
[2022-11-04 06:47] LABS: Anion Gap 13 (12-20); Blood Urea Nitrogen 50 mg/dL (9-16); Calcium 7.6 mg/dL (8.4-10.2); Carbon Dioxide 28 mmol/L (22-29); Chloride 100 mmol/L (96-108); Creatinine Clr Calc Pharmacy 42.2; Estimated Glomerular Filt Rate 52; Glucose Random 75 mg/dL (60-115); Magnesium 2.3 mg/dL (1.6-2.6); Potassium 3.2 mmol/L (3.3-5.1); Sodium 138 mmol/L (135-145)
[2022-11-04 08:21] LABS: PLT ABN DIST 1; Platelet Count 87 X10*3/uL (160-400); White Blood Count 40.5 X10*3/uL (4.8-10.8)
[2022-11-04] MEDS: Fluticasone/Vilanterol 100/25 BLST.W.DEV 1 PUFF INHALE (09:21)
--- NOTE | 2022-11-04 10:01 | MHC.CDI.CONC ---
CDI Concurrent Query Documentation Clarification: PHYSICIAN'S DOCUMENTATION REQUEST Date of Query: 11/04/22 1001 Patient Name: Zenon Lee Admit Date: 11/01/22 Dear Doctor, A review of the medical record indicates additional documentation may be needed. Please review below and update the documentation accordingly. Clinical Indicators: Is there a diagnosis that correlates with the findings below: The patient's infectious clinical indicators include: Risk Factors/Clinical Indicators/Treatments POA/TREAT/RESOLVED/RULE OUT -WBCs on 11/03: 48.1 -HR: 11/01 -RR: 10/31 Other indicators: -Patient being treated for UTI -Patient being treated for cellulitis -Per provider note on 11/03: Patient dyspneic + hypoxic Recognized standard criteria for this condition and other infectious definitions includes: Sepsis Systemic manifestations of infection, with 2 or more SIRS criteria which include: Fever > 100.4?F or hypothermia < 96.8?F Leukocytosis ? WBC > 12,000 or leukopenia, WBC < 4,000, or > 10% bands Tachycardia- > 90 beats/minute Tachypnea- RR > 20 breaths/minute or PaCO2 < 32mmHg Source: Merck Manual 2013 Documentation should include the known or suspected organism, and the underlying infection, such as UTI or pneumonia Severe Sepsis Sepsis with associated acute organ dysfunction, such as renal or respiratory failure Documentation should indicate the association between the sepsis and the organ dysfunction Septic Shock Severe sepsis with associated with circulatory failure, evidenced by hypotension and hypoperfusion Based on the above information and the recognized standard for sepsis, could you please clarify in the Progress Notes if this diagnoses is still accurate and reflective of the patient's condition to ensure quality of the medical record. Sepsis is/was present and is a clinical diagnosis based on (please include this additional support in the medical record) After study (the condition) has been ruled out Other (please specify) Unable to determine Use of terms such as suspected, likely, concern for, or probable (associated with a specific diagnosis that is being evaluated, monitored, or treated as if it exists) are acceptable and can be coded in the inpatient setting, when documented at the time of discharge. Thank you, Nevin Denson, MS, RN, CCRN Extension: [phone] Please use your independent medical judgment in providing your response. THIS QUERY IS PART OF THE PERMANENT MEDICAL RECORD Provider Response: Other Other Diagnosis: not septic. has CLL
[2022-11-04] MEDS: cefTRIAXone sodium 1 GM in 0.9 % Sodium Chloride 50 ML IV (10:26)
[2022-11-04] MEDS: Doxycycline Monohydrate 100 MG CAPSULE PO ×2 (10:30→21:18)
[2022-11-04] MEDS: Potassium Chloride ER 20 MEQ TAB.ER.PRT 40 MEQ PO (10:30)
[2022-11-04] MEDS: Hydroxyurea 500 MG CAPSULE PO (10:30)
[2022-11-04] MEDS: Metoprolol Succinate ER 25 MG TAB.ER.24H PO (10:31)
[2022-11-04] MEDS: allopurinoL 300 MG TABLET PO (10:31)
[2022-11-04] MEDS: Ascorbic Acid 500 MG TABLET PO (10:31)
[2022-11-04] MEDS: Tamsulosin HCL 0.4 MG CAPSULE PO (10:31)
[2022-11-04] MEDS: Apixaban 5 MG TABLET PO ×2 (10:31→21:17)
--- NOTE | 2022-11-04 12:35 | HO.PM.IMPN ---
Subjective Subjective Date of Service: 11/04/22 Interval History: still quite dyspneic; negative 795 mL this admission abd swelling as well Review of Systems Review of Systems: Yes all other systems are reviewed and are negative Physical Exam Vital Signs: Vital Signs: Last Vital Signs Temp 98.1 F 11/04/22 08:00 Pulse 82 11/04/22 11:11 Resp 16 11/04/22 09:22 BP 105/51 L 11/04/22 08:00 Pulse Ox 96 11/04/22 08:00 O2 Del Method 11/04/22 08:00 O2 Flow Rate 2 11/04/22 08:00 BMI result Body Mass Index 23.1 Gen: short of breath with talking HEENT: sclera anicteric, moist mucus membranes Neck: supple Lungs: diminished L lower half Heart: irregularly irregular, no murmurs Abd: swollen Ext: 2+ bilateral leg edema Skin: warm/well-perfused, multiple ecchymoses, bright erythema L mayo Neuro: alert and oriented x3, no focal findings Psych: appropriate affect Objective Data Active Medications Acetaminophen (Acetaminophen 325 Mg Tablet) 650 mg PO Q4H PRN PRN Reason: mild pain Albuterol Sulfate (Albuterol Sulfate 90 Mcg 8 Gm Inhaler) 2 puff INHALE RQ6H PRN PRN Reason: Wheezing Allopurinol (Allopurinol 300 Mg Tablet) 300 mg PO DAILY [facility] Last Admin: 11/04/22 10:31 Dose: 300 mg Documented By: HERNESTO Apixaban (Apixaban 5 Mg Tablet) 5 mg PO BID [facility] Last Admin: 11/04/22 10:31 Dose: 5 mg Documented By: HERNESTO Ascorbic Acid (Ascorbic Acid 500 Mg Tablet) 500 mg PO DAILY [facility] Last Admin: 11/04/22 10:31 Dose: 500 mg Documented By: HERNESTO Doxycycline Monohydrate (Doxycycline Monohydrate 100 Mg Capsule) 100 mg PO BID [facility] Last Admin: 11/04/22 10:30 Dose: 100 mg Documented By: HERNESTO Fluticasone/Vilanterol (Fluticasone/Vilanterol 100/25 Blst.W.Dev) 1 puff INHALE RDAILY [facility] Last Admin: 11/04/22 09:21 Dose: 1 puff Documented By: DAMION Hydroxyurea (Hydroxyurea 500 Mg Capsule) 500 mg PO DAILY [facility] Last Admin: 11/04/22 10:30 Dose: 500 mg Documented By: HERNESTO Ceftriaxone Sodium 1 gm/ (Sodium Chloride) 50 mls @ 100 mls/hr IV Q24H [facility] Last Infusion: 11/04/22 11:10 Dose: 0 mls/hr Documented By: HERNESTO Furosemide 200 mg/ Sodium (Chloride) 100 mls @ 5 mls/hr IVCONT .Q20H [facility] Metoprolol Succinate (Metoprolol Succinate Er 25 Mg Tab.Er.24h) 25 mg PO DAILY [facility]; Protocol Last Admin: 11/04/22 10:31 Dose: 25 mg Documented By: HERNESTO Morphine Sulfate (Morphine Sulfate 2 Mg/Ml Cartridge) 2 mg IVPUSH Q4H PRN; Protocol PRN Reason: severe pain Oxycodone HCl (Oxycodone Hcl Immed Release 5 Mg Tablet) 5 mg PO Q4H PRN PRN Reason: moderate pain Last Admin: 11/03/22 10:25 Dose: 5 mg Documented By: HERNESTO Sodium Chloride (0.9 % Sodium Chloride Flush 3 Ml Syringe) 3 ml IVFLUSH QSHIFT [facility] Last Admin: 11/04/22 10:27 Dose: 3 ml Documented By: HERNESTO Tamsulosin HCl (Tamsulosin Hcl 0.4 Mg Capsule) 0.4 mg PO DAILY [facility] Last Admin: 11/04/22 10:31 Dose: 0.4 mg Documented By: HERNESTO Labs CBC & Chem 7: 11/04/22 05:48 11/04/22 05:48 Labs: Laboratory Results - last 24 hr 11/04/22 11/04/22 11/04/22 05:48 05:48 05:48 MCV 84.7 MCH 25.6 L MCHC 30.3 L RDW 19.6 H Plt Count 87 L MPV Not Reportable Absolute Nucleated RBC 0.260 H Nucleated RBC % (auto) 0.6 H Anion Gap 13 Estim Creat Clear Calc 42.2 Estimated GFR 52 Random Glucose 75 Calcium 7.6 L Magnesium 2.3 B-Natriuretic Peptide 467 H Assessment and Plan (1) CLL (chronic lymphocytic leukemia): Status: Acute Plan d#4 87yo M with CLL, CHF, chronic AF admitted with CHF exacerbation, LLE cellulitis, ALEX, and UTI # acute-chronic R-sided HF - given metolazone yesterday. switch IV furosemide to continuous infusion. TTE shows severe R-sided HF. Cardiology consulted; continue metoprolol but reduce dose. monitor electrlytes, BNP - check abd US- ?ascites # hypoK - replete, recheck # acute hypoxic resp failure - diurese + wean O2 as tolerated # LLE cellulitis - doxycycline d#4 # ALEX - likely cardiorenal, improving with diuresis # UTI, Proteus mirabilis - ceftriaxone d#4 # CLL with anemia + thrombocytopenia + leukocytosis - Hb responded appropriately to 1u pRBCs. monitor CBC - continue hydroxyurea - not septic # chronic AF - continue apixaban + metoprolol tartrate # gout - continue allopurinol # BPH - continue tamsulosin # VTE ppx: apixaban # dispo: plan eventual home with VNA In my clinical judgment, the patient requires continued inpatient hospitalization for the following reasons: hypoxia, IV diuresis Time Spent With Patient Time: Total time managing care of this patient today __34__ minutes. Quality Stroke Does the patient have a stroke diagnosis?: No VTE Prior VTE?: No VTE Risk Level:: Medical - moderate - high VTE Device Contraindication: Treatment Not Indicated VTE Drug Contraindication: N/A - Med Ordered
[2022-11-04] MEDS: Furosemide 200 MG in 0.9 % Sodium Chloride 80 ML IVCONT (13:15)
--- NOTE | 2022-11-04 15:54 | PM.HEMONCCN ---
Subjective - Subjective Chief complaint: Shortness of breath Patient: new to practice Consult date: 11/04/22 Requesting Physician: Dr. Red Primary Care Provider: Zeferino Cruz MD HPI - Consult Narrative Reason for consult: history of CLL ? Narrative: Zenon Lee is a 87 year old male with multiple medical problems including leukemia and congestive heart failure who is admitted for recurrent symptoms of CHF. For his leukemia, he is taken care of by Dr. Hahn at . He says he was diagnosed 4 years ago and has been on combination of hydroxyurea and allopurinol for all this time. He has had splenomegaly for at least 2 years. He was told that is CLL has not improved nor gotten any worse. He has had multiple admissions to the hospital for congestive heart failure as well as recurrent infections. He presented to the ED on 11/01/2022 with complaints of shortness of breath, weakness and lower extremity edema. He is being diuresed, he says that he is feeling about the same. He reports no improvement in his symptoms. Review of Systems - Constitutional Reports as per [facility] Medical History: Medical History (Last Reviewed 11/03/22 @ 10:51 by Daja Guzman, NEGRO) Afib CHF (congestive heart failure) CLL (chronic lymphocytic leukemia) Gout Superficial bruising of lower leg UTI (urinary tract infection) Family History: Family History (Last Reviewed 11/02/22 @ 14:25 by Betzaida Lindsey MD) Father CAD (coronary artery disease) Dementia Mother Dementia Family history: reviewed and not pertinent Social History: Social History (Last Reviewed 11/02/22 @ 14:25 by Betzaida Lindsey MD) Living Situation History: Household Members: None Housing: Assisted Living Facility Do you presently have visiting nurse or other home services: Yes Tobacco History: Patient Tobacco Use Status: Former Tobacco user Tobacco use type: Cigarette Tobacco use type: Cigar Tobacco use type: Pipe e-Cigarette/Vaping Use: Never Used Second Hand Smoke Exposure: No Advance Directives: Advance Directives Date on File: 02/19/22 Occupation Assessmet: service: Yes Current occupational status: retired Home Medications and Allergies Current Medications: Current Medications Acetaminophen (Acetaminophen 325 Mg Tablet) 650 mg PO Q4H PRN PRN Reason: mild pain Albuterol Sulfate (Albuterol Sulfate 90 Mcg 8 Gm Inhaler) 2 puff INHALE RQ6H PRN PRN Reason: Wheezing Allopurinol (Allopurinol 300 Mg Tablet) 300 mg PO DAILY [facility] Last Admin: 11/04/22 10:31 Dose: 300 mg Apixaban (Apixaban 5 Mg Tablet) 5 mg PO BID [facility] Last Admin: 11/04/22 10:31 Dose: 5 mg Ascorbic Acid (Ascorbic Acid 500 Mg Tablet) 500 mg PO DAILY [facility] Last Admin: 11/04/22 10:31 Dose: 500 mg Doxycycline Monohydrate (Doxycycline Monohydrate 100 Mg Capsule) 100 mg PO BID [facility] Last Admin: 11/04/22 10:30 Dose: 100 mg Fluticasone/Vilanterol (Fluticasone/Vilanterol 100/25 Blst.W.Dev) 1 puff INHALE RDAILY [facility] Last Admin: 11/04/22 09:21 Dose: 1 puff Hydroxyurea (Hydroxyurea 500 Mg Capsule) 500 mg PO DAILY [facility] Last Admin: 11/04/22 10:30 Dose: 500 mg Ceftriaxone Sodium 1 gm/ (Sodium Chloride) 50 mls @ 100 mls/hr IV Q24H [facility] Last Infusion: 11/04/22 11:10 Dose: Infused Furosemide 200 mg/ Sodium (Chloride) 100 mls @ 5 mls/hr IVCONT .Q20H [facility] Last Admin: 11/04/22 13:15 Dose: 10 mg/hr, 5 mls/hr Metoprolol Succinate (Metoprolol Succinate Er 25 Mg Tab.Er.24h) 25 mg PO DAILY [facility]; Protocol Last Admin: 11/04/22 10:31 Dose: 25 mg Morphine Sulfate (Morphine Sulfate 2 Mg/Ml Cartridge) 2 mg IVPUSH Q4H PRN; Protocol PRN Reason: severe pain Oxycodone HCl (Oxycodone Hcl Immed Release 5 Mg Tablet) 5 mg PO Q4H PRN PRN Reason: moderate pain Last Admin: 11/03/22 10:25 Dose: 5 mg Sodium Chloride (0.9 % Sodium Chloride Flush 3 Ml Syringe) 3 ml IVFLUSH QSHIFT [facility] Last Admin: 11/04/22 10:27 Dose: 3 ml Tamsulosin HCl (Tamsulosin Hcl 0.4 Mg Capsule) 0.4 mg PO DAILY [facility] Last Admin: 11/04/22 10:31 Dose: 0.4 mg Home Medications Medication Instructions Recorded Confirmed Type albuterol sulfate 90 mcg/actuation 2 puff PO Q6H PRN Wheezing 02/18/22 10/31/22 History aerosol inhaler apixaban 5 mg tablet (Eliquis) 1 tab PO BID 02/18/22 10/31/22 History ascorbic acid (vitamin C) 500 mg 1 tab PO DAILY 02/18/22 10/31/22 History tablet fluticasone furoate 100 1 puff PO DAILY 02/18/22 10/31/22 History mcg-vilanterol 25 mcg/dose inhalation powder (Breo Ellipta) hydroxyurea 500 mg capsule 1 cap PO DAILY 02/18/22 10/31/22 History metoprolol tartrate 25 mg tablet 1.5 tab PO BID 02/18/22 10/31/22 History tamsulosin 0.4 mg capsule 1 cap PO DAILY 02/18/22 10/31/22 History torsemide 20 mg tablet 3 tab PO BID 02/18/22 10/31/22 History allopurinol 300 mg tablet 1 tab PO DAILY 10/31/22 10/31/22 History Allergies Allergy/AdvReac Type Severity Reaction Status Date / Time No Known Allergies Allergy Verified 02/18/22 10:19 Physical Exam Vital signs: Vital Signs Temp 98.1 F 11/04/22 08:00 Pulse 104 H 11/04/22 12:59 Resp 20 11/04/22 12:59 BP 117/55 L 11/04/22 12:59 Pulse Ox 100 11/04/22 12:59 O2 Del Method 11/04/22 12:59 O2 Flow Rate 3 11/04/22 12:59 Intake & Output 11/03/22 11/04/22 11/04/22 18:59 06:59 18:59 Intake Total 50 / 930 880 / 930 770 / 770 Output Total 75 / 1595 1520 / 1595 650 / 650 Balance -25 / -665 -640 / -665 120 / 120 Urine Output (Average ml/kg/hr) 0.09 1.73 0.74 Intake: Intake, Oral Amount 880 / 880 720 / 720 Intake, IV Amount 50 / 50 50 / 50 cefTRIAXone sodium 1 gm In 0.9 50 / 50 50 / 50 % Sodium Chloride 50 ml @ 100 mls/hr IV Q24H [facility] Rx#: [id number] Output: Output, Urine Amount 75 / 1595 1520 / 1595 650 / 650 Other: Meal Refused No NPO No Breakfast % Eaten 100% 100% Lunch % Eaten 100% 100% Dinner % Eaten 100% Number of Bowel Movements 0 1 Urine Urinal [place] Urine Color Yellow Yellow Last Bowel Movement 11/03/22 11/04/22 Stool Bedside Commode Bedside Commode Stool Amount Moderate Large Stool Color Brown Brown Stool Consistency Formed Formed Weight 73.3 kg - Constitutional Present: mild distress, thin, cachectic - Routine HEENT Exam Head: Present: normal inspection Eye: Present: EOMI - Routine Neck Exam Absent: lymphadenopathy - Routine Respiratory Exam Absent: accessory muscle use - Routine Cardiovascular Exam Cardiovascular: Present: S1, S2 - Routine Abdominal Exam Present: distended, mass, organomegaly - Routine Extremities Exam Present: pedal edema - Routine Skin Exam Present: erythema - Routine Neurological Exam Present: alert, oriented X3 Hem/Onc Consult Result - Labs CBC & Chem 7: 11/04/22 05:48 11/04/22 05:48 Labs: Short CBC 11/04/22 Range/Units 05:48 WBC 40.5 H* (4.8-10.8) X10*3/uL Hgb 8.2 L (14.0-18.0) g/dl Hct 27.1 L (42.0-52.0) % Plt Count 87 L (160-400) X10*3/uL [facility] 11/04/22 05:48 Sodium 138 Potassium 3.2 L Chloride 100 Carbon Dioxide 28 BUN 50 H D Creatinine 1.32 Calcium 7.6 L Assessment and Plan Patient Active problem list reviewed?: Yes (1) Leucocytosis Status: Acute Assessment and plan: This is 87-year-old male with Leucocytosis and and multiple other medical problems chiefly congestive heart failure and recurrent cellulitis/ infection who is admitted for shortness of breath /CHF. He was diagnosed with chronic leukemia about 4 years ago and has been under the care of Dr. Hahn from . He says ever since his diagnosis he has been maintained on hydroxyurea and allopurinol. He has had 2 bone marrow biopsies over the years. He was told that his cancer had not progressed neither had it improved. He has had massive splenomegaly for at least 2 years. He has not been able to follow-up with his primary tax evaluator for several months because of recurrent hospitalizations in the last 1 year. Compared to February 2022, his blood work shows stable WBC count although his platelets have gone down which could be related to hypersplenism. Peripheral smear shows neutrophilic leukocytosis without significant smudge cells seen in CLL. I am not sure of his diagnosis, CMML is a possibility. I have placed a call to his primary tax evaluator. No acute intervention for his hematological problem is necessary at this time. I thank you for the consult - Time Spent With Patient Time Spent with Patient (in minutes): 20
[2022-11-04] MEDS: oxyCODONE HCl Immed Release 5 MG TABLET PO (21:20)
[2022-11-05 04:00] VITALS: BP 103/52; PULSE 106; RESP 16; TEMP 36.8; O2SAT 97
[2022-11-05] MEDS: Furosemide 200 MG in 0.9 % Sodium Chloride 80 ML IVCONT (06:24)
[2022-11-05 07:07] VITALS: BP 109/51; PULSE 98; RESP 17; TEMP 36.8; O2SAT 93
[2022-11-05 07:39] LABS: B Type Natriuretic Peptide 520 pg/mL (<100)
[2022-11-05 07:41] LABS: Anion Gap 13 (12-20); Blood Urea Nitrogen 49 mg/dL (9-16); Calcium 7.8 mg/dL (8.4-10.2); Carbon Dioxide 30 mmol/L (22-29); Chloride 99 mmol/L (96-108); Creatinine Clr Calc Pharmacy 44.6; Estimated Glomerular Filt Rate 55; Glucose Random 72 mg/dL (60-115); Magnesium 2.3 mg/dL (1.6-2.6); Sodium 139 mmol/L (135-145)
--- NOTE | 2022-11-05 08:43 | PM.EVENT ---
I have spoken to his primary talent acquisition lead, Dr. Hahn. 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 He has been on hydrea, has had no response. He agrees stopping hydrea may be best at this time since it can worsen anemia/thrombocytopenia. His prognosis is poor.
[2022-11-05 09:16] VITALS: PULSE 93; RESP 18; O2SAT 94
[2022-11-05] MEDS: Fluticasone/Vilanterol 100/25 BLST.W.DEV 1 PUFF INHALE (09:16)
[2022-11-05] MEDS: Metoprolol Succinate ER 25 MG TAB.ER.24H PO (09:22)
[2022-11-05] MEDS: Doxycycline Monohydrate 100 MG CAPSULE PO ×2 (09:22→20:57)
[2022-11-05] MEDS: Potassium Chloride ER 20 MEQ TAB.ER.PRT 40 MEQ PO (09:22)
[2022-11-05] MEDS: allopurinoL 300 MG TABLET PO (09:22)
[2022-11-05] MEDS: cefTRIAXone sodium 1 GM in 0.9 % Sodium Chloride 50 ML IV (09:22)
[2022-11-05] MEDS: Hydroxyurea 500 MG CAPSULE PO (09:22)
[2022-11-05] MEDS: Ascorbic Acid 500 MG TABLET PO (09:22)
[2022-11-05] MEDS: Tamsulosin HCL 0.4 MG CAPSULE PO (09:22)
[2022-11-05] MEDS: 0.9 % Sodium Chloride Flush 3 ML SYRINGE IVFLUSH ×2 (09:23→21:00)
--- NOTE | 2022-11-05 10:06 | HO.PM.IMPN ---
Subjective Subjective Date of Service: 11/05/22 Interval History: still quite dyspneic legs swollen no fever Review of Systems Review of Systems: Yes all other systems are reviewed and are negative Physical Exam Vital Signs: Vital Signs: Last Vital Signs Temp 98.2 F 11/05/22 07:07 Pulse 93 11/05/22 09:16 Resp 18 11/05/22 09:16 BP 109/51 L 11/05/22 07:07 Pulse Ox 93 11/05/22 07:07 O2 Del Method 11/05/22 07:07 O2 Flow Rate 2 11/05/22 04:00 BMI result Body Mass Index 23.1 Gen: short of breath with talking HEENT: sclera anicteric, moist mucus membranes Neck: supple Lungs: diminished L lower half Heart: irregularly irregular, no murmurs Abd: massive splenomegaly Ext: 2+ bilateral doughy leg edema Skin: warm/well-perfused, multiple ecchymoses, bright erythema L mayo Neuro: alert and oriented x3, no focal findings Psych: appropriate affect ? Objective Data Active Medications Acetaminophen (Acetaminophen 325 Mg Tablet) 650 mg PO Q4H PRN PRN Reason: mild pain Albuterol Sulfate (Albuterol Sulfate 90 Mcg 8 Gm Inhaler) 2 puff INHALE RQ6H PRN PRN Reason: Wheezing Allopurinol (Allopurinol 300 Mg Tablet) 300 mg PO DAILY [facility] Last Admin: 11/05/22 09:22 Dose: 300 mg Documented By: LYN Apixaban (Apixaban 5 Mg Tablet) 5 mg PO BID [facility] Last Admin: 11/05/22 09:23 Dose: Not Given Documented By: LYN Non-Admin Reason: Physician Held Med Ascorbic Acid (Ascorbic Acid 500 Mg Tablet) 500 mg PO DAILY [facility] Last Admin: 11/05/22 09:22 Dose: 500 mg Documented By: LYN Doxycycline Monohydrate (Doxycycline Monohydrate 100 Mg Capsule) 100 mg PO BID [facility] Last Admin: 11/05/22 09:22 Dose: 100 mg Documented By: LYN Fluticasone/Vilanterol (Fluticasone/Vilanterol 100/25 Blst.W.Dev) 1 puff INHALE RDAILY [facility] Last Admin: 11/05/22 09:16 Dose: 1 puff Documented By: PEDRO Hydroxyurea (Hydroxyurea 500 Mg Capsule) 500 mg PO DAILY [facility] Last Admin: 11/05/22 09:22 Dose: 500 mg Documented By: LYN Ceftriaxone Sodium 1 gm/ (Sodium Chloride) 50 mls @ 100 mls/hr IV Q24H [facility] Last Admin: 11/05/22 09:22 Dose: 100 mls/hr Documented By: LYN Furosemide 200 mg/ Sodium (Chloride) 100 mls @ 5 mls/hr IVCONT .Q20H [facility] Last Admin: 11/05/22 06:24 Dose: 10 mg/hr, 5 mls/hr Documented By: CECILIA Metoprolol Succinate (Metoprolol Succinate Er 25 Mg Tab.Er.24h) 25 mg PO DAILY [facility]; Protocol Last Admin: 11/05/22 09:22 Dose: 25 mg Documented By: LYN Morphine Sulfate (Morphine Sulfate 2 Mg/Ml Cartridge) 2 mg IVPUSH Q4H PRN; Protocol PRN Reason: severe pain Oxycodone HCl (Oxycodone Hcl Immed Release 5 Mg Tablet) 5 mg PO Q4H PRN PRN Reason: moderate pain Last Admin: 11/04/22 21:20 Dose: 5 mg Documented By: RON Potassium Chloride (Potassium Chloride Er 20 Meq Tab.Er.Prt) 40 meq PO DAILY [facility] Last Admin: 11/05/22 09:22 Dose: 40 meq Documented By: LYN Sodium Chloride (0.9 % Sodium Chloride Flush 3 Ml Syringe) 3 ml IVFLUSH QSHIFT [facility] Last Admin: 11/05/22 09:23 Dose: 3 ml Documented By: LYN Tamsulosin HCl (Tamsulosin Hcl 0.4 Mg Capsule) 0.4 mg PO DAILY [facility] Last Admin: 11/05/22 09:22 Dose: 0.4 mg Documented By: LYN Labs CBC & Chem 7: 11/04/22 05:48 11/05/22 06:30 Labs: Laboratory Results - last 24 hr 11/05/22 11/05/22 06:30 06:30 Anion Gap 13 Estim Creat Clear Calc 44.6 Estimated GFR 55 Random Glucose 72 Calcium 7.8 L Magnesium 2.3 B-Natriuretic Peptide 520 H Echocardiogram Interpretation: Impressions Abdomen Ultrasound 11/04/22 14:00 IMPRESSION: There is hepatosplenomegaly with marked splenomegaly. Bilateral pleural effusions. Mild bilateral renal cortical thinning may suggest parenchymal renal disease. 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 TTE shows severe R-sided HF. Cardiology consulted; continue metoprolol but reduced dose. 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 monitor CBC - no response to hydroxyurea, d/c per Heme/Onc - not septic # chronic AF - continue metoprolol tartrate - hold apixaban, give enoxaprain # gout - continue allopurinol # BPH - continue tamsulosin # VTE ppx: apixaban -> enoxaparin # dispo: plan eventual home with VNA In my clinical judgment, the patient requires continued inpatient hospitalization for the following reasons: hypoxia, IV diuresis Time Spent With Patient Time: Total time managing care of this patient today ____ minutes. Quality Stroke Does the patient have a stroke diagnosis?: No VTE Prior VTE?: No VTE Risk Level:: Medical - moderate - high VTE Device Contraindication: Treatment Not Indicated VTE Drug Contraindication: N/A - Med Ordered
[2022-11-05] MEDS: Spironolactone 25 MG TABLET PO (12:26)
[2022-11-05 16:00] VITALS: BP 121/58; PULSE 86; RESP 20; TEMP 36.4; O2SAT 95
[2022-11-05] MEDS: oxyCODONE HCl Immed Release 5 MG TABLET PO (16:04)
[2022-11-05] MEDS: Acetaminophen 325 MG TABLET 650 MG PO (16:04)
[2022-11-05 19:47] VITALS: BP 122/67; PULSE 82; RESP 20; TEMP 36.9; O2SAT 97
[2022-11-06] MEDS: Furosemide 200 MG in 0.9 % Sodium Chloride 80 ML IVCONT ×2 (01:03→22:53)
[2022-11-06 03:16] VITALS: BP 98/53; PULSE 96; RESP 18; TEMP 36.1; O2SAT 99
[2022-11-06 06:56] LABS: Hematocrit 28.3 % (42.0-52.0); Hemoglobin 8.4 g/dl (14.0-18.0); Mean Corpuscular HGB Conc 29.7 g/dl (31.0-36.0); Mean Corpuscular Hemoglobin 24.9 pg (27.0-33.0); Mean Corpuscular Volume 83.7 fL (80.0-98.0); NRBC Pct Auto 0.4 /100WBC (0.0-0.2); Red Blood Count 3.38 X10*6/uL (4.60-5.80); Red Cell Distribution Width 19.7 % (11.0-16.0)
[2022-11-06 07:15] LABS: Anion Gap 13 (12-20); Blood Urea Nitrogen 56 mg/dL (9-16); Calcium 7.9 mg/dL (8.4-10.2); Carbon Dioxide 33 mmol/L (22-29); Chloride 95 mmol/L (96-108); Creatinine Clr Calc Pharmacy 40.7; Estimated Glomerular Filt Rate 49; Glucose Random 80 mg/dL (60-115); Magnesium 2.2 mg/dL (1.6-2.6); Potassium 3.5 mmol/L (3.3-5.1); Sodium 137 mmol/L (135-145)
[2022-11-06 07:22] LABS: B Type Natriuretic Peptide 507 pg/mL (<100)
[2022-11-06 07:24] LABS: Platelet Count 99 X10*3/uL (160-400)
[2022-11-06 07:29] LABS: White Blood Count 35.3 X10*3/uL (4.8-10.8)
[2022-11-06 07:32] LABS: Band Neutrophils Percent 2 % (3-5); Basophils Abs Manual 0.7 X10*3/uL (0.0-0.2); Basophils Percent Manual 2 % (0-2); Eosinophils Absolute Manual 0.4 X10*3/uL (0.0-0.4); Eosinophils Percent Manual 1 % (0-4); Lymphocytes Absolute Manual 1.1 X10*3/uL (1.2-4.9); Lymphocytes Percent Manual 3 % (20-40); Metamyelocytes Absolute 0.4 X10*3/uL; Metamyelocytes Percent 1 %; Myelocytes Absolute 0.4 X10*/uL; Myelocytes Percent 1 %; Neutrophils Absolute Manual 32.5 X10*3/uL (2.0-8.3); Neutrophils Percent Manual 90 % (45-73)
[2022-11-06 07:33] LABS: Nucleated Red Blood Cells 1 /100WBC (0-0); Ovalocytes 1+ (5-14) /OIF; RBC Morphology NOTED; Tear Drop Cells 2+ (3-5) /OIF
[2022-11-06 07:35] LABS: Microcytosis 1+ (5-14) /OIF; Polychromasia 2+ (3-5) /OIF
[2022-11-06 07:36] LABS: Large Platelet PRESENT; Platelet Estimate DECREASED (NORMAL); Platelet Morphology Comment NOTED
[2022-11-06 08:00] VITALS: BP 105/68; PULSE 86; RESP 18; TEMP 36.6; O2SAT 98
[2022-11-06] MEDS: Fluticasone/Vilanterol 100/25 BLST.W.DEV 1 PUFF INHALE (08:44)
[2022-11-06 08:45] VITALS: PULSE 96; RESP 18; O2SAT 99
[2022-11-06] MEDS: Tamsulosin HCL 0.4 MG CAPSULE PO (09:14)
[2022-11-06] MEDS: Spironolactone 25 MG TABLET PO (09:14)
[2022-11-06] MEDS: Metoprolol Succinate ER 25 MG TAB.ER.24H PO (09:14)
[2022-11-06] MEDS: Doxycycline Monohydrate 100 MG CAPSULE PO ×2 (09:14→20:08)
[2022-11-06] MEDS: allopurinoL 300 MG TABLET PO (09:15)
[2022-11-06] MEDS: cefTRIAXone sodium 1 GM in 0.9 % Sodium Chloride 50 ML IV (09:15)
[2022-11-06] MEDS: Potassium Chloride ER 20 MEQ TAB.ER.PRT 40 MEQ PO (09:15)
[2022-11-06] MEDS: Ascorbic Acid 500 MG TABLET PO (09:15)
--- NOTE | 2022-11-06 11:58 | HO.PM.IMPN ---
Subjective Subjective Date of Service: 11/06/22 Interval History: For 1st day, pt now feels his dyspnea has improved. On 2L O2. [place] improving as well. Review of Systems Review of Systems: Yes all other systems are reviewed and are negative Physical Exam Vital Signs: Vital Signs: Last Vital Signs Temp 96.9 F 11/06/22 03:16 Pulse 96 11/06/22 08:45 Resp 18 11/06/22 08:45 BP 98/53 L 11/06/22 03:16 Pulse Ox 99 11/06/22 03:16 O2 Del Method 11/06/22 03:16 O2 Flow Rate 2 11/06/22 03:16 BMI result Body Mass Index 23.1 Gen: chronically ill but in NAD HEENT: sclera anicteric, moist mucus membranes Neck: supple Lungs: slightly diminished air entry but improved from yesterday Heart: irregularly irregular, no murmurs Abd: massive splenomegaly Ext: 1+ bilateral doughy leg edema Skin: warm/well-perfused, multiple ecchymoses, bright erythema L mayo Neuro: alert and oriented x3, no focal findings Psych: appropriate affect Objective Data Active Medications Acetaminophen (Acetaminophen 325 Mg Tablet) 650 mg PO Q4H PRN PRN Reason: mild pain Last Admin: 11/05/22 16:04 Dose: 650 mg Documented By: LYN Albuterol Sulfate (Albuterol Sulfate 90 Mcg 8 Gm Inhaler) 2 puff INHALE RQ6H PRN PRN Reason: Wheezing Allopurinol (Allopurinol 300 Mg Tablet) 300 mg PO DAILY [facility] Last Admin: 11/06/22 09:15 Dose: 300 mg Documented By: LYN Apixaban (Apixaban 5 Mg Tablet) 5 mg PO BID [facility] Last Admin: 11/05/22 09:23 Dose: Not Given Documented By: LYN Non-Admin Reason: Physician Held Med Ascorbic Acid (Ascorbic Acid 500 Mg Tablet) 500 mg PO DAILY [facility] Last Admin: 11/06/22 09:15 Dose: 500 mg Documented By: LYN Doxycycline Monohydrate (Doxycycline Monohydrate 100 Mg Capsule) 100 mg PO BID [facility] Last Admin: 11/06/22 09:14 Dose: 100 mg Documented By: LYN Enoxaparin Sodium (Enoxaparin Sodium 80 Mg/0.8 Ml Syringe) 70 mg 1 mg/kg (70 mg) SUBCUT Q12H [facility] Last Admin: 11/06/22 09:15 Dose: 70 mg Documented By: LYN Fluticasone/Vilanterol (Fluticasone/Vilanterol 100/25 Blst.W.Dev) 1 puff INHALE RDAILY [facility] Last Admin: 11/06/22 08:44 Dose: 1 puff Documented By: PEDRO Ceftriaxone Sodium 1 gm/ (Sodium Chloride) 50 mls @ 100 mls/hr IV Q24H [facility] Last Infusion: 11/06/22 09:52 Dose: 0 mls/hr Documented By: LYN Furosemide 200 mg/ Sodium (Chloride) 100 mls @ 5 mls/hr IVCONT .Q20H [facility] Last Admin: 11/06/22 01:03 Dose: 10 mg/hr, 5 mls/hr Documented By: ADELAIDA Metoprolol Succinate (Metoprolol Succinate Er 25 Mg Tab.Er.24h) 25 mg PO DAILY [facility]; Protocol Last Admin: 11/06/22 09:14 Dose: 25 mg Documented By: LYN Morphine Sulfate (Morphine Sulfate 2 Mg/Ml Cartridge) 2 mg IVPUSH Q4H PRN; Protocol PRN Reason: severe pain Oxycodone HCl (Oxycodone Hcl Immed Release 5 Mg Tablet) 5 mg PO Q4H PRN PRN Reason: moderate pain Last Admin: 11/05/22 16:04 Dose: 5 mg Documented By: LYN Potassium Chloride (Potassium Chloride Er 20 Meq Tab.Er.Prt) 40 meq PO DAILY [facility] Last Admin: 11/06/22 09:15 Dose: 40 meq Documented By: LYN Sodium Chloride (0.9 % Sodium Chloride Flush 3 Ml Syringe) 3 ml IVFLUSH QSHIFT [facility] Last Admin: 11/06/22 09:13 Dose: Not Given Documented By: LYN Non-Admin Reason: IV Running Spironolactone (Spironolactone 25 Mg Tablet) 25 mg PO DAILY [facility]; Protocol Last Admin: 11/06/22 09:14 Dose: 25 mg Documented By: LYN Tamsulosin HCl (Tamsulosin Hcl 0.4 Mg Capsule) 0.4 mg PO DAILY [facility] Last Admin: 11/06/22 09:14 Dose: 0.4 mg Documented By: LYN Labs CBC & Chem 7: 11/06/22 06:35 11/06/22 06:35 Labs: Laboratory Results - last 24 hr 11/06/22 11/06/22 11/06/22 06:35 06:35 06:35 MCV 83.7 MCH 24.9 L MCHC 29.7 L RDW 19.7 H Plt Count 99 L MPV Not Reportable Immature Gran % (Auto) Cancelled Neut % (Auto) Cancelled Lymph % (Auto) Cancelled [place] % (Auto) Cancelled Eos % (Auto) Cancelled Baso % (Auto) Cancelled Lymph # (Auto) Cancelled [place] # (Auto) Cancelled Eos # (Auto) Cancelled Baso # (Auto) Cancelled Abs Immat Gran (auto) Cancelled Absolute Neuts (auto) Cancelled Absolute Nucleated RBC 0.150 H Nucleated RBC % (auto) 0.4 H Neutrophils % (Manual) 90 H Band Neutrophils % 2 L Lymphocytes % (Manual) 3 L Eosinophils % (Manual) 1 Basophils % (Manual) 2 Metamyelocytes % 1 Myelocytes % 1 Abs Neuts (Manual) 32.5 H Lymphocytes # (Manual) 1.1 L Eosinophils # (Manual) 0.4 Basophils # (Manual) 0.7 H Metamyelocytes # 0.4 Myelocytes # 0.4 Nucleated RBCs 1 H Platelet Estimate DECREASED Large Platelets PRESENT Plt Morphology Comment NOTED RBC Morphology NOTED Polychromasia 2+ (3-5) Microcytosis 1+ (5-14) Tear Drop Cells 2+ (3-5) Ovalocytes 1+ (5-14) Anion Gap 13 Estim Creat Clear Calc 40.7 Estimated GFR 49 Random Glucose 80 Calcium 7.9 L Magnesium 2.2 B-Natriuretic Peptide 507 H Microbiology Microbiology Results: Microbiology 10/31/22 14:55 Blood Culture - Final Blood - Venous No growth after 5 days. 10/31/22 14:55 Blood Culture - Final Blood - Venous No growth after 5 days. 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 TTE shows severe R-sided HF. Cardiology consulted; continue metoprolol but reduced dose. continue to monitor electrolytes, BNP. 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 monitor CBC - no response to hydroxyurea, d/c per Heme/Onc Dr Okeefe who spoke to his oncologist Dr Hahn at [facility] - not septic # chronic AF - continue metoprolol tartrate - holding apixaban, giving enoxaprain # gout - continue allopurinol # BPH - continue tamsulosin # VTE ppx: apixaban -> enoxaparin # dispo: plan eventual home with VNA In my clinical judgment, the patient requires continued inpatient hospitalization for the following reasons: hypoxia, IV diuresis Time Spent With Patient Time: Total time managing care of this patient today ____ minutes. Quality Stroke Does the patient have a stroke diagnosis?: No VTE Prior VTE?: No VTE Risk Level:: Medical - moderate - high VTE Device Contraindication: Treatment Not Indicated VTE Drug Contraindication: N/A - Med Ordered
[2022-11-06 15:29] VITALS: BP 100/50; PULSE 97; RESP 20; TEMP 36.1; O2SAT 100
[2022-11-06 20:00] VITALS: BP 95/55; PULSE 75; RESP 18; TEMP 36.7; O2SAT 99
--- NOTE | 2022-11-06 20:36 | PM.PNCARD ---
Subjective Subjective Date of Service: 11/06/22 Interval history: Seen and examined at bedside. Feeling little better. Still SOB. Physical Exam Vital Signs: Last Vital Signs Temp 98.1 F 11/06/22 20:00 Pulse 75 11/06/22 20:00 Resp 18 11/06/22 20:00 BP 95/55 L 11/06/22 20:00 Pulse Ox 99 11/06/22 20:00 O2 Del Method 11/06/22 20:00 O2 Flow Rate 2 11/06/22 20:00 BMI result Body Mass Index 23.1 GENERAL APPEARANCE: Ill-appearing, cachectic, short of breath on supplemental oxygen NECK: no carotid bruit, mild jugular venous distention. SKIN: no suspicious lesions, warm and dry. HEART: no murmurs, irregular rate and rhythm. Left parasternal heave LUNGS: Clear at bases. ABDOMEN: Abdomen distended. No tenderness. EXTREMITIES: Bilateral edema. PERIPHERAL PULSES: equal. NEUROLOGIC: No gross deficits, AAO X 3 Objective Labs and Meds Result diagrams: 11/06/22 06:35 11/06/22 06:35 Lab results: Laboratory Results - last 24 hr 11/06/22 11/06/22 11/06/22 06:35 06:35 06:35 WBC 35.3 H* RBC 3.38 L Hgb 8.4 L Hct 28.3 L MCV 83.7 MCH 24.9 L MCHC 29.7 L RDW 19.7 H Plt Count 99 L MPV Not Reportable Immature Gran % (Auto) Cancelled Neut % (Auto) Cancelled Lymph % (Auto) Cancelled [place] % (Auto) Cancelled Eos % (Auto) Cancelled Baso % (Auto) Cancelled Lymph # (Auto) Cancelled [place] # (Auto) Cancelled Eos # (Auto) Cancelled Baso # (Auto) Cancelled Abs Immat Gran (auto) Cancelled Absolute Neuts (auto) Cancelled Absolute Nucleated RBC 0.150 H Nucleated RBC % (auto) 0.4 H Neutrophils % (Manual) 90 H Band Neutrophils % 2 L Lymphocytes % (Manual) 3 L Eosinophils % (Manual) 1 Basophils % (Manual) 2 Metamyelocytes % 1 Myelocytes % 1 Abs Neuts (Manual) 32.5 H Lymphocytes # (Manual) 1.1 L Eosinophils # (Manual) 0.4 Basophils # (Manual) 0.7 H Metamyelocytes # 0.4 Myelocytes # 0.4 Nucleated RBCs 1 H Platelet Estimate DECREASED Large Platelets PRESENT Plt Morphology Comment NOTED RBC Morphology NOTED Polychromasia 2+ (3-5) Microcytosis 1+ (5-14) Tear Drop Cells 2+ (3-5) Ovalocytes 1+ (5-14) Sodium 137 Potassium 3.5 Chloride 95 L Carbon Dioxide 33 H Anion Gap 13 BUN 56 H Creatinine 1.37 Estim Creat Clear Calc 40.7 Estimated GFR 49 Random Glucose 80 Calcium 7.9 L Magnesium 2.2 B-Natriuretic Peptide 507 H Progress Note: A&P Assessment and plan (1) RVF (right ventricular failure): Status: Acute Plan 87-year-old gentleman with chronic atrial fibrillation and right heart failure. Etiology of right heart failure is unclear. He is on IV Lasix gtt. Diuresing and somewhat better. Overall prognosis is poor. I had discussion with Dr Babb (his health program director) and discussed about the current presentation. She was in favor of Hospice and palliative care. I think we diurese and optimize his symptoms as well as we can. Will follow along with you. Time Spent With Patient Time: Total time managing care of this patient today ____ minutes. Progress Note: Quality Stroke Does the patient have a stroke diagnosis?: No Procedures Date of Service Date of Service: 11/06/22
[2022-11-06 23:39] VITALS: BP 98/52; PULSE 91; RESP 16; TEMP 36.8; O2SAT 100
[2022-11-07] VITALS (9 sets, daily range): BP systolic 87–111; BP diastolic 51–58; PULSE 81–111; RESP 14–18; TEMP 36.3–37.1; O2SAT 96–100
--- NOTE | 2022-11-07 02:02 | PC.NURSE ---
hypoensive, light headed, lungs clear, notified via [employer]. Lasix gtt paused pending physician response.
--- NOTE | 2022-11-07 06:16 | PC.NURSE ---
[id number] messaged to continue to pause lasix gtt. Patient continues with low BP, but above 90 systolicallly.
--- NOTE | 2022-11-07 06:26 | PM.EVENT ---
Event Note Date of Service: 11/07/22 Event Note: pt became hypotensive. lasix drip placed on hold with improvement in BP Time Spent With Patient Time: Total time managing care of this patient today ____ minutes.
[2022-11-07 06:51] LABS: Anion Gap 14 (12-20); Blood Urea Nitrogen 57 mg/dL (9-16); Calcium 7.9 mg/dL (8.4-10.2); Carbon Dioxide 32 mmol/L (22-29); Chloride 95 mmol/L (96-108); Creatinine Clr Calc Pharmacy 38.9; Estimated Glomerular Filt Rate 47; Glucose Random 80 mg/dL (60-115); Magnesium 2.2 mg/dL (1.6-2.6); Potassium 3.6 mmol/L (3.3-5.1); Sodium 137 mmol/L (135-145)
[2022-11-07] MEDS: Fluticasone/Vilanterol 100/25 BLST.W.DEV 1 PUFF INHALE (08:31)
[2022-11-07] MEDS: Potassium Chloride ER 20 MEQ TAB.ER.PRT 40 MEQ PO (08:42)
[2022-11-07] MEDS: Spironolactone 25 MG TABLET PO (08:42)
[2022-11-07] MEDS: allopurinoL 300 MG TABLET PO (08:42)
[2022-11-07] MEDS: Metoprolol Succinate ER 25 MG TAB.ER.24H PO (08:42)
[2022-11-07] MEDS: Ascorbic Acid 500 MG TABLET PO (08:42)
[2022-11-07] MEDS: Doxycycline Monohydrate 100 MG CAPSULE PO ×2 (08:42→22:02)
[2022-11-07] MEDS: Tamsulosin HCL 0.4 MG CAPSULE PO (08:42)
[2022-11-07] MEDS: cefTRIAXone sodium 1 GM in 0.9 % Sodium Chloride 50 ML IV (08:43)
[2022-11-07] MEDS: 0.9 % Sodium Chloride Flush 3 ML SYRINGE IVFLUSH ×2 (08:43→20:52)
--- NOTE | 2022-11-07 10:49 | HO.PM.IMPN ---
Subjective Subjective Date of Service: 11/07/22 Interval History: Hypotensive overnight so furosemide drip held CXR shows improvement in pleural effusions Review of Systems Review of Systems: Yes all other systems are reviewed and are negative Physical Exam Vital Signs: Vital Signs: Last Vital Signs Temp 98 F 11/07/22 07:07 Pulse 101 H 11/07/22 08:32 Resp 18 11/07/22 08:32 BP 100/54 L 11/07/22 07:07 Pulse Ox 97 11/07/22 07:07 O2 Del Method 11/07/22 07:07 O2 Flow Rate 2 11/07/22 07:07 BMI result Body Mass Index 23.1 Gen: chronically ill but in NAD HEENT: sclera anicteric, moist mucus membranes Neck: supple Lungs: slightly diminished air entry but improved from yesterday Heart: irregularly irregular, no murmurs Abd: massive splenomegaly Ext: 1+ bilateral doughy leg edema Skin: warm/well-perfused, multiple ecchymoses, mild erythema L mayo improving Neuro: alert and oriented x3, no focal findings Psych: appropriate affect Objective Data Active Medications Acetaminophen (Acetaminophen 325 Mg Tablet) 650 mg PO Q4H PRN PRN Reason: mild pain Last Admin: 11/05/22 16:04 Dose: 650 mg Documented By: LYN Albuterol Sulfate (Albuterol Sulfate 90 Mcg 8 Gm Inhaler) 2 puff INHALE RQ6H PRN PRN Reason: Wheezing Allopurinol (Allopurinol 300 Mg Tablet) 300 mg PO DAILY [facility] Last Admin: 11/07/22 08:42 Dose: 300 mg Documented By: HERNESTO Apixaban (Apixaban 5 Mg Tablet) 5 mg PO BID [facility] Last Admin: 11/05/22 09:23 Dose: Not Given Documented By: LYN Non-Admin Reason: Physician Held Med Ascorbic Acid (Ascorbic Acid 500 Mg Tablet) 500 mg PO DAILY [facility] Last Admin: 11/07/22 08:42 Dose: 500 mg Documented By: HERNESTO Doxycycline Monohydrate (Doxycycline Monohydrate 100 Mg Capsule) 100 mg PO BID [facility] Stop: 11/07/22 23:00 Last Admin: 11/07/22 08:42 Dose: 100 mg Documented By: HERNESTO Enoxaparin Sodium (Enoxaparin Sodium 80 Mg/0.8 Ml Syringe) 70 mg 1 mg/kg (70 mg) SUBCUT Q12H [facility] Last Admin: 11/07/22 08:42 Dose: 70 mg Documented By: HERNESTO Fluticasone/Vilanterol (Fluticasone/Vilanterol 100/25 Blst.W.Dev) 1 puff INHALE RDAILY [facility] Last Admin: 11/07/22 08:31 Dose: 1 puff Documented By: DAMION Ceftriaxone Sodium 1 gm/ (Sodium Chloride) 50 mls @ 100 mls/hr IV Q24H [facility] Stop: 11/07/22 18:00 Last Infusion: 11/07/22 09:34 Dose: 0 mls/hr Documented By: HENRESTO Furosemide 200 mg/ Sodium (Chloride) 100 mls @ 5 mls/hr IVCONT .Q20H [facility] Last Infusion: 11/07/22 09:33 Dose: 5 mg/hr, 2.5 mls/hr Documented By: HERNESTO Metoprolol Succinate (Metoprolol Succinate Er 25 Mg Tab.Er.24h) 25 mg PO DAILY [facility]; Protocol Last Admin: 11/07/22 08:42 Dose: 25 mg Documented By: HERNESTO Morphine Sulfate (Morphine Sulfate 2 Mg/Ml Cartridge) 2 mg IVPUSH Q4H PRN; Protocol PRN Reason: severe pain Oxycodone HCl (Oxycodone Hcl Immed Release 5 Mg Tablet) 5 mg PO Q4H PRN PRN Reason: moderate pain Last Admin: 11/05/22 16:04 Dose: 5 mg Documented By: LYN Potassium Chloride (Potassium Chloride Er 20 Meq Tab.Er.Prt) 40 meq PO DAILY [facility] Last Admin: 11/07/22 08:42 Dose: 40 meq Documented By: HERNESTO Sodium Chloride (0.9 % Sodium Chloride Flush 3 Ml Syringe) 3 ml IVFLUSH QSHIFT [facility] Last Admin: 11/07/22 08:43 Dose: 3 ml Documented By: HERNESTO Spironolactone (Spironolactone 25 Mg Tablet) 25 mg PO DAILY [facility]; Protocol Last Admin: 11/07/22 08:42 Dose: 25 mg Documented By: HERNESTO Tamsulosin HCl (Tamsulosin Hcl 0.4 Mg Capsule) 0.4 mg PO DAILY [facility] Last Admin: 11/07/22 08:42 Dose: 0.4 mg Documented By: HERNESTO Labs CBC & Chem 7: 11/06/22 06:35 11/07/22 05:48 Labs: Laboratory Results - last 24 hr 11/07/22 05:48 Anion Gap 14 Estim Creat Clear Calc 38.9 Estimated GFR 47 Random Glucose 80 Calcium 7.9 L Magnesium 2.2 Impressions Chest X-Ray 11/07/22 07:52 IMPRESSION: 1. Bilateral small pleural effusions (left greater than right), shows significant interval improvement since prior CT of the chest done on 10/04/2021. 2. Extensive diffuse sclerosis throughout the entire visualized skeleton, of indeterminate etiology. 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 TTE shows severe R-sided HF. Cardiology consulted; continue metoprolol but reduced dose. continue to monitor electrolytes, BNP. 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 monitor CBC - no response to hydroxyurea, d/c per Heme/Onc Dr Okeefe who spoke to his oncologist Dr Hahn at [facility] - not septic # chronic AF - continue metoprolol tartrate - apixaban # gout - continue allopurinol # BPH - continue tamsulosin # VTE ppx: apixaban -> enoxaparin # dispo: plan eventual home with VNA. may need home O2 evaluation In my clinical judgment, the patient requires continued inpatient hospitalization for the following reasons: hypoxia, IV diuresis Time Spent With Patient Time: Total time managing care of this patient today _35___ minutes. Quality Stroke Does the patient have a stroke diagnosis?: No VTE Prior VTE?: No VTE Risk Level:: Medical - moderate - high VTE Device Contraindication: Treatment Not Indicated VTE Drug Contraindication: N/A - Med Ordered
--- NOTE | 2022-11-07 11:05 | PM.PNCARD ---
Subjective Subjective Date of Service: 11/07/22 Interval history: Seen and examined at bedside. Feeling a little better. Blood pressure was soft overnight and Lasix drip was decreased. Continues to have peripheral edema. Physical Exam Vital Signs: Last Vital Signs Temp 98 F 11/07/22 07:07 Pulse 101 H 11/07/22 08:32 Resp 18 11/07/22 08:32 BP 100/54 L 11/07/22 07:07 Pulse Ox 97 11/07/22 07:07 O2 Del Method 11/07/22 07:07 O2 Flow Rate 2 11/07/22 07:07 BMI result Body Mass Index 23.1 GENERAL APPEARANCE: Ill-appearing, cachectic. NECK: no carotid bruit, no significant jugular venous distention. SKIN: no suspicious lesions, warm and dry. HEART: no murmurs, irregular rate and rhythm. LUNGS: Clear at bases. ABDOMEN: Abdomen distended. No tenderness. EXTREMITIES: Bilateral edema. PERIPHERAL PULSES: equal. NEUROLOGIC: No gross deficits, AAO X 3 Objective Labs and Meds Result diagrams: 11/06/22 06:35 11/07/22 05:48 Lab results: Laboratory Results - last 24 hr 11/07/22 05:48 Sodium 137 Potassium 3.6 Chloride 95 L Carbon Dioxide 32 H Anion Gap 14 BUN 57 H Creatinine 1.43 H Estim Creat Clear Calc 38.9 Estimated GFR 47 Random Glucose 80 Calcium 7.9 L Magnesium 2.2 Imaging Radiologist's impression: Impressions Chest X-Ray 11/07/22 07:52 IMPRESSION: 1. Bilateral small pleural effusions (left greater than right), shows significant interval improvement since prior CT of the chest done on 10/04/2021. 2. Extensive diffuse sclerosis throughout the entire visualized skeleton, of indeterminate etiology. Progress Note: A&P Assessment and plan (1) RVF (right ventricular failure): Status: Acute Plan 87-year-old gentleman with chronic atrial fibrillation and right heart failure. Etiology of right heart failure is unclear. He is on IV Lasix gtt. Diuresing and somewhat better. Overall prognosis is poor. I had discussion with Dr Babb (his canal driver) and discussed about the current presentation. She was in favor of Hospice and palliative care. I think we diurese and optimize his symptoms as well as we can. I think potentially can be changed to oral diuretics tomorrow. Would resume his home dose of torsemide. Metoprolol should be 25 mg at discharge. He should follow up with Dr. Babb. Will follow along with you. Time Spent With Patient Time: Total time managing care of this patient today ____ minutes. Progress Note: Quality Stroke Does the patient have a stroke diagnosis?: No Procedures Date of Service Date of Service: 11/07/22
--- NOTE | 2022-11-07 12:03 | MHC.CLN ---
NUTRITION CONSULT FOR SKIN INTEGRITY. PATIENT WITH STAGE I TO COCCYX. APPEARS TO BE EATING VERY WELL, MANY MEALS 100%. DIET=CARDIAC. NO ADDITIONAL NUTRITION INTERVENTIONS AT THIS TIME.
[2022-11-07] MEDS: Furosemide 200 MG in 0.9 % Sodium Chloride 80 ML IVCONT (21:59)
[2022-11-07] MEDS: Apixaban 5 MG TABLET PO (22:01)
[2022-11-08] VITALS (8 sets, daily range): BP systolic 93–125; BP diastolic 50–58; PULSE 69–90; RESP 16–18; TEMP 36.1–36.9; O2SAT 95–100
[2022-11-08 06:31] LABS: B Type Natriuretic Peptide 477 pg/mL (<100)
[2022-11-08 06:47] LABS: Anion Gap 13 (12-20); Blood Urea Nitrogen 54 mg/dL (9-16); Calcium 8.2 mg/dL (8.4-10.2); Carbon Dioxide 32 mmol/L (22-29); Chloride 95 mmol/L (96-108); Creatinine Clr Calc Pharmacy 44.2; Estimated Glomerular Filt Rate 54; Glucose Random 72 mg/dL (60-115); Magnesium 2.1 mg/dL (1.6-2.6); Potassium 3.8 mmol/L (3.3-5.1); Sodium 136 mmol/L (135-145)
[2022-11-08] MEDS: Fluticasone/Vilanterol 100/25 BLST.W.DEV 1 PUFF INHALE (07:34)
[2022-11-08] MEDS: allopurinoL 300 MG TABLET PO (09:19)
[2022-11-08] MEDS: Potassium Chloride ER 20 MEQ TAB.ER.PRT 40 MEQ PO (09:19)
[2022-11-08] MEDS: Ascorbic Acid 500 MG TABLET PO (09:19)
[2022-11-08] MEDS: Metoprolol Succinate ER 25 MG TAB.ER.24H PO (09:19)
[2022-11-08] MEDS: Spironolactone 25 MG TABLET PO (09:19)
[2022-11-08] MEDS: Apixaban 5 MG TABLET PO ×2 (09:19→21:06)
[2022-11-08] MEDS: Tamsulosin HCL 0.4 MG CAPSULE PO (09:19)
[2022-11-08] MEDS: 0.9 % Sodium Chloride Flush 3 ML SYRINGE IVFLUSH ×3 (09:20→21:07)
[2022-11-08] MEDS: Acetaminophen 325 MG TABLET 650 MG PO (09:23)
--- NOTE | 2022-11-08 13:36 | P.PNIM_ITS ---
Subjective Subjective Date of Service: 11/08/22 Interval History: Admitted with right ventricular failure; states he feels better with Lasix drip Review of Systems Denies chest pain Denies shortness of breath Denies nausea vomiting diarrhea Denies fever chills Physical Exam Vital Signs: Vital Signs: Last Vital Signs Temp 97.2 F 11/08/22 10:54 Pulse 86 11/08/22 10:54 Resp 18 11/08/22 10:54 BP 125/55 L 11/08/22 10:54 Pulse Ox 96 11/08/22 10:54 O2 Del Method 11/08/22 10:54 O2 Flow Rate 2.5 11/08/22 07:09 BMI result Body Mass Index 23.1 Const: Other: Awake alert no acute distress Resp: Other: Clear to auscultation bilaterally no rales rhonchi or wheezes Cardio: Other: No S4; positive S1-S2; no S3 murmurs or gallops GI: Other: Soft nontender nondistended normoactive bowel sounds Extrem: Other: No edema bilaterally Objective Data Active Medications Acetaminophen (Acetaminophen 325 Mg Tablet) 650 mg PO Q4H PRN PRN Reason: mild pain Last Admin: 11/08/22 09:23 Dose: 650 mg Documented By: HERNESTO Albuterol Sulfate (Albuterol Sulfate 90 Mcg 8 Gm Inhaler) 2 puff INHALE RQ6H PRN PRN Reason: Wheezing Allopurinol (Allopurinol 300 Mg Tablet) 300 mg PO DAILY [facility] Last Admin: 11/08/22 09:19 Dose: 300 mg Documented By: HERNESTO Apixaban (Apixaban 5 Mg Tablet) 5 mg PO BID [facility] Last Admin: 11/08/22 09:19 Dose: 5 mg Documented By: HERNESTO Ascorbic Acid (Ascorbic Acid 500 Mg Tablet) 500 mg PO DAILY [facility] Last Admin: 11/08/22 09:19 Dose: 500 mg Documented By: HERNESTO Fluticasone/Vilanterol (Fluticasone/Vilanterol 100/25 Blst.W.Dev) 1 puff INHALE RDAILY [facility] Last Admin: 11/08/22 07:34 Dose: 1 puff Documented By: DAMION Furosemide 200 mg/ Sodium (Chloride) 100 mls @ 2.5 mls/hr IVCONT .Q24H [facility] Last Admin: 11/07/22 21:59 Dose: 5 mg/hr, 2.5 mls/hr Documented By: ADELAIDA Metoprolol Succinate (Metoprolol Succinate Er 25 Mg Tab.Er.24h) 25 mg PO DAILY [facility]; Protocol Last Admin: 11/08/22 09:19 Dose: 25 mg Documented By: HERNESTO Morphine Sulfate (Morphine Sulfate 2 Mg/Ml Cartridge) 2 mg IVPUSH Q4H PRN; Protocol PRN Reason: severe pain Oxycodone HCl (Oxycodone Hcl Immed Release 5 Mg Tablet) 5 mg PO Q4H PRN PRN Reason: moderate pain Last Admin: 11/05/22 16:04 Dose: 5 mg Documented By: LYN Potassium Chloride (Potassium Chloride Er 20 Meq Tab.Er.Prt) 40 meq PO DAILY [facility] Last Admin: 11/08/22 09:19 Dose: 40 meq Documented By: HERNESTO Sodium Chloride (0.9 % Sodium Chloride Flush 3 Ml Syringe) 3 ml IVFLUSH QSHIFT [facility] Last Admin: 11/08/22 09:20 Dose: 3 ml Documented By: HERNESTO Spironolactone (Spironolactone 25 Mg Tablet) 25 mg PO DAILY [facility]; Protocol Last Admin: 11/08/22 09:19 Dose: 25 mg Documented By: HERNESTO Tamsulosin HCl (Tamsulosin Hcl 0.4 Mg Capsule) 0.4 mg PO DAILY [facility] Last Admin: 11/08/22 09:19 Dose: 0.4 mg Documented By: HERNESTO Labs CBC & Chem 7: 11/06/22 06:35 11/08/22 05:14 Labs: Laboratory Results - last 24 hr 11/08/22 11/08/22 05:14 05:14 Anion Gap 13 Estim Creat Clear Calc 44.2 Estimated GFR 54 Random Glucose 72 Calcium 8.2 L Magnesium 2.1 B-Natriuretic Peptide 477 H Assessment and Plan (1) RVF (right ventricular failure): Status: Acute (2) Cellulitis: Status: Acute (3) Chronic a-fib: Status: Acute Plan 87yo M with 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 UTI, - ceftriaxone d#05/19...completed 6.Chronic AF -rate control adequate - continue metoprolol tartrate - apixaban Enoxaparin DNR DNI In my clinical judgment, the patient requires continued inpatient hospitalization for the following reasons: hypoxia, IV diuresis Time Spent With Patient Time: Total time managing care of this patient today ____ minutes. Quality Stroke Does the patient have a stroke diagnosis?: No VTE Prior VTE?: No VTE Risk Level:: Medical - moderate - high VTE Device Contraindication: Treatment Not Indicated VTE Drug Contraindication: N/A - Med Ordered
--- NOTE | 2022-11-08 16:53 | P.PNCA_ITS ---
Subjective Subjective Date of Service: 11/08/22 Principal diagnosis: Right ventricular failure Interval history: Patient says is still fluid overloaded. Still feels weak. Has been diuresing with IV Lasix and improving but not completely normalized. Denies any li ghtheadedness, syncope. Denies any palpitations or irregular heartbeat. His creatinine is improved marginally. Review of Systems Constitutional: Reports malaise and Reports weakness Eyes: Reports no additional eye complaints Cardiovascular: Reports Abdominal Distension, Denies chest pain, Reports leg edema, Denies Loss of Consciousness, Denies palpitations and Reports dyspnea Respiratory: Reports no additional respiratory complaints and Reports dyspnea Gastrointestinal: Reports no additional gastrointestinal complaints Reports weakness Endocrine: Denies palpitations Physical Exam Vital Signs: Last Vital Signs Temp 97.0 F 11/08/22 15:12 Pulse 79 11/08/22 15:12 Resp 16 11/08/22 15:12 BP 93/54 L 11/08/22 15:12 Pulse Ox 98 11/08/22 15:12 O2 Del Method 11/08/22 15:12 O2 Flow Rate 2.5 11/08/22 07:09 BMI result Body Mass Index 23.1 GENERAL APPEARANCE: Ill-appearing, cachectic. NECK: no carotid bruit, no significant jugular venous distention. SKIN: no suspicious lesions, warm and dry. HEART: no murmurs, irregular rate and rhythm. LUNGS: Clear at bases. ABDOMEN: Abdomen distended. No tenderness. EXTREMITIES: Bilateral edema. PERIPHERAL PULSES: equal. NEUROLOGIC: No gross deficits, AAO X 3 Neck Neck: Yes JVD Objective Labs and Meds Result diagrams: 11/06/22 06:35 11/08/22 05:14 Lab results: Laboratory Results - last 24 hr 11/08/22 11/08/22 05:14 05:14 Sodium 136 Potassium 3.8 Chloride 95 L Carbon Dioxide 32 H Anion Gap 13 BUN 54 H Creatinine 1.26 Estim Creat Clear Calc 44.2 Estimated GFR 54 Random Glucose 72 Calcium 8.2 L Magnesium 2.1 B-Natriuretic Peptide 477 H Progress Note: A&P Assessment and plan (1) RVF (right ventricular failure): Status: Acute Assessment and Plan: Patient with advanced right ventricular dysfunction with poor prognosis. Still appears to be significantly fluid overloaded. Continue IV diuresis with Lasix drip. As long as his diuresing gently continue the same. Continue monitor renal function electrolytes. Overall prognosis is poor and guarded. Management was discussed with the patient. He understands poor prognosis associated with it. Continue spironolactone therapy. (2) Chronic a-fib: Status: Acute Assessment and Plan: Chronic atrial fibrillation, rate controlled. Continue metoprolol for rate control. Continue full oral anticoagulation with Eliquis, if creatinine continues to rise and about 1.5 switch to 2.5 mg b.i.d.. Will continue to follow with you Time Spent With Patient Time: Total time managing care of this patient today ____ minutes. Progress Note: Quality Stroke Does the patient have a stroke diagnosis?: No Procedures Date of Service Date of Service: 11/08/22
[2022-11-08] MEDS: Furosemide 200 MG in 0.9 % Sodium Chloride 80 ML IVCONT (21:07)
[2022-11-09] VITALS (10 sets, daily range): BP systolic 98–113; BP diastolic 54–58; PULSE 81–99; RESP 16–20; TEMP 36.6–37.1; O2SAT 94–97
[2022-11-09 06:53] LABS: Hematocrit 27.7 % (42.0-52.0); Hemoglobin 8.1 g/dl (14.0-18.0); Mean Corpuscular HGB Conc 29.2 g/dl (31.0-36.0); Mean Corpuscular Hemoglobin 24.9 pg (27.0-33.0); Mean Corpuscular Volume 85.2 fL (80.0-98.0); NRBC Pct Auto 0.2 /100WBC (0.0-0.2); Platelet Count 116 X10*3/uL (160-400); Red Blood Count 3.25 X10*6/uL (4.60-5.80); Red Cell Distribution Width 19.6 % (11.0-16.0)
[2022-11-09 07:11] LABS: Alanine Aminotransferase < 6 U/L (0-40); Alkaline Phosphatase 82 U/L (39-117); Anion Gap 12 (12-20); Aspartate Amino Transferase 8 U/L (5-37); Bilirubin Total 0.8 mg/dL (0.0-1.0); Blood Urea Nitrogen 54 mg/dL (9-16); Calcium 8.2 mg/dL (8.4-10.2); Carbon Dioxide 34 mmol/L (22-29); Chloride 95 mmol/L (96-108); Creatinine Clr Calc Pharmacy 43.9; Estimated Glomerular Filt Rate 54; Glucose Fasting 62 mg/dL (60-99); Potassium 4.3 mmol/L (3.3-5.1); Sodium 137 mmol/L (135-145); Total Protein 5.2 g/dL (6.5-8.0)
[2022-11-09 07:36] LABS: White Blood Count 33.9 X10*3/uL (4.8-10.8)
[2022-11-09] MEDS: Fluticasone/Vilanterol 100/25 BLST.W.DEV 1 PUFF INHALE (07:41)
[2022-11-09 08:04] LABS: Band Neutrophils Percent 9 % (3-5); Basophils Abs Manual 0.3 X10*3/uL (0.0-0.2); Basophils Percent Manual 1 % (0-2); Eosinophils Percent Manual 3 % (0-4); Lymphocytes Absolute Manual 0.7 X10*3/uL (1.2-4.9); Lymphocytes Percent Manual 2 % (20-40); Metamyelocytes Absolute 0.7 X10*3/uL; Metamyelocytes Percent 2 %; Monocytes Absolute Manual 0.7 X10*3/uL (0.1-1.2); Monocytes Percent Manual 2 % (2-11); Neutrophils Absolute Manual 30.5 X10*3/uL (2.0-8.3); Neutrophils Percent Manual 81 % (45-73)
[2022-11-09 08:09] LABS: Acanthocytes 1+ (0-2) /OIF; Large Platelet PRESENT; Microcytosis 1+ (5-14) /OIF; Ovalocytes 2+ (15-30) /OIF; Platelet Estimate DECREASED (NORMAL); Platelet Morphology Comment NOTED; RBC Morphology NOTED; Schistocytes 1+ (0-2) /OIF
[2022-11-09 08:10] LABS: Basophilic Stippling 1+ (0-2) /OIF; Hypochromasia 1+ (5-14) /OIF; Polychromasia 1+ (0-2) /OIF; Tear Drop Cells 2+ (3-5) /OIF
[2022-11-09] MEDS: Spironolactone 25 MG TABLET PO (09:14)
[2022-11-09] MEDS: Acetaminophen 325 MG TABLET 650 MG PO (09:14)
[2022-11-09] MEDS: Metoprolol Succinate ER 25 MG TAB.ER.24H PO (09:14)
[2022-11-09] MEDS: allopurinoL 300 MG TABLET PO (09:14)
[2022-11-09] MEDS: Tamsulosin HCL 0.4 MG CAPSULE PO (09:15)
[2022-11-09] MEDS: Potassium Chloride ER 20 MEQ TAB.ER.PRT 40 MEQ PO (09:15)
[2022-11-09] MEDS: 0.9 % Sodium Chloride Flush 3 ML SYRINGE IVFLUSH (09:15)
[2022-11-09] MEDS: Apixaban 5 MG TABLET PO ×2 (09:15→22:05)
[2022-11-09] MEDS: Ascorbic Acid 500 MG TABLET PO (09:15)
--- NOTE | 2022-11-09 12:49 | MHC.CM.PN ---
pt sandy lbe for str when dcd requested from md a more current pt eval for ins auth
--- NOTE | 2022-11-09 13:19 | P.PNCA_ITS ---
Subjective Subjective Date of Service: 11/09/22 Principal diagnosis: Right ventricular failure Interval history: Zenon continues to have significant leg swelling abdominal distension. Not much improved compared to yesterday. Had tepid diuresis. Denies any palp itations or chest pain. No lightheadedness Review of Systems Constitutional: Reports weakness Cardiovascular: Reports Abdominal Distension, Denies chest pain, Reports leg edema, Denies lightheadedness and Reports dyspnea on exertion Respiratory: Reports dyspnea on exertion Reports weakness Physical Exam Vital Signs: Last Vital Signs Temp 98 F 11/09/22 11:00 Pulse 84 11/09/22 11:00 Resp 19 11/09/22 11:00 BP 113/55 L 11/09/22 11:00 Pulse Ox 96 11/09/22 11:00 O2 Del Method 11/09/22 11:00 O2 Flow Rate 2.5 11/08/22 07:09 BMI result Body Mass Index 23.1 GENERAL APPEARANCE: Ill-appearing, cachectic. NECK: no carotid bruit, no significant jugular venous distention. SKIN: no suspicious lesions, warm and dry. HEART: no murmurs, irregular rate and rhythm. LUNGS: Clear at bases. ABDOMEN: Abdomen distended. No tenderness. EXTREMITIES: Bilateral edema. PERIPHERAL PULSES: equal. NEUROLOGIC: No gross deficits, AAO X 3 Neck Neck: Yes JVD Objective Labs and Meds Result diagrams: 11/09/22 05:42 11/09/22 05:42 Lab results: Laboratory Results - last 24 hr 11/09/22 11/09/22 05:42 05:42 WBC 33.9 H* RBC 3.25 L Hgb 8.1 L Hct 27.7 L MCV 85.2 MCH 24.9 L MCHC 29.2 L RDW 19.6 H Plt Count 116 L MPV Not Reportable Immature Gran % (Auto) Cancelled Neut % (Auto) Cancelled Lymph % (Auto) Cancelled [place] % (Auto) Cancelled Eos % (Auto) Cancelled Baso % (Auto) Cancelled Lymph # (Auto) Cancelled [place] # (Auto) Cancelled Eos # (Auto) Cancelled Baso # (Auto) Cancelled Abs Immat Gran (auto) Cancelled Absolute Neuts (auto) Cancelled Absolute Nucleated RBC 0.060 H Nucleated RBC % (auto) 0.2 Neutrophils % (Manual) 81 H Band Neutrophils % 9 H Lymphocytes % (Manual) 2 L Monocytes % (Manual) 2 Eosinophils % (Manual) 3 Basophils % (Manual) 1 Metamyelocytes % 2 Abs Neuts (Manual) 30.5 H Lymphocytes # (Manual) 0.7 L Monocytes # (Manual) 0.7 Eosinophils # (Manual) 1.0 H Basophils # (Manual) 0.3 H Metamyelocytes # 0.7 Platelet Estimate DECREASED Large Platelets PRESENT Plt Morphology Comment NOTED RBC Morphology NOTED Polychromasia 1+ (0-2) Hypochromasia 1+ (5-14) Basophilic Stippling 1+ (0-2) Microcytosis 1+ (5-14) Tear Drop Cells 2+ (3-5) Ovalocytes 2+ (15-30) Acanthocytes (Sp[place]) 1+ (0-2) Schistocytes 1+ (0-2) Sodium 137 Potassium 4.3 Chloride 95 L Carbon Dioxide 34 H Anion Gap 12 BUN 54 H Creatinine 1.27 Estim Creat Clear Calc 43.9 Estimated GFR 54 Fasting Glucose 62 D Calcium 8.2 L Total Bilirubin 0.8 AST 8 ALT < 6 Alkaline Phosphatase 82 Total Protein 5.2 L Albumin 3.0 L Progress Note: A&P Assessment and plan (1) RVF (right ventricular failure): Status: Acute Assessment and Plan: Right ventricular failure with poor response to IV Lasix at current rate. Give additional metolazone, question diuretic resistance. Strict intake and output chart needs to be pursued. I do not think patient is ready for discharge and will need further diuresis prior to discharge unless she would have recurrent hospitalization related to right ventricular failure. High risk for recurrent hospitalization any way. Overall prognosis is grim. Continue other management including oral anticoagulation therapy. Patient is aware of his prognosis. This looking for better quality of life. Continue monitor intake and output ch art closely as well as renal function closely. Will follow with you Time Spent With Patient Time: Total time managing care of this patient today ____ minutes. Progress Note: Quality Stroke Does the patient have a stroke diagnosis?: No Procedures Date of Service Date of Service: 11/09/22
[2022-11-09] MEDS: metOLazone 2.5 MG TABLET PO (14:19)
--- NOTE | 2022-11-09 14:52 | HO.PM.IMPN ---
Subjective Subjective Date of Service: 11/09/22 Interval History: Feels somewhat improved but feels still more fluid to take off Review of Systems Denies chest pain Denies shortness of breath Denies nausea vomiting diarrhea Denies fever chills Physical Exam Vital Signs: Vital Signs: Last Vital Signs Temp 98 F 11/09/22 11:00 Pulse 84 11/09/22 11:00 Resp 19 11/09/22 11:00 BP 113/55 L 11/09/22 11:00 Pulse Ox 96 11/09/22 11:00 O2 Del Method 11/09/22 11:00 O2 Flow Rate 2.5 11/08/22 07:09 BMI result Body Mass Index 23.1 Const: Other: Awake alert no acute distress Resp: Other: Clear to auscultation bilaterally no rales rhonchi or wheezes Cardio: Other: No S4; positive S1-S2; no S3 murmurs or gallops GI: Other: Soft nontender nondistended normoactive bowel sounds Extrem: Other: No edema bilaterally Objective Data Active Medications Acetaminophen (Acetaminophen 325 Mg Tablet) 650 mg PO Q4H PRN PRN Reason: mild pain Last Admin: 11/09/22 09:14 Dose: 650 mg Documented By: HERNESTO Albuterol Sulfate (Albuterol Sulfate 90 Mcg 8 Gm Inhaler) 2 puff INHALE RQ6H PRN PRN Reason: Wheezing Allopurinol (Allopurinol 300 Mg Tablet) 300 mg PO DAILY [facility] Last Admin: 11/09/22 09:14 Dose: 300 mg Documented By: HERNESTO Apixaban (Apixaban 5 Mg Tablet) 5 mg PO BID [facility] Last Admin: 11/09/22 09:15 Dose: 5 mg Documented By: HERNESTO Ascorbic Acid (Ascorbic Acid 500 Mg Tablet) 500 mg PO DAILY [facility] Last Admin: 11/09/22 09:15 Dose: 500 mg Documented By: HERNESTO Fluticasone/Vilanterol (Fluticasone/Vilanterol 100/25 Blst.W.Dev) 1 puff INHALE RDAILY [facility] Last Admin: 11/09/22 07:41 Dose: 1 puff Documented By: TIMO Furosemide 200 mg/ Sodium (Chloride) 100 mls @ 2.5 mls/hr IVCONT .Q24H [facility] Last Admin: 11/08/22 21:07 Dose: 5 mg/hr, 2.5 mls/hr Documented By: WENDI Metoprolol Succinate (Metoprolol Succinate Er 25 Mg Tab.Er.24h) 25 mg PO DAILY [facility]; Protocol Last Admin: 11/09/22 09:14 Dose: 25 mg Documented By: HERNESTO Morphine Sulfate (Morphine Sulfate 2 Mg/Ml Cartridge) 2 mg IVPUSH Q4H PRN; Protocol PRN Reason: severe pain Oxycodone HCl (Oxycodone Hcl Immed Release 5 Mg Tablet) 5 mg PO Q4H PRN PRN Reason: moderate pain Last Admin: 11/05/22 16:04 Dose: 5 mg Documented By: LYN Potassium Chloride (Potassium Chloride Er 20 Meq Tab.Er.Prt) 40 meq PO DAILY [facility] Last Admin: 11/09/22 09:15 Dose: 40 meq Documented By: HERNESTO Sodium Chloride (0.9 % Sodium Chloride Flush 3 Ml Syringe) [address] [facility] Last Admin: 11/09/22 09:15 Dose: 3 ml Documented By: HERNESTO Spironolactone (Spironolactone 25 Mg Tablet) 25 mg PO DAILY [facility]; Protocol Last Admin: 11/09/22 09:14 Dose: 25 mg Documented By: HERNESTO Tamsulosin HCl (Tamsulosin Hcl 0.4 Mg Capsule) 0.4 mg PO DAILY [facility] Last Admin: 11/09/22 09:15 Dose: 0.4 mg Documented By: HERNESTO Labs CBC & Chem 7: 11/09/22 05:42 11/09/22 05:42 Labs: Laboratory Results - last 24 hr 11/09/22 11/09/22 05:42 05:42 MCV 85.2 MCH 24.9 L MCHC 29.2 L RDW 19.6 H Plt Count 116 L MPV Not Reportable Immature Gran % (Auto) Cancelled Neut % (Auto) Cancelled Lymph % (Auto) Cancelled [place] % (Auto) Cancelled Eos % (Auto) Cancelled Baso % (Auto) Cancelled Lymph # (Auto) Cancelled [place] # (Auto) Cancelled Eos # (Auto) Cancelled Baso # (Auto) Cancelled Abs Immat Gran (auto) Cancelled Absolute Neuts (auto) Cancelled Absolute Nucleated RBC 0.060 H Nucleated RBC % (auto) 0.2 Neutrophils % (Manual) 81 H Band Neutrophils % 9 H Lymphocytes % (Manual) 2 L Monocytes % (Manual) 2 Eosinophils % (Manual) 3 Basophils % (Manual) 1 Metamyelocytes % 2 Abs Neuts (Manual) 30.5 H Lymphocytes # (Manual) 0.7 L Monocytes # (Manual) 0.7 Eosinophils # (Manual) 1.0 H Basophils # (Manual) 0.3 H Metamyelocytes # 0.7 Platelet Estimate DECREASED Large Platelets PRESENT Plt Morphology Comment NOTED RBC Morphology NOTED Polychromasia 1+ (0-2) Hypochromasia 1+ (5-14) Basophilic Stippling 1+ (0-2) Microcytosis 1+ (5-14) Tear Drop Cells 2+ (3-5) Ovalocytes 2+ (15-30) Acanthocytes (Spur) 1+ (0-2) Schistocytes 1+ (0-2) Anion Gap 12 Estim Creat Clear Calc 43.9 Estimated GFR 54 Fasting Glucose 62 D Calcium 8.2 L Total Bilirubin 0.8 AST 8 ALT < 6 Alkaline Phosphatase 82 Total Protein 5.2 L Albumin 3.0 L Assessment and Plan (1) RVF (right ventricular failure): Status: Acute (2) Chronic a-fib: Status: Acute Plan 87yo M with 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), CHF, chronic AF admitted with CHF exacerbation, LLE cellulitis, ALEX, and UTI 1.Acute-chronic R-sided HF - continue Lasix drip as ordered (5 milligrams/hour) -1 dose of metolazone 2.5 -strict I&Os 2.Hypokalemia/ALEX -Aldactone added metolazone -follow renals/divalents 3.Acute hypoxic resp failure - diurese + wean O2 as tolerated 4.Chronic AF -rate control adequate - continue metoprolol tartrate - apixaban Enoxaparin DNR DNI In my clinical judgment, the patient requires continued inpatient hospitalization for the following reasons: hypoxia, IV diuresis Time Spent With Patient Time: Total time managing care of this patient today ____ minutes. Quality Stroke Does the patient have a stroke diagnosis?: No VTE Prior VTE?: No VTE Risk Level:: Medical - moderate - high VTE Device Contraindication: Treatment Not Indicated VTE Drug Contraindication: N/A - Med Ordered
[2022-11-09] MEDS: Furosemide 200 MG in 0.9 % Sodium Chloride 80 ML IVCONT (22:05)
[2022-11-09] MEDS: oxyCODONE HCl Immed Release 5 MG TABLET PO (22:34)
[2022-11-10] VITALS (7 sets, daily range): BP systolic 98–106; BP diastolic 50–59; PULSE 82–100; RESP 16–18; TEMP 36.3–37.2; O2SAT 93–100
[2022-11-10 05:51] LABS: PLT ABN DIST 1
[2022-11-10 05:53] LABS: Hematocrit 26.5 % (42.0-52.0); Hemoglobin 7.9 g/dl (14.0-18.0); Mean Corpuscular HGB Conc 29.8 g/dl (31.0-36.0); Mean Corpuscular Hemoglobin 25.6 pg (27.0-33.0); Mean Corpuscular Volume 85.8 fL (80.0-98.0); Mean Platelet Volume 10.5 fL (9.4-12.4); NRBC Pct Auto 0.3 /100WBC (0.0-0.2); Platelet Count 112 X10*3/uL (160-400); Red Blood Count 3.09 X10*6/uL (4.60-5.80); Red Cell Distribution Width 19.3 % (11.0-16.0)
[2022-11-10 05:57] LABS: White Blood Count 35.5 X10*3/uL (4.8-10.8)
[2022-11-10 06:11] LABS: Band Neutrophils Percent 0 % (3-5); Basophils Abs Manual 0.4 X10*3/uL (0.0-0.2); Basophils Percent Manual 1 % (0-2); Lymphocytes Absolute Manual 1.1 X10*3/uL (1.2-4.9); Lymphocytes Percent Manual 3 % (20-40); Metamyelocytes Absolute 0.4 X10*3/uL; Metamyelocytes Percent 1 %; Monocytes Absolute Manual 0.4 X10*3/uL (0.1-1.2); Monocytes Percent Manual 1 % (2-11); Neutrophils Absolute Manual 33.4 X10*3/uL (2.0-8.3); Neutrophils Percent Manual 94 % (45-73); Nucleated Red Blood Cells 1 /100WBC (0-0)
[2022-11-10 06:14] LABS: Basophilic Stippling 1+ (0-2) /OIF; Hypersegmented Neutrophils PRESENT; Large Platelet PRESENT; Microcytosis 1+ (5-14) /OIF; Ovalocytes 1+ (5-14) /OIF; Platelet Estimate SLIGHTLY DECREASED (NORMAL); Platelet Morphology Comment NOTED; Polychromasia 1+ (0-2) /OIF; RBC Morphology NOTED; Tear Drop Cells 2+ (3-5) /OIF
[2022-11-10 06:32] LABS: Alanine Aminotransferase 10 U/L (0-40); Albumin Level 2.9 g/dL (3.5-5.0); Alkaline Phosphatase 90 U/L (39-117); Anion Gap 14 (12-20); Aspartate Amino Transferase 8 U/L (5-37); Bilirubin Total 0.9 mg/dL (0.0-1.0); Blood Urea Nitrogen 51 mg/dL (9-16); Calcium 8.3 mg/dL (8.4-10.2); Carbon Dioxide 32 mmol/L (22-29); Chloride 96 mmol/L (96-108); Creatinine Clr Calc Pharmacy 45.7; Estimated Glomerular Filt Rate 56; Glucose Fasting 65 mg/dL (60-99); Potassium 4.5 mmol/L (3.3-5.1); Sodium 137 mmol/L (135-145); Total Protein 5.1 g/dL (6.5-8.0)
[2022-11-10] MEDS: Fluticasone/Vilanterol 100/25 BLST.W.DEV 1 PUFF INHALE (08:31)
[2022-11-10] MEDS: 0.9 % Sodium Chloride Flush 3 ML SYRINGE IVFLUSH (09:38)
[2022-11-10] MEDS: Ascorbic Acid 500 MG TABLET PO (09:38)
[2022-11-10] MEDS: Metoprolol Succinate ER 25 MG TAB.ER.24H PO (09:38)
[2022-11-10] MEDS: Tamsulosin HCL 0.4 MG CAPSULE PO (09:38)
[2022-11-10] MEDS: Apixaban 5 MG TABLET PO ×2 (09:38→19:40)
[2022-11-10] MEDS: allopurinoL 300 MG TABLET PO (09:38)
[2022-11-10] MEDS: Spironolactone 25 MG TABLET PO (09:38)
[2022-11-10] MEDS: Potassium Chloride ER 20 MEQ TAB.ER.PRT 40 MEQ PO (09:39)
--- NOTE | 2022-11-10 10:30 | HO.PM.IMPN ---
Subjective Subjective Date of Service: 11/10/22 Interval History: Feels somewhat improved but feels still more fluid to take off Review of Systems Denies chest pain Denies shortness of breath Denies nausea vomiting diarrhea Denies fever chills Physical Exam Vital Signs: Vital Signs: Last Vital Signs Temp 99.0 F 11/10/22 07:36 Pulse 82 11/10/22 08:31 Resp 16 11/10/22 08:31 BP 98/50 L 11/10/22 07:36 Pulse Ox 93 11/10/22 07:36 O2 Del Method 11/10/22 07:36 O2 Flow Rate 2.5 11/08/22 07:09 BMI result Body Mass Index 23.1 Const: Other: Awake alert no acute distress Resp: Other: Clear to auscultation bilaterally no rales rhonchi or wheezes Cardio: Other: No S4; positive S1-S2; no S3 murmurs or gallops GI: Other: Soft nontender nondistended normoactive bowel sounds Extrem: Other: No edema bilaterally Objective Data Active Medications Acetaminophen (Acetaminophen 325 Mg Tablet) 650 mg PO Q4H PRN PRN Reason: mild pain Last Admin: 11/09/22 09:14 Dose: 650 mg Documented By: HERNESTO Albuterol Sulfate (Albuterol Sulfate 90 Mcg 8 Gm Inhaler) 2 puff INHALE RQ6H PRN PRN Reason: Wheezing Allopurinol (Allopurinol 300 Mg Tablet) 300 mg PO DAILY [facility] Last Admin: 11/10/22 09:38 Dose: 300 mg Documented By: FELICIA Apixaban (Apixaban 5 Mg Tablet) 5 mg PO BID [facility] Last Admin: 11/10/22 09:38 Dose: 5 mg Documented By: FELICIA Ascorbic Acid (Ascorbic Acid 500 Mg Tablet) 500 mg PO DAILY [facility] Last Admin: 11/10/22 09:38 Dose: 500 mg Documented By: FELICIA Fluticasone/Vilanterol (Fluticasone/Vilanterol 100/25 Blst.W.Dev) 1 puff INHALE RDAILY [facility] Last Admin: 11/10/22 08:31 Dose: 1 puff Documented By: TIMO Furosemide 200 mg/ Sodium (Chloride) 100 mls @ 2.5 mls/hr IVCONT .Q24H [facility] Last Admin: 11/09/22 22:05 Dose: 5 mg/hr, 2.5 mls/hr Documented By: AKUA Metoprolol Succinate (Metoprolol Succinate Er 25 Mg Tab.Er.24h) 25 mg PO DAILY [facility]; Protocol Last Admin: 11/10/22 09:38 Dose: 25 mg Documented By: FELICIA Morphine Sulfate (Morphine Sulfate 2 Mg/Ml Cartridge) 2 mg IVPUSH Q4H PRN; Protocol PRN Reason: severe pain Oxycodone HCl (Oxycodone Hcl Immed Release 5 Mg Tablet) 5 mg PO Q4H PRN PRN Reason: moderate pain Last Admin: 11/09/22 22:34 Dose: 5 mg Documented By: AKUA Potassium Chloride (Potassium Chloride Er 20 Meq Tab.Er.Prt) 40 meq PO DAILY [facility] Last Admin: 11/10/22 09:39 Dose: 40 meq Documented By: FELICIA Sodium Chloride (0.9 % Sodium Chloride Flush 3 Ml Syringe) 3 ml IVFLUSH QSHIFT [facility] Last Admin: 11/10/22 09:38 Dose: 3 ml Documented By: FELICIA Spironolactone (Spironolactone 25 Mg Tablet) 25 mg PO DAILY [facility]; Protocol Last Admin: 11/10/22 09:38 Dose: 25 mg Documented By: FELICIA Tamsulosin HCl (Tamsulosin Hcl 0.4 Mg Capsule) 0.4 mg PO DAILY [facility] Last Admin: 11/10/22 09:38 Dose: 0.4 mg Documented By: FELICIA Labs CBC & Chem 7: 11/10/22 05:17 11/10/22 05:17 Labs: Laboratory Results - last 24 hr 11/10/22 11/10/22 05:17 05:17 MCV 85.8 MCH 25.6 L MCHC 29.8 L RDW 19.3 H Plt Count 112 L MPV 10.5 Immature Gran % (Auto) Cancelled Neut % (Auto) Cancelled Lymph % (Auto) Cancelled [place] % (Auto) Cancelled Eos % (Auto) Cancelled Baso % (Auto) Cancelled Lymph # (Auto) Cancelled [place] # (Auto) Cancelled Eos # (Auto) Cancelled Baso # (Auto) Cancelled Abs Immat Gran (auto) Cancelled Absolute Neuts (auto) Cancelled Absolute Nucleated RBC 0.090 H Nucleated RBC % (auto) 0.3 H Neutrophils % (Manual) 94 H Band Neutrophils % 0 L Lymphocytes % (Manual) 3 L Monocytes % (Manual) 1 L Basophils % (Manual) 1 Metamyelocytes % 1 Abs Neuts (Manual) 33.4 H Lymphocytes # (Manual) 1.1 L Monocytes # (Manual) 0.4 Basophils # (Manual) 0.4 H Metamyelocytes # 0.4 Nucleated RBCs 1 H Hypersegmented Neuts PRESENT Platelet Estimate SLIGHTLY DECREASED Large Platelets PRESENT Plt Morphology Comment NOTED RBC Morphology NOTED Polychromasia 1+ (0-2) Basophilic Stippling 1+ (0-2) Microcytosis 1+ (5-14) Tear Drop Cells 2+ (3-5) Ovalocytes 1+ (5-14) Anion Gap 14 Estim Creat Clear Calc 45.7 Estimated GFR 56 Fasting Glucose 65 Calcium 8.3 L Total Bilirubin 0.9 AST 8 ALT 10 Alkaline Phosphatase 90 Total Protein 5.1 L Albumin 2.9 L Assessment and Plan (1) RVF (right ventricular failure): Status: Acute (2) CLL (chronic lymphocytic leukemia): Status: Chronic (3) Chronic a-fib: Status: Acute Plan 87yo M with 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 Good response -follow renals/divalents 3.Acute hypoxic resp failure - diurese + wean O2 as tolerated 4.Chronic AF -rate control adequate - continue metoprolol tartrate - apixaban Enoxaparin DNR DNI In my clinical judgment, the patient requires continued inpatient hospitalization for the following reasons: hypoxia, IV diuresis Time Spent With Patient Time: Total time managing care of this patient today ____ minutes. Quality Stroke Does the patient have a stroke diagnosis?: No VTE Prior VTE?: No VTE Risk Level:: Medical - moderate - high VTE Device Contraindication: Treatment Not Indicated VTE Drug Contraindication: N/A - Med Ordered
--- NOTE | 2022-11-10 10:45 | P.PNCA_ITS ---
Subjective Subjective Date of Service: 11/10/22 Principal diagnosis: Right ventricular failure Interval history: Zenon is feeling a lot better today. Has diuresed well. Overall has diuresed about 11 L as per the hospitalist team. His leg edema appears better and his abdominal distension is a lot better. He was given metolazone yesterday. Denies worsening shortness of breath and clinically appears more comfortable. No palpitations or lightheadedness. Review of Systems Review of Systems Yes all other systems are reviewed and are negative Physical Exam Vital Signs: Last Vital Signs Temp 99.0 F 11/10/22 07:36 Pulse 82 11/10/22 08:31 Resp 16 11/10/22 08:31 BP 98/50 L 11/10/22 07:36 Pulse Ox 93 11/10/22 07:36 O2 Del Method 11/10/22 07:36 O2 Flow Rate 2.5 11/08/22 07:09 BMI result Body Mass Index 23.1 GENERAL APPEARANCE: Ill-appearing, cachectic. NECK: no carotid bruit, no significant jugular venous distention. SKIN: no suspicious lesions, warm and dry. HEART: no murmurs, irregular rate and rhythm. LUNGS: Clear at bases. ABDOMEN: Abdomen distended. No tenderness. EXTREMITIES: Bilateral edema. PERIPHERAL PULSES: equal. NEUROLOGIC: No gross deficits, AAO X 3 Neck Neck: Yes no JVD Cardio Jugular venous distension: no JVD Objective Labs and Meds Result diagrams: 11/10/22 05:17 11/10/22 05:17 Lab results: Laboratory Results - last 24 hr 11/10/22 11/10/22 05:17 05:17 WBC 35.5 H* RBC 3.09 L Hgb 7.9 L Hct 26.5 L MCV 85.8 MCH 25.6 L MCHC 29.8 L RDW 19.3 H Plt Count 112 L MPV 10.5 Immature Gran % (Auto) Cancelled Neut % (Auto) Cancelled Lymph % (Auto) Cancelled [place] % (Auto) Cancelled Eos % (Auto) Cancelled Baso % (Auto) Cancelled Lymph # (Auto) Cancelled [place] # (Auto) Cancelled Eos # (Auto) Cancelled Baso # (Auto) Cancelled Abs Immat Gran (auto) Cancelled Absolute Neuts (auto) Cancelled Absolute Nucleated RBC 0.090 H Nucleated RBC % (auto) 0.3 H Neutrophils % (Manual) 94 H Band Neutrophils % 0 L Lymphocytes % (Manual) 3 L Monocytes % (Manual) 1 L Basophils % (Manual) 1 Metamyelocytes % 1 Abs Neuts (Manual) 33.4 H Lymphocytes # (Manual) 1.1 L Monocytes # (Manual) 0.4 Basophils # (Manual) 0.4 H Metamyelocytes # 0.4 Nucleated RBCs 1 H Hypersegmented Neuts PRESENT Platelet Estimate SLIGHTLY DECREASED Large Platelets PRESENT Plt Morphology Comment NOTED RBC Morphology NOTED Polychromasia 1+ (0-2) Basophilic Stippling 1+ (0-2) Microcytosis 1+ (5-14) Tear Drop Cells 2+ (3-5) Ovalocytes 1+ (5-14) Sodium 137 Potassium 4.5 Chloride 96 Carbon Dioxide 32 H Anion Gap 14 BUN 51 H Creatinine 1.22 Estim Creat Clear Calc 45.7 Estimated GFR 56 Fasting Glucose 65 Calcium 8.3 L Total Bilirubin 0.9 AST 8 ALT 10 Alkaline Phosphatase 90 Total Protein 5.1 L Albumin 2.9 L Progress Note: A&P Assessment and plan (1) RVF (right ventricular failure): Status: Acute Assessment and Plan: Right ventricular failure in this elderly gentleman most likely due to chronic atrial fibrillation with enlargement of right atrium TR with RV enlargement. However clinically this carries a poor prognosis in the long run. Clinically today appears much more euvolemic. He is already on high-dose torsemide at home at 60 b.i.d. can resume that today. Management of heart failure was discussed. I think the best therapy for him would be p.r.n. use of metolazone when he has initial worsening of his heart failure. This was discussed with him. Daily weight monitoring avoidance of salt loading was discussed. Additional metolazone went start 7 decompensation was discussed. However high likelihood of recurrent hospitalization in the future. Will require rehab (2) Chronic a-fib: Status: Acute Assessment and Plan: Chronic atrial fibrillation, rate controlled. Continue current rate control strategy. Continue current oral anticoagulation with Eliquis. Will follow up by his own classifier tender as outpatient. Will sign of the case at this point in time Time Spent With Patient Time: Total time managing care of this patient today ____ minutes. Progress Note: Quality Stroke Does the patient have a stroke diagnosis?: No Procedures Date of Service Date of Service: 11/10/22
--- NOTE | 2022-11-10 12:06 | MHC.CM.PN ---
[facility] IS WILLING TO OFFER. FACILITY IS PATIENT PREFERENCE. PLAN IS DC MONDAY ON PO ABX
[2022-11-10] MEDS: Furosemide 200 MG in 0.9 % Sodium Chloride 80 ML IVCONT (21:53)
[2022-11-11] VITALS (8 sets, daily range): BP systolic 90–110; BP diastolic 51–60; PULSE 76–99; RESP 16–18; TEMP 36.3–37.5; O2SAT 90–97
[2022-11-11 08:05] LABS: Hematocrit 26.2 % (42.0-52.0); Hemoglobin 7.8 g/dl (14.0-18.0); Mean Corpuscular HGB Conc 29.8 g/dl (31.0-36.0); Mean Corpuscular Hemoglobin 25.2 pg (27.0-33.0); Mean Corpuscular Volume 84.8 fL (80.0-98.0); NRBC Pct Auto 0.2 /100WBC (0.0-0.2); Platelet Count 116 X10*3/uL (160-400); Red Blood Count 3.09 X10*6/uL (4.60-5.80); Red Cell Distribution Width 19.4 % (11.0-16.0)
[2022-11-11] MEDS: Fluticasone/Vilanterol 100/25 BLST.W.DEV 1 PUFF INHALE (08:12)
[2022-11-11 08:16] LABS: White Blood Count 36.5 X10*3/uL (4.8-10.8)
[2022-11-11 08:19] LABS: Alanine Aminotransferase 6 U/L (0-40); Albumin Level 3.1 g/dL (3.5-5.0); Alkaline Phosphatase 87 U/L (39-117); Anion Gap 11 (12-20); Aspartate Amino Transferase 8 U/L (5-37); Blood Urea Nitrogen 51 mg/dL (9-16); Calcium 8.4 mg/dL (8.4-10.2); Carbon Dioxide 34 mmol/L (22-29); Chloride 94 mmol/L (96-108); Creatinine Clr Calc Pharmacy 43.5; Estimated Glomerular Filt Rate 53; Glucose Fasting 74 mg/dL (60-99); Potassium 4.2 mmol/L (3.3-5.1); Sodium 135 mmol/L (135-145); Total Protein 5.3 g/dL (6.5-8.0)
[2022-11-11] MEDS: Metoprolol Succinate ER 25 MG TAB.ER.24H PO (08:35)
[2022-11-11 08:36] LABS: Band Neutrophils Percent 5 % (3-5); Basophils Abs Manual 0.4 X10*3/uL (0.0-0.2); Basophils Percent Manual 1 % (0-2); Blast Percent 1 %; Blastocytes Absolute 0.4 X10*3/uL; Lymphocytes Absolute Manual 1.5 X10*3/uL (1.2-4.9); Lymphocytes Percent Manual 4 % (20-40); Metamyelocytes Absolute 0.7 X10*3/uL; Metamyelocytes Percent 2 %; Myelocytes Absolute 0.7 X10*/uL; Myelocytes Percent 2 %; Neutrophils Absolute Manual 32.9 X10*3/uL (2.0-8.3)
[2022-11-11] MEDS: Potassium Chloride ER 20 MEQ TAB.ER.PRT 40 MEQ PO (08:36)
[2022-11-11] MEDS: allopurinoL 300 MG TABLET PO (08:36)
[2022-11-11] MEDS: Apixaban 5 MG TABLET PO ×2 (08:36→21:40)
[2022-11-11] MEDS: Spironolactone 25 MG TABLET PO (08:36)
[2022-11-11] MEDS: Ascorbic Acid 500 MG TABLET PO (08:36)
[2022-11-11] MEDS: Tamsulosin HCL 0.4 MG CAPSULE PO (08:36)
[2022-11-11 08:39] LABS: Microcytosis 1+ (5-14) /OIF; Ovalocytes 1+ (5-14) /OIF; RBC Morphology NOTED; Schistocytes 1+ (0-2) /OIF; Spherocytes 1+ (0-2) /OIF
[2022-11-11 08:40] LABS: Hypersegmented Neutrophils PRESENT; Platelet Estimate DECREASED (NORMAL); Platelet Morphology Comment NORMAL; Polychromasia 1+ (0-2) /OIF; Tear Drop Cells 1+ (0-2) /OIF
[2022-11-11 08:47] LABS: Neutrophils Percent Manual 85 % (45-73)
--- NOTE | 2022-11-11 13:47 | MHC.CM.PN ---
[facility] FOLLOWING ALONG FOR DC. THEY ARE AWARE THAT PLANNED SUNDAY 11/11 DC IS NO LONGER HAPPENING.
--- NOTE | 2022-11-11 13:48 | P.PNIM_ITS ---
Subjective Subjective Date of Service: 11/11/22 Interval History: Feels weak and somewhat short of breath this a.m. Review of Systems Denies chest pain Denies shortness of breath Denies nausea vomiting diarrhea Denies fever chills Physical Exam Vital Signs: Vital Signs: Last Vital Signs Temp 98.5 F 11/11/22 11:20 Pulse 76 11/11/22 11:20 Resp 16 11/11/22 11:20 BP 110/54 L 11/11/22 11:20 Pulse Ox 97 11/11/22 11:20 O2 Del Method 11/11/22 11:20 O2 Flow Rate 2.5 11/11/22 04:00 BMI result Body Mass Index 23.1 Const: Other: Awake alert no acute distress Resp: Other: Clear to auscultation bilaterally no rales rhonchi or wheezes Cardio: Other: No S4; positive S1-S2; no S3 murmurs or gallops GI: Other: Soft nontender nondistended normoactive bowel sounds Extrem: Other: No edema bilaterally Objective Data Active Medications Acetaminophen (Acetaminophen 325 Mg Tablet) 650 mg PO Q4H PRN PRN Reason: mild pain Last Admin: 11/09/22 09:14 Dose: 650 mg Documented By: HERNESTO Albuterol Sulfate (Albuterol Sulfate 90 Mcg 8 Gm Inhaler) 2 puff INHALE RQ6H PRN PRN Reason: Wheezing Allopurinol (Allopurinol 300 Mg Tablet) 300 mg PO DAILY [facility] Last Admin: 11/11/22 08:36 Dose: 300 mg Documented By: FELICIA Apixaban (Apixaban 5 Mg Tablet) 5 mg PO BID [facility] Last Admin: 11/11/22 08:36 Dose: 5 mg Documented By: FELICIA Ascorbic Acid (Ascorbic Acid 500 Mg Tablet) 500 mg PO DAILY [facility] Last Admin: 11/11/22 08:36 Dose: 500 mg Documented By: FELICIA Fluticasone/Vilanterol (Fluticasone/Vilanterol 100/25 Blst.W.Dev) 1 puff INHALE RDAILY [facility] Last Admin: 11/11/22 08:12 Dose: 1 puff Documented By: LIN Furosemide 200 mg/ Sodium (Chloride) 100 mls @ 2.5 mls/hr IVCONT .Q24H [facility] Last Admin: 11/10/22 21:53 Dose: 5 mg/hr, 2.5 mls/hr Documented By: ADELAIDA Metoprolol Succinate (Metoprolol Succinate Er 25 Mg Tab.Er.24h) 25 mg PO DAILY [facility]; Protocol Last Admin: 11/11/22 08:35 Dose: 25 mg Documented By: FELICIA Morphine Sulfate (Morphine Sulfate 2 Mg/Ml Cartridge) 2 mg IVPUSH Q4H PRN; Protocol PRN Reason: severe pain Oxycodone HCl (Oxycodone Hcl Immed Release 5 Mg Tablet) 5 mg PO Q4H PRN PRN Reason: moderate pain Last Admin: 11/09/22 22:34 Dose: 5 mg Documented By: AKUA Potassium Chloride (Potassium Chloride Er 20 Meq Tab.Er.Prt) 40 meq PO DAILY [facility] Last Admin: 11/11/22 08:36 Dose: 40 meq Documented By: FELICIA Sodium Chloride (0.9 % Sodium Chloride Flush 3 Ml Syringe) 3 ml IVFLUSH QSHIFT [facility] Last Admin: 11/11/22 08:35 Dose: Not Given Documented By: FELICIA Non-Admin Reason: IV Running Spironolactone (Spironolactone 25 Mg Tablet) 25 mg PO DAILY [facility]; Protocol Last Admin: 11/11/22 08:36 Dose: 25 mg Documented By: FELICIA Tamsulosin HCl (Tamsulosin Hcl 0.4 Mg Capsule) 0.4 mg PO DAILY [facility] Last Admin: 11/11/22 08:36 Dose: 0.4 mg Documented By: FELICIA Labs CBC & Chem 7: 11/11/22 07:43 11/11/22 07:43 Labs: Laboratory Results - last 24 hr 11/11/22 11/11/22 07:43 07:43 MCV 84.8 MCH 25.2 L MCHC 29.8 L RDW 19.4 H Plt Count 116 L MPV Not Reportable Immature Gran % (Auto) Cancelled Neut % (Auto) Cancelled Lymph % (Auto) Cancelled [place] % (Auto) Cancelled Eos % (Auto) Cancelled Baso % (Auto) Cancelled Lymph # (Auto) Cancelled [place] # (Auto) Cancelled Eos # (Auto) Cancelled Baso # (Auto) Cancelled Abs Immat Gran (auto) Cancelled Absolute Neuts (auto) Cancelled Absolute Nucleated RBC 0.080 H Nucleated RBC % (auto) 0.2 Neutrophils % (Manual) 85 H Band Neutrophils % 5 Lymphocytes % (Manual) 4 L Basophils % (Manual) 1 Metamyelocytes % 2 Myelocytes % 2 Blast Cells % (Manual) 1 Abs Neuts (Manual) 32.9 H Lymphocytes # (Manual) 1.5 Basophils # (Manual) 0.4 H Metamyelocytes # 0.7 Myelocytes # 0.7 Blast Cells # 0.4 Hypersegmented Neuts PRESENT Platelet Estimate DECREASED Plt Morphology Comment NORMAL RBC Morphology NOTED Polychromasia 1+ (0-2) Microcytosis 1+ (5-14) Spherocytes 1+ (0-2) Tear Drop Cells 1+ (0-2) Ovalocytes 1+ (5-14) Schistocytes 1+ (0-2) Anion Gap 11 L Estim Creat Clear Calc 43.5 Estimated GFR 53 Fasting Glucose 74 Calcium 8.4 Total Bilirubin 1.0 AST 8 ALT 6 Alkaline Phosphatase 87 Total Protein 5.3 L Albumin 3.1 L Assessment and Plan (1) RVF (right ventricular failure): Status: Acute (2) CLL (chronic lymphocytic leukemia): Status: Chronic Plan 87yo M with 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 Good response -follow renals/divalents 3.Acute hypoxic resp failure - diurese + wean O2 as tolerated 4.Chronic AF -rate control adequate - continue metoprolol tartrate - apixaban Enoxaparin DNR DNI In my clinical judgment, the patient requires continued inpatient hospitalization for the following reasons: hypoxia, IV diuresis Time Spent With Patient Time: Total time managing care of this patient today ____ minutes. Quality Stroke Does the patient have a stroke diagnosis?: No VTE Prior VTE?: No VTE Risk Level:: Medical - moderate - high VTE Device Contraindication: Treatment Not Indicated VTE Drug Contraindication: N/A - Med Ordered
--- NOTE | 2022-11-11 20:44 | PC.NURSE ---
Pt BP was trending down this afternoon. @ 19:45 BP 94/53. Notified MD Holder and told to hold Lasix drip, which was DC. Ordered PO torsemide.
[2022-11-12] MEDS: 0.9 % Sodium Chloride Flush 3 ML SYRINGE IVFLUSH ×2 (00:23→08:36)
[2022-11-12] MEDS: Acetaminophen 325 MG TABLET 650 MG PO ×2 (01:23→05:58)
[2022-11-12 03:07] VITALS: BP 101/58; PULSE 96; RESP 18; TEMP 36.2; O2SAT 95
[2022-11-12 07:03] VITALS: BP 112/61; PULSE 101; RESP 18; TEMP 36.6; O2SAT 93
[2022-11-12] MEDS: Fluticasone/Vilanterol 100/25 BLST.W.DEV 1 PUFF INHALE (07:48)
[2022-11-12 07:49] VITALS: PULSE 84; RESP 16; O2SAT 95
[2022-11-12] MEDS: Apixaban 5 MG TABLET PO (08:36)
[2022-11-12] MEDS: Ascorbic Acid 500 MG TABLET PO (08:36)
[2022-11-12] MEDS: Tamsulosin HCL 0.4 MG CAPSULE PO (08:36)
[2022-11-12] MEDS: allopurinoL 300 MG TABLET PO (08:36)
[2022-11-12] MEDS: Metoprolol Succinate ER 25 MG TAB.ER.24H PO (08:36)
[2022-11-12] MEDS: Torsemide 20 MG TABLET 60 MG PO (08:36)
[2022-11-12] MEDS: Potassium Chloride ER 20 MEQ TAB.ER.PRT 40 MEQ PO (08:36)
[2022-11-12] MEDS: Spironolactone 25 MG TABLET PO (08:36)
--- NOTE | 2022-11-12 09:02 | MHC.CM.PN ---
Addendum entered by Norma Campbell 11/12/22 13:17: UPDATED COVID TEST RESULTS AND DC SUMMARY SENT TO [facility] VIA [facility] Addendum entered by Norma Campbell 11/12/22 09:09: VM MESSAGE LEFT FOR PTS DAUGHTER, DIANA [phone] INFORMING HER OF INTENT TO DC AND PROVIDING CM CONTACT INFORMATION MEDICARE RIGHTS DELIVERED TO PT Original Note: PT IS EXPECTED TO BE CLEARED FOR DC TO STR TODAY [facility] IS OFFERING A BED. TRANSPORT TENTATIVELY SCHEDULED FOR 1300 HOURS VIA [facility]
--- NOTE | 2022-11-12 10:50 | P.DS_ITS ---
DS: Providers Provider Date of Service: 11/12/22 Date of admission: 11/01/22 01:40 Date of discharge: 11/12/22 Primary care physician: Zeferino Cruz MD Consults: 11/01/22 15:13 Consult to Infectious Diseases Routine Consulting Provider: Betzaida Lindsey Reason for consultation: LLE cellulitus Has provider been notified: No 11/01/22 15:38 Consult to Cardiology Routine Consulting Provider: Binu Bates Reason for consultation: CHF exacrbation Has provider been notified: No 11/04/22 12:45 Consult to Hematology / Oncology Routine Consulting Provider: [facility] [place]/Hematology Reason for consultation: CLL. worsening thrombocytopenia/leukocytosis DS: Diagnosis Discharge Diagnosis (1) RVF (right ventricular failure): Status: Acute (2) CLL (chronic lymphocytic leukemia): Status: Chronic DS: Summary Hospital Course Hospital Course: 87M with PMH CLL, splenomegaly, permanent afib, chronic diastolic chf, gout, bph, sent in by [facility] for bilateral lower extremity worsening edema and erythema. patient has chornic lower extremity edema, but has noted worsening with worsening erythema, no fever. LLE worse than RLE. patient also noted worsening sob, with orthopnea, and worse on exertion. denies chest pain. in ED labs singificant for hgb 7.4 down from 8.2, creatinine 1.78, increased from 1.24 in february 2022. positive UA (patient denies symptom). Hospital Course Patient was treated with 1 week of ceftriaxone for active urinary sediment; culture consistent with Proteus. Blood cultures negative x2. Seen in consultation by Cardiology who discussed with private deer farmer. Patient placed on a Lasix drip at 10 mg an hour for 3 days and then 5 mg an hour for the remainder of his hospital stay until he was converted to p.o. on the day before discharge. Overall he was almost 13 L negative and is tolerating oral diuresis. At this point time he is medically suitable for transfer to SNF. He will also be taking metolazone every 3rd day and his potassium should be followed closely. He follow-up with his outpatient deer farmer Time Spent with Patient Time attestation: Total time managing care of this patient today ____ minutes. Discharge coordination time: Greater than 30 minutes Quality: Safe Use of Opioids Does Pt have an Active Cancer Diagnosis on the Problem List?: No Quality: Stroke Does the patient have a stroke diagnosis?: No Physical Exam Vital Signs: Vital Signs: Last Vital Signs Temp 98 F 11/12/22 07:03 Pulse 84 11/12/22 07:49 Resp 16 11/12/22 07:49 BP 112/61 11/12/22 07:03 Pulse Ox 93 11/12/22 07:03 O2 Del Method 11/12/22 07:03 O2 Flow Rate 2 11/12/22 07:03 BMI result Body Mass Index 23.1 Const: Other: Awake alert no acute distress Resp: Other: Clear to auscultation bilaterally no rales rhonchi or wheezes Cardio: Other: No S4; positive S1-S2; no S3 murmurs or gallops GI: Other: Soft nontender nondistended normoactive bowel sounds Extrem: Other: edema bilaterally Discharge Plan Discharge Anticipated Discharge Date/Time: 11/12/22 10:41 Patient Disposition: Xfer Inpatient Rehab Fac Discharge Diagnosis: Right ventricular failure Referrals: [facility] [Outside] - 1 Week Zeferino Cruz MD [Primary Care Provider] - 1 Week Discharge Medications: New spironolactone 25 mg Tablet 25 mg PO DAILY Qty: 30 0RF Protocol: Hold for SBP< HOLD for SBP < : 90 potassium chloride 20 mEq Tablet,Er Particles/Crystals 40 meq PO DAILY Qty: 60 0RF metolazone 2.5 mg tablet 2.5 mg PO .every third day Qty: 30 0RF Continued torsemide 20 mg tablet 3 tab PO BID ascorbic acid (vitamin C) 500 mg tablet 1 tab PO DAILY tamsulosin 0.4 mg capsule 1 cap PO DAILY albuterol sulfate 90 mcg/actuation HFA aerosol inhaler 2 puff PO Q6H PRN (Reason: Wheezing) metoprolol tartrate 25 mg tablet 1.5 tab PO BID Eliquis 5 mg tablet 1 tab PO BID fluticasone furoate-vilanterol [Breo Ellipta] 100-25 mcg/dose blister with device 1 puff PO DAILY allopurinol 300 mg tablet 1 tab PO DAILY Discontinued hydroxyurea 500 mg capsule 1 cap PO DAILY Discharge Orders: Discharge Order (Routine); Ordered 11/12/22 Ordered By: Rush Byrd Diet: Advance to usual diet Activity on Discharge: As tolerated Stand Alone Forms: Patient Portal Discharge page Care Plan Goals: Continue torsemide as ordered; metolazone every 3rd day Health Concerns: Attempt to maintain strict I&O Plan of Treatment: As per receiving facility Assessment: See discharge summary
[2022-11-12 11:31] LABS: COVID-19 Test Negative (Negative); IDNOW Serial# 16C4AD1C
[2022-11-12 12:00] VITALS: TEMP 36.6
== END 2022-11-12 14:33 | DRG 292 ==
LOC: HO.ED 16:36 → HO.EDOVER 11-01 01:45 → HO.S3 11-01 16:59
PROVIDERS: Family Medicine; Admitting Provider Internal Medicine; Emergency Provider Emergency Medicine; PCP Internal Medicine; Visit Provider Hospitalist
DX: I50.33 Acute on chronic diastolic (congestive) heart failure (principal); D84.81 Immunodeficiency due to conditions classified elsewhere; I48.21 Permanent atrial fibrillation; L03.116 Cellulitis of left lower limb; N17.9 Acute kidney failure, unspecified; N39.0 Urinary tract infection, site not specified; I50.813 Acute on chronic right heart failure; D46.9 Myelodysplastic syndrome, unspecified; E87.6 Hypokalemia; N40.0 Benign prostatic hyperplasia without lower urinary tract symptoms; D63.0 Anemia in neoplastic disease; B96.4 Proteus (mirabilis) (morganii) as the cause of diseases classified elsewhere; Z66 Do not resuscitate; D69.6 Thrombocytopenia, unspecified; Z87.891 Personal history of nicotine dependence; Z79.51 Long term (current) use of inhaled steroids; Z79.899 Other long term (current) drug therapy
CPT/HCPCS: 0241U; 36415; 71045; 71046; 76700; 80048; 80053; 80076; 81001; 81003; 83605; 83735; 83880; 84484; 85007; 85025; 85027; 85610; 86140; 86850; 86900; 86901; 86923; 87040; 87086; 87088; 87186; 87635; 93005; 93306; 93970; 94640; 97116; 97162; 97530; 99285; J0696; J1650; J1940; J2543; J3370; P9016; Q9957